=== PATIENT | male | born 1960 | race Caucasian/White ===

== ENCOUNTER 2016-08-14 21:38 | Emergency (ER) | payer OTHER ==
[2016-08-14] MEDS ORDERED: ASPIRIN TABLET 325 MG TAB PO ONE (21:40)
[2016-08-14] MEDS ORDERED: SODIUM CHLORIDE 0.9% (FLUSH) 10 ML SYG IV PRN (21:40)
--- NOTE | 2016-08-14 22:14 | ED.PDOC ---
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 Improving Factors: nothing Worsening Factors: nothing Nitro Today/Relief: provided by ED Aspirin Treatment Today: provided by ED Associated Symptoms: cough, shortness of breath, other - dizziness,pain on respiration Allergies/Adverse Reactions: Allergies Codeine Allergy (Verified 08/14/16 21:38) Meperidine [From Demerol HCl] Allergy (Verified 08/14/16 21:38) Home Medications: Ambulatory Orders Aripiprazole [Abilify] 30 mg PO BEDTIME 06/22/14 Trazodone HCl 100 mg PO BEDTIME 06/22/14 cloNAZepam [KlonoPIN] 0.5 mg PO BID 02/24/15 Lisinopril 10 mg PO DAILY 09/12/15 Ibuprofen 400 mg PO Q6H PRN #100 tab 02/16/16 Aspirin [Aspirin Adult Low Dose] 81 mg PO DAILY #120 tab 08/15/16 Nitroglycerin 0.4 mg (ER Disp) [Nitrostat] 0.4 mg SL Q5MIN PRN #30 tab 08/15/16 Review of Systems - Review of Systems Constitutional: States: no symptoms reported EENTM: States: no symptoms reported Respiratory: States: cough Cardiology: States: see HPI Gastrointestinal/Abdominal: States: no symptoms reported Genitourinary: States: no symptoms reported Musculoskeletal: States: no symptoms reported Skin: States: no symptoms reported Neurological: States: no symptoms reported Endocrine: States: no symptoms reported Hematologic/Lymphatic: States: no symptoms reported Past Medical History (General) - Patient Medical History Hx Seizures: No Hx Stroke: No Hx Dementia: No Hx Asthma: Yes Hx of COPD: No Hx Cardiac Disorders: Yes - Murmur Hx Congestive Heart Failure: No Hx Pacemaker: No Hx Hypertension: Yes Hx Thyroid Disease: No Hx Diabetes: No Hx Gastroesophageal Reflux: Yes Hx Renal Disease: No Hx Cancer: No Hx of HIV: No Hx Hepatitis C: No Hx MRSA: No Hx Other PMH: Yes - bipolar disorder Surgical History: appendectomy - Vaccination History Hx Tetanus, Diphtheria Vaccination: No Hx Influenza Vaccination: Yes Hx Pneumococcal Vaccination: No - Social History Hx Tobacco Use: No - quit 15 yr ago Hx Chewing Tobacco Use: No Hx Alcohol Use: No Hx Substance Use: No Hx Substance Use Treatment: No Hx Depression: No Hx Physical Abuse: No Hx Emotional Abuse: No Hx Suspected Abuse: No - Activities of Daily Living Patient Lives Alone: No - fiancee Family Medical History - Family History Mother Living Status: Still Living Hx Family Stroke: Yes Hx Cardiac Disease: Yes Hx Family Diabetes: Yes Hx Family Cancer: Yes - Lung CA Physical Exam - Physical Exam General Appearance: Alert, No apparent distress Eyes, Ears, Nose, Throat Exam: PERRL/EOMI, normal ENT inspection, pharynx normal Neck: non-tender, full range of motion, supple, normal inspection Respiratory: chest non-tender, lungs clear, normal breath sounds, no respiratory distress, no accessory muscle use Cardiovascular/Chest: normal peripheral pulses, regular rate, rhythm, no edema, no gallop, no JVD, no murmur Gastrointestinal/Abdominal: normal bowel sounds, non tender, soft, no organomegaly Extremity: normal range of motion, non-tender, normal inspection, no pedal edema Neurologic: no motor/sensory deficits, alert, normal mood/affect, oriented x 3 Skin Exam: normal color, warm/dry Lymphatic: no adenopathy Progress - Progress Progress: 08/15/16 00:54 Patient presently chest pain free;2nd set of troponin-normal;Discuss test results with patient no laboratory findings or ekg findings of myocardial injury and recommended admit for hospital observation to check for cardiac markers but declined to stay.He stated that he will follow up with his primary md. - Results/Orders Results/Orders: 08/14/16 21:40 IV Care:Saline Lock per Protoc QSHIFT Telemetry .ONCE Sodium Chloride 0.9% (Flush) [Saline Flush Syringe] 10 ml IV PRN PRN EKG Stat Pulse Ox Stat Chest,1 View [RAD] Stat 08/14/16 21:45 D-DIMER,QUANTITATIVE Stat Laboratory Results WBC 7.8 K/mm3 (4.8-10.8) 08/14/16 21:45 RBC 5.38 M/mm3 (4.70-6.10) 08/14/16 21:45 Hgb 16.2 gm/dL (14.0-18.0) 08/14/16 21:45 Hct 48.6 % (42.0-52.0) 08/14/16 21:45 MCV 90.3 fl (80.0-94.0) 08/14/16 21:45 MCH 30.1 pg (27.0-31.0) 08/14/16 21:45 MCHC 33.3 g/dL (33.0-37.0) 08/14/16 21:45 RDW 14.4 % (11.5-14.5) 08/14/16 21:45 Plt Count 163 K/mm3 (130-400) 08/14/16 21:45 MPV 7.1 fl (7.40-10.4) L 08/14/16 21:45 Absolute Neuts (auto) 4.90 K/uL (1.8-6.8) 08/14/16 21:45 Absolute Lymphs (auto) 2.00 K/uL (1.0-3.4) 08/14/16 21:45 Absolute Monos (auto) 0.60 K/uL (0.2-0.8) 08/14/16 21:45 Absolute Eos (auto) 0.20 K/uL (0.0-0.4) 08/14/16 21:45 Absolute Basos (auto) 0.00 K/uL (0.0-0.1) 08/14/16 21:45 Neutrophils % 62.6 % (42.0-78.0) 08/14/16 21:45 Lymphocytes % 26.2 % (20.0-50.0) 08/14/16 21:45 Monocytes % 8.2 % (2.0-9.0) 08/14/16 21:45 Eosinophils % 2.7 % (1.0-5.0) 08/14/16 21:45 Basophils % 0.3 % (0.0-2.0) 08/14/16 21:45 PT 11.6 SECONDS (9.4-12.5) 08/14/16 21:45 INR 1.030 08/14/16 21:45 PTT (SP) 35.3 SECONDS (25.1-36.5) 08/14/16 21:45 Sodium 138 mmol/L (135-145) 08/14/16 21:45 Potassium 3.4 mmol/L (3.6-5.0) L 08/14/16 21:45 Chloride 100 mmol/L (101-111) L 08/14/16 21:45 Carbon Dioxide 30 mmol/L (21-31) 08/14/16 21:45 Anion Gap 11.4 (12-18) L 08/14/16 21:45 BUN 20 mg/dL (7-18) H 08/14/16 21:45 Creatinine 1.06 mg/dL (0.6-1.3) 08/14/16 21:45 BUN/Creatinine Ratio 18.9 (10-20) 08/14/16 21:45 Random Glucose 125 mg/dL (70-105) H 08/14/16 21:45 Serum Osmolality 279.8 mOsm/L (275-295) 08/14/16 21:45 Calcium 9.0 mg/dL (8.4-10.2) 08/14/16 21:45 Magnesium 1.9 mg/dL (1.8-2.5) 08/14/16 21:45 Creatine Kinase 58 IU/L (38-174) 08/14/16 21:45 CK-MB (CK-2) 1.4 ng/mL (0.0-4.4) 08/14/16 21:45 CK-MB (CK-2) % Not Reportable 08/14/16 21:45 Troponin I < 0.02 ng/mL (0.01-0.05) 08/14/16 21:45 B-Natriuretic Peptide < 5.0 pg/ml (0-100) 08/14/16 21:45 08/14/16 21:40 IV Care:Saline Lock per Protoc QSHIFT Telemetry .ONCE Sodium Chloride 0.9% (Flush) [Saline Flush Syringe] 10 ml IV PRN PRN EKG Stat Pulse Ox Stat 08/15/16 00:05 EKG Assessment ONCE 08/15/16 00:15 EKG STAT Laboratory Results WBC 7.8 K/mm3 (4.8-10.8) 08/14/16 21:45 RBC 5.38 M/mm3 (4.70-6.10) 08/14/16 21:45 Hgb 16.2 gm/dL (14.0-18.0) 08/14/16 21:45 Hct 48.6 % (42.0-52.0) 08/14/16 21:45 MCV 90.3 fl (80.0-94.0) 08/14/16 21:45 MCH 30.1 pg (27.0-31.0) 08/14/16 21:45 MCHC 33.3 g/dL (33.0-37.0) 08/14/16 21:45 RDW 14.4 % (11.5-14.5) 08/14/16 21:45 Plt Count 163 K/mm3 (130-400) 08/14/16 21:45 MPV 7.1 fl (7.40-10.4) L 08/14/16 21:45 Absolute Neuts (auto) 4.90 K/uL (1.8-6.8) 08/14/16 21:45 Absolute Lymphs (auto) 2.00 K/uL (1.0-3.4) 08/14/16 21:45 Absolute Monos (auto) 0.60 K/uL (0.2-0.8) 08/14/16 21:45 Absolute Eos (auto) 0.20 K/uL (0.0-0.4) 08/14/16 21:45 Absolute Basos (auto) 0.00 K/uL (0.0-0.1) 08/14/16 21:45 Neutrophils % 62.6 % (42.0-78.0) 08/14/16 21:45 Lymphocytes % 26.2 % (20.0-50.0) 08/14/16 21:45 Monocytes % 8.2 % (2.0-9.0) 08/14/16 21:45 Eosinophils % 2.7 % (1.0-5.0) 08/14/16 21:45 Basophils % 0.3 % (0.0-2.0) 08/14/16 21:45 PT 11.6 SECONDS (9.4-12.5) 08/14/16 21:45 INR 1.030 08/14/16 21:45 PTT (SP) 35.3 SECONDS (25.1-36.5) 08/14/16 21:45 D-Dimer, Quantitative < 230 ng/mL (0-230) 08/14/16 21:45 Sodium 138 mmol/L (135-145) 08/14/16 21:45 Potassium 3.4 mmol/L (3.6-5.0) L 08/14/16 21:45 Chloride 100 mmol/L (101-111) L 08/14/16 21:45 Carbon Dioxide 30 mmol/L (21-31) 08/14/16 21:45 Anion Gap 11.4 (12-18) L 08/14/16 21:45 BUN 20 mg/dL (7-18) H 08/14/16 21:45 Creatinine 1.06 mg/dL (0.6-1.3) 08/14/16 21:45 BUN/Creatinine Ratio 18.9 (10-20) 08/14/16 21:45 Random Glucose 125 mg/dL (70-105) H 08/14/16 21:45 Serum Osmolality 279.8 mOsm/L (275-295) 08/14/16 21:45 Calcium 9.0 mg/dL (8.4-10.2) 08/14/16 21:45 Magnesium 1.9 mg/dL (1.8-2.5) 08/14/16 21:45 Creatine Kinase 58 IU/L (38-174) 08/14/16 21:45 CK-MB (CK-2) 1.4 ng/mL (0.0-4.4) 08/14/16 21:45 CK-MB (CK-2) % Not Reportable 08/14/16 21:45 Troponin I < 0.02 ng/mL (0.01-0.05) 08/15/16 00:10 B-Natriuretic Peptide < 5.0 pg/ml (0-100) 08/14/16 21:45 - EKG/XRAY/CT EKG: Sinus, no ST T wave changes Comments: no acute changes of myocardial ischemia or injury XRAY: chest - no acute abnormality Departure - Departure Clinical Impression: Chest pain, unspecified Qualifiers: Chest pain type: unspecified Qualifier Code: (R07.9) Chest pain, unspecified Time of Disposition: 01:01 Disposition: Discharge to Home or Self Care Condition: Good Departure Forms: ED Discharge - Pt. Copy, Patient Portal Self Enrollment Instructions: DI for Chest Pain Referrals: Faye Salvador NP [Primary Care Provider] - 1-2 Weeks Prescriptions: Nitroglycerin 0.4 mg (ER Disp) [Nitrostat] 0.4 mg SL Q5MIN PRN #30 tab PRN Reason: Chest Pain Aspirin [Aspirin Adult Low Dose] 81 mg PO DAILY #120 tab Home Medications: Ambulatory Orders Aripiprazole [Abilify] 30 mg PO BEDTIME 06/22/14 Trazodone HCl 100 mg PO BEDTIME 06/22/14 cloNAZepam [KlonoPIN] 0.5 mg PO BID 02/24/15 Lisinopril 10 mg PO DAILY 09/12/15 Ibuprofen 400 mg PO Q6H PRN #100 tab 02/16/16 Aspirin [Aspirin Adult Low Dose] 81 mg PO DAILY #120 tab 08/15/16 Nitroglycerin 0.4 mg (ER Disp) [Nitrostat] 0.4 mg SL Q5MIN PRN #30 tab 08/15/16 Additional Instructions: RETURN TO EMERGENCY ROOM NEEDED
[2016-08-14 22:18] VITALS: TEMP 97.4; O2SAT 95
[2016-08-14] MEDS ORDERED: NITROGLYCERIN 0.4 MG 25 EA TAB SL ONE (22:22)
[2016-08-15 01:25] VITALS: BP 108/70
[2016-08-15] MEDS ORDERED: PRAVASTATIN SODIUM 20 MG TAB PO SCH (21:00)
--- NOTE | 2016-08-18 13:46 | RAD ---
EXAM DESCRIPTION: Chest,1 View CLINICAL HISTORY: chest pain COMPARISON: October 09, 2015 FINDINGS: Cardiac silhouette is within normal limits. EKG leads project over the chest. Linear opacities at the left lower lung may represent scar versus subsegmental atelectasis. Similar findings were noted in the prior examination. There is no acute osseous process visualized. IMPRESSION: No evidence of acute cardiopulmonary disease. Electronically signed by: Refugio Lange MD 08/14/2016 10:11 PM SECTION PLOTTER OPERATOR
--- NOTE | 2016-08-23 00:22 | RAD ---
EXAM DESCRIPTION: Chest,1 View CLINICAL HISTORY: chest pain COMPARISON: October 09, 2015 FINDINGS: Cardiac silhouette is within normal limits. EKG leads project over the chest. Linear opacities at the left lower lung may represent scar versus subsegmental atelectasis. Similar findings were noted in the prior examination. There is no acute osseous process visualized. IMPRESSION: No evidence of acute cardiopulmonary disease. Electronically signed by: Refugio Lange MD 08/14/2016 10:[address]TER
--- NOTE | 2016-08-23 00:22 | RAD ---
EXAM DESCRIPTION: Chest,1 View CLINICAL HISTORY: chest pain COMPARISON: October 09, 2015 FINDINGS: Cardiac silhouette is within normal limits. EKG leads project over the chest. Linear opacities at the left lower lung may represent scar versus subsegmental atelectasis. Similar findings were noted in the prior examination. There is no acute osseous process visualized. IMPRESSION: No evidence of acute cardiopulmonary disease. Electronically signed by: Refugio Lange MD 08/14/2016 10:11 PM STEAM POWER PLANT OPERATOR
== END 2016-08-15 01:25 | disposition home or self-care (01) ==
LOC: ER 21:38
DX: R07.9 Chest pain, unspecified (principal); I25.2 Old myocardial infarction; I10 Essential (primary) hypertension; K21.9 Gastro-esophageal reflux disease without esophagitis; F31.9 Bipolar disorder, unspecified; Z88.6 Allergy status to analgesic agent; Z88.8 Allergy status to other drugs, medicaments and biological substances; Z79.899 Other long term (current) drug therapy; Z79.82 Long term (current) use of aspirin; J45.909 Unspecified asthma, uncomplicated; Z87.891 Personal history of nicotine dependence

== ENCOUNTER → 2016-11-01 | Outpatient (CLI) | payer OTHER | LOC: SL 20:30 | PROVIDERS: ATTEND Nurse Practitioner Family | DX: G47.30 Sleep apnea, unspecified (principal) ==

== ENCOUNTER → 2016-12-27 | Outpatient (CLI) | payer OTHER | END | disposition home or self-care (01) | LOC: LAB.O 09:33 | PROVIDERS: ATTEND Psychiatry & Neurology Psychiatry | DX: Z79.899 Other long term (current) drug therapy (principal) ==

== ENCOUNTER → 2017-01-11 | Outpatient (CLI) | payer OTHER ==
--- NOTE | 2017-01-12 09:32 | RAD ---
EXAM DESCRIPTION: Chest,2 Views CLINICAL HISTORY: COUGH COMPARISON: August 14, 2016 TECHNIQUE: PA/lateral FINDINGS: The lungs appear very little change from prior study with crowded markings at both lung bases, right greater than left with mild scarring or chronic atelectasis suspected. Slight increase in density in the medial right lung base may be present and minimal additional infiltrate or atelectasis suspected. The mid and upper lung spring are stable and unremarkable in heart size and vascularity is normal. IMPRESSION: Coarse basilar markings, little changed from prior study with a slight increase in density in the medial right lung base suggesting possibly minimal bronchopneumonia or additional atelectasis Electronically signed by: Owen Delarosa MD 01/12/2017 9:30 AM CDT
== END ==
LOC: RAD 13:15
PROVIDERS: ATTEND Nurse Practitioner Family
DX: R05 Cough (principal)

== ENCOUNTER → 2017-02-02 | Outpatient (CLI) | payer OTHER ==
--- NOTE | 2017-02-02 17:11 | RAD ---
EXAM DESCRIPTION: Cervical Spine,3 Views CLINICAL HISTORY: 56 years Male, COUGH COMPARISON: None. FINDINGS: Three views of the cervical spine demonstrate advanced degenerative disc narrowing and anterior spurring at C5-6 and C6-7 with milder facet arthropathy. Pulmonary apices are clear. No fracture or deformity is seen and no soft tissue masses noted. IMPRESSION: Degenerative disc changes and anterior spurring at C5-6 and C6-7. Electronically signed by: Owen Delarosa MD 02/02/2017 5:10 PM CDT
--- NOTE | 2017-02-02 17:13 | RAD ---
EXAM DESCRIPTION: Chest,2 Views CLINICAL HISTORY: RADICULOPATHY COMPARISON: January 11, 2017, August 14, 2016 TECHNIQUE: PA/lateral FINDINGS: Coarse markings in the lung bases, more prominently on the right are stable and little changed from recent study January 11, 2017. Pattern is slightly more prominent medially on the right in comparison to prior July study. An element of atelectasis or inflammation should be considered. Stranding at the lateral left lung base is actually less prominent than previously seen. The mid and upper lung spring are essentially clear except for slight thickening along the major fissure on the right which is little changed IMPRESSION: Very little change in the appearance of the chest with coarsened basilar markings particularly in the medial right lung base. Atelectasis or patchy infiltrate cannot be excluded. Electronically signed by: Owen Delarosa MD 02/02/2017 5:12 PM CDT
== END | disposition home or self-care (01) ==
LOC: YCFC.O 08:19
PROVIDERS: ATTEND Nurse Practitioner Family
DX: R05 Cough (principal); M54.2 Cervicalgia

== ENCOUNTER → 2017-02-04 | Outpatient (CLI) | payer OTHER ==
--- NOTE | 2017-02-07 08:46 | RAD ---
EXAM DESCRIPTION: None. There is no study which is sometimes this did not show Complete CLINICAL HISTORY: Left knee pain 56 years, Male, KNEE PN COMPARISON: None. FINDINGS: Three views do not demonstrate fracture or dislocation. Mild narrowing patellofemoral joint space and medially. IMPRESSION: Mild degenerative change without fracture or dislocation Electronically signed by: Stephane London MD 02/07/2017 8:45 AM CDT
--- NOTE | 2017-02-07 08:48 | RAD ---
EXAM DESCRIPTION: Knee,Right Complete CLINICAL HISTORY: 56 years, Male, KNEE PN COMPARISON: None. FINDINGS: No fracture or dislocation. Moderate narrowing patellofemoral joint space and medially with spurring. Degenerative changes slightly more advanced than left side. Possible small joint effusion. IMPRESSION: Moderate degenerative changes without fracture or dislocation. Possible small joint effusion Electronically signed by: Stephane London MD 02/07/2017 8:47 AM CDT
== END | disposition home or self-care (01) ==
LOC: RESP 13:38
PROVIDERS: ATTEND Nurse Practitioner Family
DX: R91.8 Other nonspecific abnormal finding of lung field (principal); M17.0 Bilateral primary osteoarthritis of knee

== ENCOUNTER 2017-02-07 16:48 | Emergency (ER) | payer OTHER ==
[2017-02-07] MEDS ORDERED: IPRATROPIUM/ALBUTEROL 3 ML VIAL NEB ONE ×2 (17:01→17:04)
[2017-02-07 17:02] VITALS: TEMP 97.4
[2017-02-07] MEDS ORDERED: methylPREDNISolone SODIUM SUC 125 MG/2 ML VIAL IV ONE (17:03)
[2017-02-07] MEDS ORDERED: diphenhydrAMINE HCL 50 MG/ML VIAL IV ONE (17:03)
[2017-02-07] MEDS ORDERED: MONTELUKAST 10 MG TAB PO ONE (17:03)
--- NOTE | 2017-02-07 17:26 | RAD ---
EXAM DESCRIPTION: Chest,2 Views CLINICAL HISTORY: Shortness of breath. COMPARISON: February 02, 2017 FINDINGS: Frontal and lateral views of the chest. Redemonstration of coarse markings in the lung bases, more prominent on the right, and are not significantly changed relative to February 02, 2017. An element of atelectasis, inflammation/infiltrate, and/or fibrotic scarring should be considered. Lung volumes are hyperinflated, compatible with changes of COPD. Cardiomediastinal silhouette and pulmonary vascularity are not significantly changed compared to previous. No significant pleural effusion. No pneumothorax. IMPRESSION: 1. Overall not significantly changed compared to previous. Redemonstration of coarse markings in the lung bases bilaterally, more prominent on the right. An element of atelectasis, inflammation/infiltrate, and/or fibrotic scarring should be considered. 2. COPD changes. Electronically signed by: Peter Ellington MD 02/07/2017 5:25 PM CDT
--- NOTE | 2017-02-07 17:32 | RAD ---
EXAM DESCRIPTION: Neck,Soft Tissue CLINICAL HISTORY: sob COMPARISON: None. TECHNIQUE: AP and lateral FINDINGS: Loss of joint space is observed at the C5-6 and C6-7 levels. No soft tissue swelling is observed. No radiopaque foreign bodies are detected. The epiglottis and aryepiglottic folds are intact. IMPRESSION: Degenerative changes are observed in the lower cervical spine. No airway compromise is detected. Electronically signed by: Peter Medley MD 02/07/2017 5:31 PM CDT
[2017-02-07 17:46] VITALS: O2SAT 95
--- NOTE | 2017-02-07 18:39 | CT ---
PROCEDURE: Chest w/Contrast HISTORY: abn cxr, upper chest tightness/sob Indication: Same as above Comparison: Chest x-ray done on the same day Technique: CT of the chest was done with intravenous contrast, followed by orthogonal reconstructions. The patient was injected with contrast intravenously, without any documented immediate adverse reactions. This exam was performed according to our departmental dose-optimization program, which includes automated exposure control, adjustment of the mA and/or KV according to the patient's size and/or use of iterative reconstruction technique. FINDINGS: There are no discrete airspace infiltrates, pneumothoraces or pleural effusions. Slightly increased subpleural fat on the right side gives right pleural prominence, a benign finding. Underlying changes of COPD are noted There is no gross evidence of pulmonary embolism. There is no clinically significant thoracic aortic aneurysm or dissection. There is no clinically significant pericardial effusion. There are no pathologically enlarged lymph nodes in the mediastinum, bilateral hilar region, bilateral axillary or supraclavicular region. The visualized thoracic bony rib cage appears unremarkable. There is a small hiatal hernia The visualized upper abdominal viscera appears unremarkable. Mild degenerative changes are seen in the thoracic spine. IMPRESSION: There are no acute findings on the current study. Underlying changes of COPD and a small hiatal hernia Electronically signed by: Kristian Vasquez MD 02/07/2017 6:38 PM CDT Workstation: [id number]
[2017-02-07] MEDS ORDERED: predniSONE 20 MG TAB PO ONE (18:52)
[2017-02-07] MEDS ORDERED: ALPRAZolam 0.25 MG TAB PO ONE (18:52)
--- NOTE | 2017-02-07 20:33 | ED.PDOC ---
History of Present Illness - General Chief Complaint: Respiratory Problem Stated Complaint: shortness of breath x 45 min Time Seen by Provider: 02/07/17 17:02 Source: patient, family Exam Limitations: no limitations - History of Present Illness Initial Comments: the patient is a 56-year-old male presenting to the emergency room secondary to a sensation of swelling in his throat and feeling like he is having difficulty controlling his secretions. This started approximately 1 hour prior to arrival. The patient is not tachypneic. He is oxygenating well. There are no rales or decreased breath sounds. no chest pain. No swelling of the tongue. No hives. No rash. No itching. He has not taken anything that he knows that he is allergic to. No swelling of the lips. No sore throat. No runny nose. He does have significant sleep apnea and has just started treatment for that.the patient also reports that he was diagnosed with pneumonia a month ago and has had a persistent cough since. Timing/Duration: 1 hour Severity: moderate Improving Factors: nothing Worsening Factors: nothing Associated Symptoms: denies symptoms Allergies/Adverse Reactions: Allergies Codeine Allergy (Verified 08/14/16 21:38) Meperidine [From Demerol HCl] Allergy (Verified 08/14/16 21:38) Home Medications: Ambulatory Orders Aripiprazole [Abilify] 30 mg PO BEDTIME 06/22/14 Trazodone HCl 100 mg PO BEDTIME 06/22/14 cloNAZepam [KlonoPIN] 0.5 mg PO BID 02/24/15 Lisinopril 10 mg PO DAILY 09/12/15 Ibuprofen [Goodsense Ibuprofen] 400 mg PO Q6H PRN #100 tab 02/16/16 Aspirin [Aspirin Adult Low Dose] 81 mg PO DAILY #120 tab 08/15/16 Nitroglycerin 0.4 mg (ER Disp) [Nitrostat] 0.4 mg SL Q5MIN PRN #30 tab 08/15/16 Review of Systems - Review of Systems Constitutional: States: no symptoms reported EENTM: States: no symptoms reported Respiratory: States: cough, short of breath Cardiology: States: no symptoms reported Gastrointestinal/Abdominal: States: no symptoms reported Genitourinary: States: no symptoms reported Musculoskeletal: States: no symptoms reported Skin: States: no symptoms reported Neurological: States: no symptoms reported Endocrine: States: no symptoms reported All other Systems: No Change from Baseline Past Medical History (General) - Patient Medical History Hx Seizures: No Hx Stroke: No Hx Dementia: No Hx Asthma: No Hx of COPD: No Hx Cardiac Disorders: Yes Hx Congestive Heart Failure: No Hx Pacemaker: No Hx Hypertension: Yes Hx Thyroid Disease: No Hx Diabetes: No Hx Gastroesophageal Reflux: No Hx Renal Disease: No Hx Cancer: No Hx of HIV: No Hx Hepatitis C: No Hx MRSA: No - Vaccination History Hx Tetanus, Diphtheria Vaccination: Yes Hx Influenza Vaccination: Yes Hx Pneumococcal Vaccination: Yes Immunizations Up to Date: Yes - Social History Hx Tobacco Use: No Hx Chewing Tobacco Use: No Hx Alcohol Use: No Hx Substance Use: No Hx Substance Use Treatment: No Hx Depression: No Feels Threatened In Home Enviroment: No Feels Threatened In a Relationship: No Hx Physical Abuse: No Hx Emotional Abuse: No Hx Suspected Abuse: No - Female History Patient is a Female of Child Bearing Age (10 -59 yrs old): No Patient : No Family Medical History - Family History Mother Family History: No Known Living Status: Still Living Hx Family Stroke: Yes Hx Cardiac Disease: Yes Hx Family Diabetes: Yes Hx Family Cancer: Yes - Lung CA Physical Exam - Physical Exam General Appearance: Alert, Anxious Eye Exam: bilateral normal Ears, Nose, Throat: hearing grossly normal, normal pharynx, other - the patient does look anxious. He is breathing a little bit harder than normal. I feel no swelling around the neck. I hear no stridor. His voice is a little bit hoarse but apparently that is not unusual. Neck: non-tender, full range of motion, supple Respiratory: chest non-tender, lungs clear, normal breath sounds, no respiratory distress, no accessory muscle use Cardiovascular/Chest: normal peripheral pulses, regular rate, rhythm, no edema Peripheral Pulses: radial,right: 2+, radial,left: 2+, dorsalis pedis,right: 2+, dorsalis pedis,left: 2+ Gastrointestinal/Abdominal: non tender, soft Rectal Exam: deferred Back Exam: normal inspection Extremity: normal range of motion, non-tender, normal inspection, no pedal edema , normal capillary refill Neurologic: board winder II-XII nml as tested, alert, normal mood/affect, oriented x 3 Skin Exam: normal color Comments: Vital Signs - 24 hr 02/07/17 02/07/17 02/07/17 16:56 17:03 17:05 Temperature 97.4 F L Pulse Rate 98 H Pulse Rate [ 93 H Left Radial] Respiratory 24 24 20 Rate Blood Pressure 149/89 [Left Arm] O2 Sat by Pulse 96 98 Oximetry 02/07/17 17:45 Temperature Pulse Rate Pulse Rate [ 87 Left Radial] Respiratory 22 Rate Blood Pressure 117/69 [Left Arm] O2 Sat by Pulse 95 Oximetry Progress - Progress Progress: 02/07/17 20:35 the patient is a 56-year-old male presenting with shortness of breath due to a sensation of fullness around the base of his neck. It is difficult to tell if this is an allergic reaction or possibly a mild chemical tracheitis from aspiration. The patient received a dose of steroids along with the dose of Singulair and Benadryl. The patient was monitored for approximately 5 hours. Symptoms have improved. Chest x-ray and lateral neck x-ray as well as CT scan of the chest did not show any definitive etiology. Nasolaryngoscopy by az shows mobile vocal cords. 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 He does need to continue his CPAP at night. ER warnings were given for any worsening. The patient is to follow up with his primary care doctor within the next 48 hours. The patient has symptomatically improved significantly since arrival. - Results/Orders Results/Orders: Laboratory Tests 02/07/17 02/07/17 02/07/17 17:04 17:04 17:04 WBC 6.9 RBC 4.95 Hgb 15.1 Hct 44.8 MCV 90.4 MCH 30.5 MCHC 33.7 RDW 14.1 Plt Count 184 MPV 6.9 L Absolute Neuts (auto) 4.20 Absolute Lymphs (auto) 1.60 Absolute Monos (auto) 0.80 Absolute Eos (auto) 0.30 Absolute Basos (auto) 0.00 Neutrophils % 61.5 Lymphocytes % 22.6 Monocytes % 11.4 H Eosinophils % 4.1 Basophils % 0.4 PT 12.1 INR 1.070 PTT (SP) 34.7 Sodium 140 Potassium 4.0 Chloride 104 Carbon Dioxide 28 Anion Gap 12.0 BUN 15 Creatinine 0.82 BUN/Creatinine Ratio 18.3 Random Glucose 86 Serum Osmolality 279.5 Calcium 8.6 Total Bilirubin 0.4 AST 15 ALT 13 Alkaline Phosphatase 91 Creatine Kinase 76 CK-MB (CK-2) 1.7 CK-MB (CK-2) % Not Reportable Troponin I < 0.02 B-Natriuretic Peptide < 5.0 Serum Total Protein 6.7 Albumin 3.9 Globulin 2.8 Albumin/Globulin Ratio 1.4 cT scan of the chest shows chronic pleural thickening. No definitive infiltrates. No definite masses. Chest x-ray shows chronic changes. EKG shows normal sinus rhythmwithout acute ST segment changes concerning for ischemia. Normal QT interval. Departure - Departure Clinical Impression: Dyspnea Qualifiers: Dyspnea type: shortness of breath Qualified Code(s): R06.02 - Shortness of breath; R06.00 - Dyspnea, unspecified; R06.01 - Orthopnea Disposition: Discharge to Home or Self Care Condition: Fair Departure Forms: ED Discharge - Pt. Copy, Patient Portal Self Enrollment Diet: regular diet Activity: increase activity as tolerated Referrals: Faye Salvador NP [Primary Care Provider] - 1-2 Days Home Medications: Ambulatory Orders Aripiprazole [Abilify] 30 mg PO BEDTIME 06/22/14 Trazodone HCl 100 mg PO BEDTIME 06/22/14 cloNAZepam [KlonoPIN] 0.5 mg PO BID 02/24/15 Lisinopril 10 mg PO DAILY 09/12/15 Ibuprofen [Goodsense Ibuprofen] 400 mg PO Q6H PRN #100 tab 02/16/16 Aspirin [Aspirin Adult Low Dose] 81 mg PO DAILY #120 tab 08/15/16 Nitroglycerin 0.4 mg (ER Disp) [Nitrostat] 0.4 mg SL Q5MIN PRN #30 tab 08/15/16 Additional Instructions: the patient is a 56-year-old male presenting with shortness of breath due to a sensation of fullness around the base of his neck. It is difficult to tell if this is an allergic reaction or possibly a mild chemical tracheitis from aspiration. The patient received a dose of steroids along with the dose of Singulair and Benadryl. The patient was monitored for approximately 5 hours. Symptoms have improved. Chest x-ray and lateral neck x-ray as well as CT scan of the chest did not show any definitive etiology. Nasolaryngoscopy by az shows mobile vocal cords. 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 He does need to continue his CPAP at night. ER warnings were given for any worsening. The patient is to follow up with his primary care doctor within the next 48 hours. The patient has symptomatically improved significantly since arrival.
[2017-02-07 20:52] VITALS: BP 127/75
== END 2017-02-07 20:52 | disposition home or self-care (01) ==
LOC: ER 16:48
DX: R06.02 Shortness of breath (principal); I10 Essential (primary) hypertension; G47.30 Sleep apnea, unspecified; Z80.1 Family history of malignant neoplasm of trachea, bronchus and lung; Z88.6 Allergy status to analgesic agent; Z88.8 Allergy status to other drugs, medicaments and biological substances; Z79.899 Other long term (current) drug therapy
CPT/HCPCS: 36415; 70360; 71020; 71260; 80053; 82550; 82553; 83880; 84484; 85025; 85610; 85730; 87502; 93005; 94640; J1200; J2930; J7512; J7620

== ENCOUNTER → 2017-02-09 | Outpatient (CLI) | payer OTHER ==
--- NOTE | 2017-02-09 13:21 | RAD ---
EXAM DESCRIPTION: Knee,Left Complete CLINICAL HISTORY: 56 years, Male, KNEE PN COMPARISON: February 04 FINDINGS: Four views obtained. No fracture or dislocation. Mild narrowing patellofemoral joint space. No clearly seen joint effusion. IMPRESSION: No fracture or dislocation. Moderate degenerative change. No significant difference compared to February 04 Electronically signed by: Stephane London MD 02/09/2017 1:20 PM CDT
--- NOTE | 2017-02-09 13:23 | RAD ---
EXAM DESCRIPTION: Pelvis CLINICAL HISTORY: 56 years, Male, HIP PN COMPARISON: May 31, 2016 FINDINGS: No fracture or dislocation. Mild degenerative narrowing of both hips more on the right. Mild sacroiliac degenerative change, more on the right IMPRESSION: No fracture or dislocation. Mild degenerative change. Electronically signed by: Stephane London MD 02/09/2017 1:22 PM CDT
== END ==
LOC: RAD 09:47
PROVIDERS: ATTEND Orthopaedic Surgery
DX: M25.562 Pain in left knee (principal); M25.552 Pain in left hip

== ENCOUNTER → 2017-02-14 | Outpatient (CLI) | payer OTHER ==
--- NOTE | 2017-02-14 11:53 | RAD ---
EXAM DESCRIPTION: Shoulder,Left 2 or More Views CLINICAL HISTORY: PAIN COMPARISON: None. IMPRESSION: 4 views of the left shoulder show no evidence of acute fracture, focal bone destruction, or joint dislocation. The left acromioclavicular joint is unremarkable. Mild left apical pleural thickening is seen without bone erosive changes. Visualized left ribs are unremarkable Electronically signed by: Jakob Hoffmann MD 02/14/2017 11:52 AM CDT
== END | disposition home or self-care (01) ==
LOC: RAD 07:48
PROVIDERS: ATTEND Nurse Practitioner Family
DX: M25.512 Pain in left shoulder (principal)

== ENCOUNTER → 2017-03-16 | Outpatient (CLI) | payer OTHER | END | disposition home or self-care (01) | LOC: YCFC.O 11:47 | PROVIDERS: ATTEND Nurse Practitioner Family | DX: R60.9 Edema, unspecified (principal) ==

== ENCOUNTER 2017-03-20 13:03 | Emergency (ER) | payer OTHER ==
[2017-03-20 13:52] VITALS: TEMP 98.8
[2017-03-20 15:12] VITALS: O2SAT 95
--- NOTE | 2017-03-20 15:45 | ED.PDOC ---
History of Present Illness - General Chief Complaint: Cardiovascular Problem Stated Complaint: swelling in legs and feet,shortness of breath Time Seen by Provider: 03/20/17 13:41 Source: patient Exam Limitations: no limitations - History of Present Illness Initial Comments: René Mark 56 y/o male stated that his legs had been swelled up the last one week with pain on weight bearing both legs.Also was SOB but no chest pains.No cough no fever.Has also hx of psoriasis no medication taken. Timing/Duration: other - one week Severity: moderate Worsening Factors: nothing Associated Symptoms: shortness of breath Allergies/Adverse Reactions: Allergies Codeine Allergy (Verified 08/14/16 21:38) Meperidine [From Demerol HCl] Allergy (Verified 08/14/16 21:38) Home Medications: Ambulatory Orders Aripiprazole [Abilify] 30 mg PO BEDTIME 06/22/14 Trazodone HCl 100 mg PO BEDTIME 06/22/14 cloNAZepam [KlonoPIN] 0.5 mg PO BID 02/24/15 Lisinopril 10 mg PO DAILY 09/12/15 Ibuprofen [Goodsense Ibuprofen] 400 mg PO Q6H PRN #100 tab 02/16/16 Aspirin [Aspirin Adult Low Dose] 81 mg PO DAILY #120 tab 08/15/16 Nitroglycerin 0.4 mg (ER Disp) [Nitrostat] 0.4 mg SL Q5MIN PRN #30 tab 08/15/16 Hydrochlorothiazide 25 mg PO DAILY 03/20/17 Primidone 03/20/17 Review of Systems - Review of Systems Constitutional: States: no symptoms reported EENTM: States: no symptoms reported Respiratory: States: see HPI Cardiology: States: no symptoms reported Gastrointestinal/Abdominal: States: no symptoms reported Genitourinary: States: no symptoms reported Musculoskeletal: States: see HPI Past Medical History (General) - Patient Medical History Hx Seizures: No Hx Stroke: No Hx Dementia: No Hx Asthma: No Hx of COPD: Yes Hx Cardiac Disorders: Yes Hx Congestive Heart Failure: No Hx Pacemaker: No Hx Hypertension: Yes Hx Thyroid Disease: No Hx Diabetes: No Hx Gastroesophageal Reflux: No Hx Renal Disease: No Hx Cancer: No Hx of HIV: No Hx Hepatitis C: No Hx MRSA: No Surgical History: appendectomy - Vaccination History Hx Tetanus, Diphtheria Vaccination: Yes Hx Influenza Vaccination: Yes Hx Pneumococcal Vaccination: Yes - Social History Hx Tobacco Use: Yes Hx Chewing Tobacco Use: No Hx Alcohol Use: No Hx Substance Use: No Hx Substance Use Treatment: No Hx Depression: No Hx Physical Abuse: No Hx Emotional Abuse: No Hx Suspected Abuse: No - Activities of Daily Living Patient Lives Alone: No - fiancee Grooming Ability: Independent Eating (Feeding) Ability: Independent Toileting Ability: Independent - Female History Patient : No Family Medical History - Family History Mother Family History: No Known Living Status: Still Living Hx Family Hypertension: Yes Hx Family Stroke: Yes - dad Hx Cardiac Disease: Yes Hx Family Diabetes: Yes - parents Hx Family Cancer: Yes - Lung CA Physical Exam - Physical Exam General Appearance: Alert, Comfortable, No apparent distress Eye Exam: bilateral normal Ears, Nose, Throat: hearing grossly normal, normal ENT inspection, normal pharynx Neck: non-tender, supple Respiratory: chest non-tender, lungs clear, normal breath sounds, no respiratory distress Cardiovascular/Chest: normal peripheral pulses, regular rate, rhythm, no gallop , no murmur Peripheral Pulses: radial,right: 1+, radial,left: 1+ Gastrointestinal/Abdominal: non tender, soft, no organomegaly Back Exam: no vertebral tenderness Extremity: no calf tenderness, pedal edema - +1 Neurologic: no motor/sensory deficits, alert, oriented x 3 Skin Exam: normal color, warm/dry, other - scaly lesion both feet Lymphatic: no adenopathy Progress - Progress Progress: 03/20/17 16:13 Vital Signs 03/20/17 03/20/17 13:47 15:11 Temperature 98.8 F Pulse Rate [ 91 H 62 Left Brachial] Respiratory 20 20 Rate Blood Pressure 123/72 116/77 [Left Arm] O2 Sat by Pulse 90 L 95 Oximetry - Results/Orders Results/Orders: Vital Signs - 8 hr 03/20/17 03/20/17 13:47 15:11 Temperature 98.8 F Pulse Rate [ 91 H 62 Left Brachial] Respiratory 20 20 Rate Blood Pressure 123/72 116/77 [Left Arm] O2 Sat by Pulse 90 L 95 Oximetry - EKG/XRAY/CT EKG: Sinus, no ST T wave changes Comments: heart rate-88 XRAY: chest - no acute abnormalities Departure - Departure Clinical Impression: Pain and swelling of lower leg Qualifiers: Laterality: unspecified laterality Qualified Code(s): M79.669 - Pain in unspecified lower leg; M79.89 - Other specified soft tissue disorders Time of Disposition: 17:29 Disposition: Discharge to Home or Self Care Condition: Fair Departure Forms: ED Discharge - Pt. Copy, Patient Portal Self Enrollment Referrals: Blanca Bains MD [Primary Care Provider] - 1-2 Weeks Home Medications: Ambulatory Orders Aripiprazole [Abilify] 30 mg PO BEDTIME 06/22/14 Trazodone HCl 100 mg PO BEDTIME 06/22/14 cloNAZepam [KlonoPIN] 0.5 mg PO BID 02/24/15 Lisinopril 10 mg PO DAILY 09/12/15 Ibuprofen [Goodsense Ibuprofen] 400 mg PO Q6H PRN #100 tab 02/16/16 Aspirin [Aspirin Adult Low Dose] 81 mg PO DAILY #120 tab 08/15/16 Nitroglycerin 0.4 mg (ER Disp) [Nitrostat] 0.4 mg SL Q5MIN PRN #30 tab 08/15/16 Hydrochlorothiazide 25 mg PO DAILY 03/20/17 Primidone 03/20/17 Additional Instructions: Follow up with primary md call for appointment
--- NOTE | 2017-03-20 16:39 | RAD ---
EXAM DESCRIPTION: Chest,2 Views CLINICAL HISTORY: 56 years Male sob COMPARISON: 02/07/2017 FINDINGS: Cardiac size and mediastinal contour appear unchanged. There is flattening of the hemidiaphragms bilaterally. There is some pleural thickening bilaterally as well as a triangular density overlying the right lateral chest which appears to correspond with prominent pleural fat as noted on the patient's prior examination. Sloping along the cardiac borders is also secondary to epicardial fat as noted on the previous study. There are areas of linear atelectasis in the lung bases. IMPRESSION: No acute abnormality is identified. Chronic changes as above Electronically signed by: Danica Omalley 03/20/2017 4:38 PM CDT
[2017-03-20 17:11] VITALS: BP 125/76
== END 2017-03-20 17:36 | disposition home or self-care (01) ==
LOC: ER 13:03
DX: M79.89 Other specified soft tissue disorders (principal); J44.9 Chronic obstructive pulmonary disease, unspecified; I10 Essential (primary) hypertension; M79.669 Pain in unspecified lower leg; Z87.891 Personal history of nicotine dependence; Z79.82 Long term (current) use of aspirin; Z79.899 Other long term (current) drug therapy; Z88.6 Allergy status to analgesic agent

== ENCOUNTER → 2017-04-11 | Outpatient (CLI) | payer OTHER ==
--- NOTE | 2017-04-11 09:43 | RAD ---
EXAM DESCRIPTION: XR CHEST 2 VIEWS CLINICAL HISTORY: DYSPNEA, UNSPECIFIED COMPARISON: 03/20/2017 TECHNIQUE: PA/lateral FINDINGS: Normal heart size. Prominent pulmonary arteries suggest pulmonary arterial hypertension. Similar appearance as on the prior study with mild volume loss in the lower lobes. There is no pulmonary edema, acute alveolar consolidation or large pleural effusion. Pleural thickening at the lung apices similar to previous study No acute bony abnormality IMPRESSION: Stable chest radiograph. See above Electronically signed by: Owen Antoine MD 04/11/2017 9:41 AM CDT
== END | disposition home or self-care (01) ==
LOC: LAB.O 09:00
PROVIDERS: ATTEND Nurse Practitioner Family
DX: R60.0 Localized edema (principal); R06.00 Dyspnea, unspecified

== ENCOUNTER 2017-05-19 19:55 | Emergency (ER) | payer OTHER ==
[2017-05-19] MEDS ORDERED: ASPIRIN TABLET 325 MG TAB PO ONE (20:05)
[2017-05-19] MEDS ORDERED: SODIUM CHLORIDE 0.9% (FLUSH) 10 ML SYG IV PRN (20:05)
[2017-05-19] MEDS ORDERED: KETOROLAC TROMETHAMINE INJ 30 MG/ML VIAL IV ONE (20:10)
[2017-05-19] MEDS ORDERED: predniSONE 20 MG TAB PO ONE (20:10)
[2017-05-19] MEDS ORDERED: diazePAM 2 MG TAB PO ONE (20:11)
[2017-05-19] MEDS ORDERED: POTASSIUM CHLORIDE ELIXIR 20 MEQ/15 ML UD PO ONE (20:32)
[2017-05-19 20:43] VITALS: O2SAT 94
--- NOTE | 2017-05-19 20:45 | RAD ---
EXAM DESCRIPTION: Chest,1 View CLINICAL HISTORY: chest pain COMPARISON: None FINDINGS: Cardiac silhouette is within normal limits. EKG leads project over the chest. There is no focal parenchymal or pleural disease. There is no acute osseous process visualized. IMPRESSION: No evidence of acute cardiopulmonary disease. Electronically signed by: Refugio Lange MD 05/19/2017 8:44 PM [employer]INE [employer]
[2017-05-19] MEDS ORDERED: ACETAMINOPHEN-CAFF-BUTALBITAL 1 EA TAB PO ONE (21:38)
[2017-05-19] MEDS ORDERED: ACETAMINOPHEN-CAFF-BUTALBITAL 1 EA TAB ONE (21:39)
--- NOTE | 2017-05-19 21:48 | ED.PDOC ---
History of Present Illness - General Chief Complaint: Chest Pain/[place] Stated Complaint: chest pain Time Seen by Provider: 05/19/17 20:04 Source: patient, family Exam Limitations: no limitations - History of Present Illness Initial Comments: The patient's a 57-year-old male presenting to the emergency room secondary to anterior precordial chest pain that woke him this morning at around 5 AM. The patient has recently had an increased dose of his Lasix secondary to some swelling. He is not having any shortness of breath. He is not having any particular COPD exacerbation. No fevers. He is having chest pain all day and it's been fairly consistent. He has taken a couple nitroglycerin which has not helped. The chest pain is worse with twisting and turning and and taking a deep breath or coughing or sneezing.no productive cough. No history of gout.e does have anterior chest wall tenderness to palpation. No visible changes. No bruising. No crepitus. Timing/Duration: unsure Severity: moderate Improving Factors: immobilization Worsening Factors: movement Associated Symptoms: chest pain Allergies/Adverse Reactions: Allergies Codeine Allergy (Verified 08/14/16 21:38) Meperidine [From Demerol HCl] Allergy (Verified 08/14/16 21:38) Home Medications: Ambulatory Orders Aripiprazole [Abilify] 30 mg PO BEDTIME 06/22/14 Trazodone HCl 100 mg PO BEDTIME 06/22/14 cloNAZepam [KlonoPIN] 0.5 mg PO BID 02/24/15 Lisinopril 10 mg PO DAILY 09/12/15 Ibuprofen [Goodsense Ibuprofen] 400 mg PO Q6H PRN #100 tab 02/16/16 Aspirin [Aspirin Adult Low Dose] 81 mg PO DAILY #120 tab 08/15/16 Nitroglycerin 0.4 mg (ER Disp) [Nitrostat] 0.4 mg SL Q5MIN PRN #30 tab 08/15/16 Hydrochlorothiazide 25 mg PO DAILY 03/20/17 Primidone 03/20/17 Dzigabdbpugyn-Lgqj-Ugnsxwgyqi [Fioricet] 1 ea PO Q8H PRN #21 tab 05/19/17 predniSONE [Prednisone] 20 mg PO DAILY #3 tab 05/19/17 Review of Systems - Review of Systems Constitutional: States: no symptoms reported EENTM: States: no symptoms reported Respiratory: States: no symptoms reported Cardiology: States: chest pain Gastrointestinal/Abdominal: States: no symptoms reported Genitourinary: States: no symptoms reported Musculoskeletal: States: see HPI Skin: States: no symptoms reported Neurological: States: no symptoms reported Endocrine: States: no symptoms reported All other Systems: No Change from Baseline Past Medical History (General) - Patient Medical History Hx Seizures: No Hx Stroke: No Hx Dementia: No Hx Asthma: No Hx of COPD: Yes Hx Cardiac Disorders: Yes - [place] 1988 Hx Congestive Heart Failure: No Hx Pacemaker: No Hx Hypertension: Yes Hx Thyroid Disease: No Hx Diabetes: No Hx Gastroesophageal Reflux: Yes Hx Renal Disease: No Hx Cancer: No Hx of HIV: No Hx Hepatitis C: No Hx MRSA: No - Vaccination History Hx Tetanus, Diphtheria Vaccination: Yes Hx Influenza Vaccination: No Hx Pneumococcal Vaccination: Yes - Social History Hx Tobacco Use: Yes Hx Chewing Tobacco Use: No Hx Alcohol Use: No Hx Substance Use: No Hx Substance Use Treatment: No Hx Depression: No Hx Physical Abuse: No Hx Emotional Abuse: No Hx Suspected Abuse: No - Female History Patient : No Family Medical History - Family History Mother Family History: No Known Living Status: Still Living Hx Family Hypertension: Yes Hx Family Stroke: Yes - dad Hx Cardiac Disease: Yes Hx Family Diabetes: Yes - parents Hx Family Cancer: Yes - Lung CA Physical Exam - Physical Exam General Appearance: Alert, Comfortable, No apparent distress Eye Exam: bilateral normal Ears, Nose, Throat: hearing grossly normal, normal ENT inspection, normal pharynx Neck: full range of motion, supple, normal inspection Respiratory: lungs clear, normal breath sounds, no respiratory distress, no accessory muscle use, other - anterior chest wall is uncomfortable to palpation. Cardiovascular/Chest: normal peripheral pulses, regular rate, rhythm, no edema, other - occasional PVCs on telemetry monitoring Peripheral Pulses: radial,right: 2+, radial,left: 2+, dorsalis pedis,right: 2+, dorsalis pedis,left: 2+ Gastrointestinal/Abdominal: non tender, soft Rectal Exam: deferred Back Exam: normal inspection, no CVA tenderness Extremity: normal range of motion, non-tender, normal inspection, no pedal edema , normal capillary refill Neurologic: reference test clerk II-XII nml as tested, alert, normal mood/affect, oriented x 3 Skin Exam: normal color Comments: Vital Signs - 24 hr 05/19/17 05/19/17 05/19/17 20:00 20:04 20:55 Temperature 99.2 F Pulse Rate [ 98 H 95 H 93 H left] Respiratory 18 18 18 Rate Blood Pressure 151/83 127/71 [left] O2 Sat by Pulse 94 L 94 L Oximetry 05/19/17 21:26 Temperature Pulse Rate [ 92 H left] Respiratory 16 Rate Blood Pressure 126/76 [left] O2 Sat by Pulse 94 L Oximetry Progress - Progress Progress: 05/19/17 21:49 the patient's a 57-year-old male presenting to the emergency room secondary to anterior chest pain with movement, coughing and taking a deep breath for the last 18 hours. This does appear to be much more of a costochondritis picture. Lab work, EKG and chest x-ray are reassuring. He does have some mild hypokalemia and was given a dose of potassium here. He needs to have this rechecked in a week or 2. The costochondritis may be currently being exacerbated by the increased diuretic dose. Uric acid level was normal however with dehydration gout is still a possibility. The patient did receive a dose of prednisone and will be placed on prednisone 20 mg daily for the next 3 days. Additionally he'll be written for Fioricet for as needed use for pain control. Ibuprofen 400 mg 3 times daily for the next 2 days can be taken with food as well for an anti-inflammatory effect. ER warnings were given for any significant worsening. He should follow up with his primary care doctor next week. - Results/Orders Results/Orders: 05/19/17 20:05 IV Care:Saline Lock per Protoc QSHIFT Telemetry .ONCE Sodium Chloride 0.9% (Flush) [Saline Flush Syringe] 10 ml IV PRN PRN EKG Stat Pulse Ox Stat Pulse Oximetry Assessment DAILY Laboratory Results - last 24 hr 05/19/17 05/19/17 05/19/17 20:05 20:09 20:10 WBC 10.4 RBC 4.94 Hgb 15.0 Hct 43.8 MCV 88.7 MCH 30.3 MCHC 34.2 RDW 13.6 Plt Count 214 MPV 7.4 Absolute Neuts (auto) 7.20 H Absolute Lymphs (auto) 1.80 Absolute Monos (auto) 1.00 H Absolute Eos (auto) 0.40 Absolute Basos (auto) 0.10 Neutrophils % 69.0 Lymphocytes % 17.3 L Monocytes % 9.7 H Eosinophils % 3.5 Basophils % 0.5 ESR 5 PT 11.8 INR 1.040 PTT (SP) 32.2 Sodium 134 L Potassium 3.3 L Chloride 95 L Carbon Dioxide 30 Anion Gap 12.3 BUN 17 Creatinine 1.18 BUN/Creatinine Ratio 14.4 Random Glucose 79 Serum Osmolality 268.7 L Uric Acid 6.7 Calcium 9.1 Magnesium 1.9 Total Bilirubin 0.3 Direct Bilirubin < 0.1 Indirect Bilirubin 0.2 AST 17 ALT 15 Alkaline Phosphatase 104 Creatine Kinase 136 CK-MB (CK-2) 2.6 CK-MB (CK-2) % Not Reportable Troponin I < 0.02 B-Natriuretic Peptide < 5.0 Serum Total Protein 7.2 Albumin 4.2 EKG shows mild sinus tachycardia at a rate of 105 bpm. Normal axis. No ST segment changes concerning for ischemia. Normal QT interval. Chest x-ray shows no acute pathology. This is compared with multiple previous. Departure - Departure Clinical Impression: Costochondritis, acute Disposition: Discharge to Home or Self Care Condition: Fair Departure Forms: ED Discharge - Pt. Copy, Patient Portal Self Enrollment Diet: regular diet Activity: increase activity as tolerated Referrals: Blanca Bains MD [Primary Care Provider] - 1-5 Days Prescriptions: Aafcnqmmtyjqc-Jgdc-Taacygdouj [Fioricet] 1 ea PO Q8H PRN #21 tab PRN Reason: Pain predniSONE [Prednisone] 20 mg PO DAILY #3 tab Home Medications: Ambulatory Orders Aripiprazole [Abilify] 30 mg PO BEDTIME 06/22/14 Trazodone HCl 100 mg PO BEDTIME 06/22/14 cloNAZepam [KlonoPIN] 0.5 mg PO BID 02/24/15 Lisinopril 10 mg PO DAILY 09/12/15 Ibuprofen [Goodsense Ibuprofen] 400 mg PO Q6H PRN #100 tab 02/16/16 Aspirin [Aspirin Adult Low Dose] 81 mg PO DAILY #120 tab 08/15/16 Nitroglycerin 0.4 mg (ER Disp) [Nitrostat] 0.4 mg SL Q5MIN PRN #30 tab 08/15/16 Hydrochlorothiazide 25 mg PO DAILY 03/20/17 Primidone 03/20/17 Eserbphzkevtw-Qtsm-Lzjrixxmxr [Fioricet] 1 ea PO Q8H PRN #21 tab 05/19/17 predniSONE [Prednisone] 20 mg PO DAILY #3 tab 05/19/17 Additional Instructions: the patient's a 57-year-old male presenting to the emergency room secondary to anterior chest pain with movement, coughing and taking a deep breath for the last 18 hours. This does appear to be much more of a costochondritis picture. Lab work, EKG and chest x-ray are reassuring. He does have some mild hypokalemia and was given a dose of potassium here. He needs to have this rechecked in a week or 2. The costochondritis may be currently being exacerbated by the increased diuretic dose. Uric acid level was normal however with dehydration gout is still a possibility. The patient did receive a dose of prednisone and will be placed on prednisone 20 mg daily for the next 3 days. Additionally he'll be written for Fioricet for as needed use for pain control. Ibuprofen 400 mg 3 times daily for the next 2 days can be taken with food as well for an anti-inflammatory effect. ER warnings were given for any significant worsening. He should follow up with his primary care doctor next week.
[2017-05-19 22:08] VITALS: BP 115/72; TEMP 97.2
== END 2017-05-19 22:08 | disposition home or self-care (01) ==
LOC: ER 19:55
DX: M94.0 Chondrocostal junction syndrome [Tietze] (principal); Z87.891 Personal history of nicotine dependence; I25.2 Old myocardial infarction; J44.9 Chronic obstructive pulmonary disease, unspecified; I10 Essential (primary) hypertension; Z79.82 Long term (current) use of aspirin; Z79.899 Other long term (current) drug therapy; Z88.6 Allergy status to analgesic agent
CPT/HCPCS: 36415; 71010; 80048; 80076; 82550; 82553; 83880; 84484; 84550; 85025; 85610; 85651; 85730; 93005; 94760; J1885; J7512

== ENCOUNTER → 2017-05-26 | Outpatient (CLI) | payer OTHER | END | disposition home or self-care (01) | LOC: LAB.O 12:27 | PROVIDERS: ATTEND Nurse Practitioner Family | DX: E87.6 Hypokalemia (principal) ==

== ENCOUNTER → 2017-07-11 | Outpatient (CLI) | payer OTHER ==
--- NOTE | 2017-07-11 16:24 | RAD ---
EXAM DESCRIPTION: Barium Swallow CLINICAL HISTORY: ESOPHAGEAL DYSPLASIA COMPARISON: None TECHNIQUE: Preliminary AP date night sitter radiograph. The patient swallowed barium pill with water. The patient then swallowed gas-producing granules, water, and heavy density barium under fluoroscopic visualization. The images were obtained with the patient upright and horizontal. 10 fluoroscopic cine loop images. 7 static fluoroscopic images. Total fluoroscopy time was 2.8 minutes. Dose: 144.4 mGy. FINDINGS: Patient swallowed the barium pill with water under fluoroscopic visualization. The pill could not pass into the stomach until barium was swallowed. Questionable diverticulum posterior hypopharynx. No definite penetration or aspiration. Question of ulcers at the base of the tongue to the right of midline. Primary peristaltic wave is incomplete secondary and tertiary contractions seen distally. No gastroesophageal obstruction or mass effect, but there is slightly delayed passage through the gastroesophageal sphincter. The patient rolling from prone to supine to prone, there is reflux almost to the proximal esophagus. No hiatal hernia. IMPRESSION: 1. Question of ulcers in the hypopharynx and the right tongue base. No laryngeal penetration or aspiration. If these findings are discordant with clinical findings, consider modified barium swallow examination under speech language pathologist supervision. 2. Decreased primary peristaltic wave distally with secondary and tertiary. Delayed passage through the gastroesophageal sphincter but no obstruction. 3. Marked gastroesophageal reflux to the level of the proximal esophagus. Electronically signed by: Alli Ferreira MD 07/11/2017 4:23 PM [facility]
== END | disposition home or self-care (01) ==
LOC: RAD 08:20
PROVIDERS: ATTEND Nurse Practitioner Family
DX: K22.8 Other specified diseases of esophagus (principal)

== ENCOUNTER 2017-07-27 13:03 | Emergency (ER) | payer OTHER ==
[2017-07-27 13:49] VITALS: BP 120/83; TEMP 99.7; O2SAT 92
--- NOTE | 2017-07-27 14:30 | ED.PDOC ---
History of Present Illness - General Chief Complaint: Respiratory Problem Stated Complaint: cough Time Seen by Provider: 07/27/17 13:46 Source: patient Exam Limitations: no limitations - History of Present Illness Initial Comments: the patient is a 57-year-old male presenting to the emergency room secondary to cough congestion and runny nose for approximately 18 hours. He does have a low-grade fever here today. He does have some mild body aches. He and his started having symptoms within a day of each other. He is not having any shortness of breath. His lungs are actually clear here. He does however have a history of COPD. He is oxygenating well and in no distress. Timing/Duration: 24 hours Severity: mild Improving Factors: nothing Worsening Factors: nothing Associated Symptoms: cough, fever/chills, loss of appetite, malaise Allergies/Adverse Reactions: Allergies Codeine Allergy (Verified 08/14/16 21:38) Meperidine [From Demerol HCl] Allergy (Verified 08/14/16 21:38) Home Medications: Ambulatory Orders Aripiprazole [Abilify] 30 mg PO BEDTIME 06/22/14 Trazodone HCl 100 mg PO BEDTIME 06/22/14 cloNAZepam [KlonoPIN] 0.5 mg PO BID 02/24/15 Lisinopril 10 mg PO DAILY 09/12/15 Ibuprofen [Goodsense Ibuprofen] 400 mg PO Q6H PRN #100 tab 02/16/16 Aspirin [Aspirin Adult Low Dose] 81 mg PO DAILY #120 tab 08/15/16 Nitroglycerin 0.4 mg (ER Disp) [Nitrostat] 0.4 mg SL Q5MIN PRN #30 tab 08/15/16 Hydrochlorothiazide 25 mg PO DAILY 03/20/17 Primidone 03/20/17 Zpggnkzhnauyi-Nptx-Uywtbrwurf [Fioricet] 1 ea PO Q8H PRN #21 tab 05/19/17 predniSONE [Prednisone] 20 mg PO DAILY #3 tab 05/19/17 Azithromycin 250 mg PO DAILY #5 tab 07/27/17 Review of Systems - Review of Systems Constitutional: States: chills, fever, malaise EENTM: States: nose congestion Respiratory: States: cough Cardiology: States: no symptoms reported Gastrointestinal/Abdominal: States: no symptoms reported Genitourinary: States: no symptoms reported Musculoskeletal: States: no symptoms reported Skin: States: no symptoms reported Neurological: States: headache - mild All other Systems: No Change from Baseline Past Medical History (General) - Patient Medical History Hx Seizures: No Hx Stroke: No Hx Dementia: No Hx Asthma: No Hx of COPD: Yes Hx Cardiac Disorders: Yes - [place] 1988 Hx Congestive Heart Failure: No Hx Pacemaker: No Hx Hypertension: Yes Hx Thyroid Disease: No Hx Diabetes: No Hx Gastroesophageal Reflux: Yes Hx Renal Disease: No Hx Cancer: No Hx of HIV: No Hx Hepatitis C: No Hx MRSA: No Surgical History: appendectomy - Vaccination History Hx Tetanus, Diphtheria Vaccination: Yes Hx Influenza Vaccination: No Hx Pneumococcal Vaccination: Yes - Social History Hx Tobacco Use: Yes Hx Chewing Tobacco Use: No Hx Alcohol Use: No Hx Substance Use: No Hx Substance Use Treatment: No Hx Depression: No Hx Physical Abuse: No Hx Emotional Abuse: No Hx Suspected Abuse: No - Female History Patient : No Family Medical History - Family History Mother Family History: No Known Living Status: Still Living Hx Family Hypertension: Yes Hx Family Stroke: Yes - dad Hx Cardiac Disease: Yes Hx Family Diabetes: Yes - parents Hx Family Cancer: Yes - Lung CA Physical Exam - Physical Exam General Appearance: Alert, Comfortable, No apparent distress Eye Exam: bilateral normal Ears, Nose, Throat: hearing grossly normal, normal pharynx, nasal congestion Neck: full range of motion, supple, normal inspection Respiratory: chest non-tender, lungs clear, normal breath sounds, no respiratory distress, no accessory muscle use Cardiovascular/Chest: normal peripheral pulses, regular rate, rhythm, no edema Peripheral Pulses: radial,right: 2+, radial,left: 2+, dorsalis pedis,right: 2+, dorsalis pedis,left: 2+ Gastrointestinal/Abdominal: non tender, soft, no organomegaly Rectal Exam: deferred Back Exam: normal inspection, no CVA tenderness, no vertebral tenderness Extremity: non-tender, normal inspection, no pedal edema, normal capillary refill Neurologic: registered nurse cardiac II-XII nml as tested, alert, normal mood/affect, oriented x 3 Skin Exam: normal color Comments: Vital Signs - 24 hr 07/27/17 13:30 Temperature 99.7 F H Pulse Rate [ 101 H left brachial] Respiratory 20 Rate Blood Pressure 120/83 [right brachial ] O2 Sat by Pulse 92 L Oximetry Progress - Progress Progress: 07/27/17 14:32 the patient is a 57-year-old male presenting to the emergency room with what appears to be an upper respiratory tract infection. While this is most likely a viral infection the patient is going to be placed on bacterial prophylaxis with azithromycin given his COPD history. ER warnings were given for any significant worsening. He should expect symptoms to last another 5-7 days. Motrin can be used with food to help control any fever or body aches. He needs to keep himself well hydrated. He needs to follow-up with his primary care doctor towards the end of this week or early next week. He has tested negative for flu here today. Departure - Departure Clinical Impression: Upper respiratory infection Qualifiers: URI type: unspecified viral URI Qualified Code(s): J06.9 - Acute upper respiratory infection, unspecified; B97.89 - Other viral agents as the cause of diseases classified elsewhere Disposition: Discharge to Home or Self Care Condition: Fair Departure Forms: ED Discharge - Pt. Copy, Patient Portal Self Enrollment Instructions: DI for Viral Upper Respiratory Infection -- Adult Diet: regular diet Activity: increase activity as tolerated Referrals: Blanca Bains MD [Primary Care Provider] - 1-2 Weeks Prescriptions: Azithromycin 250 mg PO DAILY #5 tab Home Medications: Ambulatory Orders Aripiprazole [Abilify] 30 mg PO BEDTIME 06/22/14 Trazodone HCl 100 mg PO BEDTIME 06/22/14 cloNAZepam [KlonoPIN] 0.5 mg PO BID 02/24/15 Lisinopril 10 mg PO DAILY 09/12/15 Ibuprofen [Goodsense Ibuprofen] 400 mg PO Q6H PRN #100 tab 02/16/16 Aspirin [Aspirin Adult Low Dose] 81 mg PO DAILY #120 tab 08/15/16 Nitroglycerin 0.4 mg (ER Disp) [Nitrostat] 0.4 mg SL Q5MIN PRN #30 tab 08/15/16 Hydrochlorothiazide 25 mg PO DAILY 03/20/17 Primidone 03/20/17 Qkzvjnookjpye-Amhg-Lmtfnxeloq [Fioricet] 1 ea PO Q8H PRN #21 tab 05/19/17 predniSONE [Prednisone] 20 mg PO DAILY #3 tab 05/19/17 Azithromycin 250 mg PO DAILY #5 tab 07/27/17 Additional Instructions: the patient is a 57-year-old male presenting to the emergency room with what appears to be an upper respiratory tract infection. While this is most likely a viral infection the patient is going to be placed on bacterial prophylaxis with azithromycin given his COPD history. ER warnings were given for any significant worsening. He should expect symptoms to last another 5-7 days. Motrin can be used with food to help control any fever or body aches. He needs to keep himself well hydrated. He needs to follow-up with his primary care doctor towards the end of this week or early next week. He has tested negative for flu here today.
== END 2017-07-27 14:48 | disposition home or self-care (01) ==
LOC: ER 13:03
DX: J06.9 Acute upper respiratory infection, unspecified (principal); B97.89 Other viral agents as the cause of diseases classified elsewhere; J44.9 Chronic obstructive pulmonary disease, unspecified; I25.2 Old myocardial infarction; I10 Essential (primary) hypertension; Z87.891 Personal history of nicotine dependence

== ENCOUNTER → 2017-08-03 | Outpatient (CLI) | payer OTHER | LOC: LAB.O 08:14 | PROVIDERS: ATTEND Psychiatry & Neurology Psychiatry | DX: Z79.899 Other long term (current) drug therapy (principal) ==

== ENCOUNTER 2017-08-16 05:47 | Emergency (ER) | payer OTHER ==
[2017-08-16 06:03] VITALS: BP 137/83; TEMP 98.9; O2SAT 96
--- NOTE | 2017-08-16 06:39 | ED.PDOC ---
History of Present Illness - General Chief Complaint: General Stated Complaint: right side rib pain Time Seen by Provider: 08/16/17 06:37 Source: patient - History of Present Illness Timing/Duration: other - yesterday was lifting furniture when R ribs began hurting Improving Factors: rest Worsening Factors: movement Associated Symptoms: chest pain Allergies/Adverse Reactions: Allergies Codeine Allergy (Verified 08/16/17 06:03) Meperidine [From Demerol HCl] Allergy (Verified 08/16/17 06:03) Home Medications: Ambulatory Orders Aripiprazole [Abilify] 30 mg PO BEDTIME 06/22/14 Trazodone HCl 100 mg PO BEDTIME 06/22/14 cloNAZepam [KlonoPIN] 0.5 mg PO BID 02/24/15 Lisinopril 10 mg PO DAILY 09/12/15 Ibuprofen [Goodsense Ibuprofen] 400 mg PO Q6H PRN #100 tab 02/16/16 Aspirin [Aspirin Adult Low Dose] 81 mg PO DAILY #120 tab 08/15/16 Nitroglycerin 0.4 mg (ER Disp) [Nitrostat] 0.4 mg SL Q5MIN PRN #30 tab 08/15/16 Hydrochlorothiazide 25 mg PO DAILY 03/20/17 Primidone 03/20/17 Trjkrjwtdkkjz-Iewd-Hgndkrlcqb [Fioricet] 1 ea PO Q8H PRN #21 tab 05/19/17 predniSONE [Prednisone] 20 mg PO DAILY #3 tab 05/19/17 Azithromycin 250 mg PO DAILY #5 tab 07/27/17 Cyclobenzaprine Tab (ER Disp) [Flexeril Tab (ER Dispense)] 10 mg PO TID PRN #15 tab 08/16/17 Tramadol HCl 50 mg PO Q4HR PRN #20 tab 08/16/17 Review of Systems - Review of Systems Constitutional: Denies: chills, fever EENTM: Denies: no symptoms reported Respiratory: Denies: cough, short of breath Cardiology: States: chest pain. Denies: palpitations, syncope Gastrointestinal/Abdominal: Denies: abdominal pain, nausea Genitourinary: Denies: no symptoms reported Musculoskeletal: Denies: joint pain, muscle pain Skin: Denies: no symptoms reported Neurological: Denies: no symptoms reported Endocrine: Denies: no symptoms reported Hematologic/Lymphatic: Denies: no symptoms reported Past Medical History (General) - Patient Medical History Hx Seizures: No Hx Stroke: No Hx Dementia: No Hx Asthma: No Hx of COPD: Yes Hx Cardiac Disorders: Yes - [place] 1988 Hx Congestive Heart Failure: No Hx Pacemaker: No Hx Hypertension: Yes Hx Thyroid Disease: No Hx Diabetes: No Hx Gastroesophageal Reflux: Yes Hx Renal Disease: No Hx Cancer: No Hx of HIV: No Hx Hepatitis C: No Hx MRSA: No Surgical History: appendectomy - Vaccination History Hx Tetanus, Diphtheria Vaccination: - unknown Hx Influenza Vaccination: Yes Hx Pneumococcal Vaccination: Yes - Social History Hx Tobacco Use: Yes Hx Chewing Tobacco Use: No Hx Alcohol Use: No Hx Substance Use: No Hx Substance Use Treatment: No Hx Depression: No Hx Physical Abuse: No Hx Emotional Abuse: No Hx Suspected Abuse: No - Female History Patient : No Family Medical History - Family History Mother Family History: No Known Living Status: Still Living Hx Family Hypertension: Yes Hx Family Stroke: Yes - dad Hx Cardiac Disease: Yes Hx Family Diabetes: Yes - parents Hx Family Cancer: Yes - Lung CA Physical Exam - Physical Exam General Appearance: Alert, Anxious, No apparent distress Eye Exam: bilateral normal Ears, Nose, Throat: hearing grossly normal Neck: non-tender, normal inspection Respiratory: lungs clear, normal breath sounds, no respiratory distress, other - diffuse tenderness over lateral ribs distally, no discoloration or crepitus Cardiovascular/Chest: normal peripheral pulses, regular rate, rhythm, no edema Gastrointestinal/Abdominal: normal bowel sounds, soft Neurologic: alert, normal mood/affect, oriented x 3 Skin Exam: normal color, warm/dry Progress - EKG/XRAY/CT XRAY: R ribs Xray Comments: no fx's Departure - Departure Clinical Impression: Chest wall injury Qualifiers: Encounter type: initial encounter Qualified Code(s): S29.9XXA - Unspecified injury of thorax, initial encounter Disposition: Discharge to Home or Self Care Departure Forms: ED Discharge - Pt. Copy, Patient Portal Self Enrollment Referrals: Blanca Bains MD [Primary Care Provider] - 1-2 Weeks Prescriptions: Tramadol HCl 50 mg PO Q4HR PRN #20 tab PRN Reason: Pain Cyclobenzaprine Tab (ER Disp) [Flexeril Tab (ER Dispense)] 10 mg PO TID PRN #15 tab PRN Reason: Muscle Spasms Home Medications: Ambulatory Orders Aripiprazole [Abilify] 30 mg PO BEDTIME 06/22/14 Trazodone HCl 100 mg PO BEDTIME 06/22/14 cloNAZepam [KlonoPIN] 0.5 mg PO BID 02/24/15 Lisinopril 10 mg PO DAILY 09/12/15 Ibuprofen [Goodsense Ibuprofen] 400 mg PO Q6H PRN #100 tab 02/16/16 Aspirin [Aspirin Adult Low Dose] 81 mg PO DAILY #120 tab 08/15/16 Nitroglycerin 0.4 mg (ER Disp) [Nitrostat] 0.4 mg SL Q5MIN PRN #30 tab 08/15/16 Hydrochlorothiazide 25 mg PO DAILY 03/20/17 Primidone 03/20/17 Mncqcqwqyaook-Yxrf-Zwtkpspslf [Fioricet] 1 ea PO Q8H PRN #21 tab 05/19/17 predniSONE [Prednisone] 20 mg PO DAILY #3 tab 05/19/17 Azithromycin 250 mg PO DAILY #5 tab 07/27/17 Cyclobenzaprine Tab (ER Disp) [Flexeril Tab (ER Dispense)] 10 mg PO TID PRN #15 tab 08/16/17 Tramadol HCl 50 mg PO Q4HR PRN #20 tab 08/16/17
--- NOTE | 2017-08-16 06:55 | RAD ---
EXAM DESCRIPTION: Ribs,Right 3 Views CLINICAL HISTORY: rib pain after lifting furniture COMPARISON: None. FINDINGS: 3 views of the right ribs. No rib fractures identified. No pneumothorax identified the visualized lungs. Possible right pleural effusion. IMPRESSION: No right rib fracture identified. Electronically signed by: Keo Chilel 08/16/2017 6:54 AM FITNESS SERVICES MANAGER
== END 2017-08-16 07:02 | disposition home or self-care (01) ==
LOC: ER 05:47
DX: S29.9XXA Unspecified injury of thorax, initial encounter (principal); I25.2 Old myocardial infarction; J44.9 Chronic obstructive pulmonary disease, unspecified; I10 Essential (primary) hypertension; X50.0XXA Overexertion from strenuous movement or load, initial encounter; Y92.9 Unspecified place or not applicable

== ENCOUNTER 2017-09-10 18:51 | Emergency (ER) | payer OTHER ==
[2017-09-10 19:12] VITALS: TEMP 98; O2SAT 95
--- NOTE | 2017-09-10 20:05 | RAD ---
Examination: XR KNEE 1-2 VIEWS dated 09/10/2017 7:12 PM CDT History: rle pain Comparison: None Technique: Three views of the right knee FINDINGS: Mild degenerative changes of the right knee without acute fracture or dislocation. No significant joint effusion. IMPRESSION: Mild degenerative changes of the right knee. Electronically signed by: Jorge Archuleta MD 09/10/2017 8:04 PM CDT
[2017-09-10] MEDS ORDERED: predniSONE 20 MG TAB PO ONE (20:12)
--- NOTE | 2017-09-10 20:19 | ED.PDOC ---
History of Present Illness - General Chief Complaint: General Stated Complaint: RLE swelling and pain Time Seen by Provider: 09/10/17 19:11 Source: patient Exam Limitations: no limitations - History of Present Illness Initial Comments: the patient is a 57-year-old male presenting to the emergency room secondary to some bilateral lower extremity discomfort with the right being worse than the left for the last 3 months. He reports a little bit of swelling. The patient notably does have psoriasis and has no known history of psoriasis. He has multiple lesions on the dorsum of his feet as well as on the inner aspect of his right calf. He does have some diffuse discomfort palpation over bilateral lower extremities. No obvious deformity otherwise. Sensation appears to be at his baseline. No lacerations. No evidence of sepsis. No history of any DVT and no palpable cords. Pain is somewhat in the right placed posteriorly for that to be on thedifferential. Timing/Duration: unsure Severity: mild Improving Factors: nothing Worsening Factors: movement Associated Symptoms: denies symptoms Allergies/Adverse Reactions: Allergies Codeine Allergy (Verified 09/10/17 19:12) Meperidine [From Demerol HCl] Allergy (Verified 09/10/17 19:12) Home Medications: Ambulatory Orders Aripiprazole [Abilify] 30 mg PO BEDTIME 06/22/14 Trazodone HCl 100 mg PO BEDTIME 06/22/14 cloNAZepam [KlonoPIN] 0.5 mg PO BID 02/24/15 Lisinopril 10 mg PO DAILY 09/12/15 Ibuprofen [Goodsense Ibuprofen] 400 mg PO Q6H PRN #100 tab 02/16/16 Aspirin [Aspirin Adult Low Dose] 81 mg PO DAILY #120 tab 08/15/16 Nitroglycerin 0.4 mg (ER Disp) [Nitrostat] 0.4 mg SL Q5MIN PRN #30 tab 08/15/16 Hydrochlorothiazide 25 mg PO DAILY 03/20/17 Primidone 03/20/17 Egudhsoygoyll-Tcna-Virvrqnjwc [Fioricet] 1 ea PO Q8H PRN #21 tab 05/19/17 predniSONE [Prednisone] 20 mg PO DAILY #3 tab 05/19/17 Azithromycin 250 mg PO DAILY #5 tab 07/27/17 Cyclobenzaprine Tab (ER Disp) [Flexeril Tab (ER Dispense)] 10 mg PO TID PRN #15 tab 08/16/17 Tramadol HCl 50 mg PO Q4HR PRN #20 tab 08/16/17 predniSONE [Prednisone] 20 mg PO DAILY #7 tab 09/10/17 Review of Systems - Review of Systems Constitutional: States: no symptoms reported EENTM: States: no symptoms reported Respiratory: States: no symptoms reported Cardiology: States: no symptoms reported Gastrointestinal/Abdominal: States: no symptoms reported Genitourinary: States: no symptoms reported Musculoskeletal: States: see HPI Skin: States: no symptoms reported Neurological: States: no symptoms reported Endocrine: States: no symptoms reported All other Systems: No Change from Baseline Past Medical History (General) - Patient Medical History Hx Seizures: No Hx Stroke: No Hx Dementia: No Hx Asthma: No Hx of COPD: Yes Hx Cardiac Disorders: Yes - [place] 1988 Hx Congestive Heart Failure: No Hx Pacemaker: No Hx Hypertension: Yes Hx Thyroid Disease: No Hx Diabetes: No Hx Gastroesophageal Reflux: Yes Hx Renal Disease: No Hx Cancer: No Hx of HIV: No Hx Hepatitis C: No Hx MRSA: No Surgical History: appendectomy, other - Vaccination History Hx Tetanus, Diphtheria Vaccination: - unknown Hx Influenza Vaccination: Yes Hx Pneumococcal Vaccination: Yes - Social History Hx Tobacco Use: Yes Hx Chewing Tobacco Use: No Hx Alcohol Use: No Hx Substance Use: No Hx Substance Use Treatment: No Hx Depression: No Hx Physical Abuse: No Hx Emotional Abuse: No Hx Suspected Abuse: No - Female History Patient is a Female of Child Bearing Age (10 -59 yrs old): No Patient : No Family Medical History - Family History Mother Family History: No Known Living Status: Still Living Hx Family Hypertension: Yes Hx Family Stroke: Yes - dad Hx Cardiac Disease: Yes Hx Family Diabetes: Yes - parents Hx Family Cancer: Yes - Lung CA Physical Exam - Physical Exam General Appearance: Alert, Comfortable, No apparent distress Eye Exam: bilateral normal Ears, Nose, Throat: normal ENT inspection, normal pharynx Neck: full range of motion, supple Respiratory: lungs clear, normal breath sounds, no respiratory distress, no accessory muscle use Cardiovascular/Chest: normal peripheral pulses, no edema, other - regular rate Peripheral Pulses: radial,right: 2+, radial,left: 2+, dorsalis pedis,right: 2+, dorsalis pedis,left: 2+ Gastrointestinal/Abdominal: non tender, soft Rectal Exam: deferred Back Exam: no CVA tenderness, no vertebral tenderness Extremity: normal range of motion, no pedal edema, normal capillary refill Neurologic: research study assistant II-XII nml as tested, alert, normal mood/affect, oriented x 3 Skin Exam: rash - he does have areas that appear to be consistent with psoriasis on the dorsum of his feet as well as a couple of areas on hisdistal legs bilaterally. Comments: Vital Signs - 24 hr 09/10/17 19:00 Temperature 98.0 F Pulse Rate [ 92 H pulse ox] Respiratory 18 Rate Blood Pressure 130/77 [Right Arm] O2 Sat by Pulse 95 Oximetry Progress - Progress Progress: 09/10/17 20:21 The patient's 57-year-old male presenting with right greater than left lower extremity pain for the last several months. He does appear to have some psoriatic lesions on his bilateral lower extremities and may be having some associated arthritic type changes. The patient is going to be placed on prednisone 20 mg daily for the next 7 days. He does need follow-up with his primary care doctor to make sure that the pain is improving and that his psoriatic lesions are improving. Additionally topical hydrocortisone can be applied 2-3 times daily to these lesions. If they are worsening instead of improving over the next 4-5 days then this treatment needs to be discontinued. Ringworms can present similarly however I do believe these are psoriatic lesions rather than ringworms. If the above treatment fails to improve the pain then additional workup along the line of neurogenic versus vascular claudication may be appropriate. lab work and x-ray are reassuring today here including a d-dimer. He does appear to be perfusing well. ER warnings are given for any significant worsening. He needs to follow-up with his primary care doctor later this coming week. - Results/Orders Results/Orders: x-ray of the right knee shows mild DJD. No fracture or dislocation. 09/10/17 19:35 CARDIAC ENZYME GROUP Stat COMPLETE METABOLIC PROFILE Stat MAGNESIUM Stat 09/10/17 20:21 Fluconazole [Diflucan Tab] 150 mg PO ONCE ONE Laboratory Results - last 24 hr 09/10/17 09/10/17 09/10/17 19:35 19:35 19:35 WBC 8.2 RBC 4.53 L Hgb 13.9 L Hct 40.6 L MCV 89.5 MCH 30.6 MCHC 34.3 RDW 14.6 H Plt Count 194 MPV 7.0 L Absolute Neuts (auto) 5.20 Absolute Lymphs (auto) 1.90 Absolute Monos (auto) 0.70 Absolute Eos (auto) 0.30 Absolute Basos (auto) 0.00 Neutrophils % 63.8 Lymphocytes % 23.3 Monocytes % 8.1 Eosinophils % 4.3 Basophils % 0.5 D-Dimer, Quantitative < 230 Sodium 143 Potassium 3.6 Chloride 107 Carbon Dioxide 28 Anion Gap 11.6 L BUN 11 Creatinine 0.80 BUN/Creatinine Ratio 13.8 Random Glucose 97 Serum Osmolality 284.3 Calcium 8.8 Magnesium 1.9 Total Bilirubin 0.7 AST 16 ALT 15 Alkaline Phosphatase 90 Creatine Kinase 95 CK-MB (CK-2) 2.6 Troponin I < 0.02 Serum Total Protein 6.9 Albumin 3.7 Globulin 3.2 Albumin/Globulin Ratio 1.2 Departure - Departure Clinical Impression: Psoriasis Disposition: Discharge to Home or Self Care Condition: Fair Departure Forms: ED Discharge - Pt. Copy, Patient Portal Self Enrollment Instructions: Psoriasis, DI for Psoriasis Diet: regular diet Activity: increase activity as tolerated Referrals: Blanca Bains MD [Primary Care Provider] - 1-2 Weeks Prescriptions: predniSONE [Prednisone] 20 mg PO DAILY #7 tab Home Medications: Ambulatory Orders Aripiprazole [Abilify] 30 mg PO BEDTIME 06/22/14 Trazodone HCl 100 mg PO BEDTIME 06/22/14 cloNAZepam [KlonoPIN] 0.5 mg PO BID 02/24/15 Lisinopril 10 mg PO DAILY 09/12/15 Ibuprofen [Goodsense Ibuprofen] 400 mg PO Q6H PRN #100 tab 02/16/16 Aspirin [Aspirin Adult Low Dose] 81 mg PO DAILY #120 tab 08/15/16 Nitroglycerin 0.4 mg (ER Disp) [Nitrostat] 0.4 mg SL Q5MIN PRN #30 tab 08/15/16 Hydrochlorothiazide 25 mg PO DAILY 03/20/17 Primidone 03/20/17 Esrhiflzdvbsf-Kcnu-Pvwnfjqwjr [Fioricet] 1 ea PO Q8H PRN #21 tab 05/19/17 predniSONE [Prednisone] 20 mg PO DAILY #3 tab 05/19/17 Azithromycin 250 mg PO DAILY #5 tab 07/27/17 Cyclobenzaprine Tab (ER Disp) [Flexeril Tab (ER Dispense)] 10 mg PO TID PRN #15 tab 08/16/17 Tramadol HCl 50 mg PO Q4HR PRN #20 tab 08/16/17 predniSONE [Prednisone] 20 mg PO DAILY #7 tab 09/10/17 Additional Instructions: The patient's 57-year-old male presenting with right greater than left lower extremity pain for the last several months. He does appear to have some psoriatic lesions on his bilateral lower extremities and may be having some associated arthritic type changes. The patient is going to be placed on prednisone 20 mg daily for the next 7 days. He does need follow-up with his primary care doctor to make sure that the pain is improving and that his psoriatic lesions are improving. Additionally topical hydrocortisone can be applied 2-3 times daily to these lesions. If they are worsening instead of improving over the next 4-5 days then this treatment needs to be discontinued. Ringworms can present similarly however I do believe these are psoriatic lesions rather than ringworms. If the above treatment fails to improve the pain then additional workup along the line of neurogenic versus vascular claudication may be appropriate. lab work and x-ray are reassuring today here including a d-dimer. He does appear to be perfusing well. ER warnings are given for any significant worsening. He needs to follow-up with his primary care doctor later this coming week. if the patient does improve with this treatment then follow up with his primary care doctor may warrant an evaluation for autoimmune diseases.
[2017-09-10] MEDS ORDERED: FLUCONAZOLE 100 MG TAB PO ONE (20:21)
[2017-09-10 21:07] VITALS: BP 127/57
== END 2017-09-10 20:35 | disposition home or self-care (01) ==
LOC: ER 18:51
DX: L40.9 Psoriasis, unspecified (principal); M79.662 Pain in left lower leg; M79.661 Pain in right lower leg; I25.2 Old myocardial infarction; J44.9 Chronic obstructive pulmonary disease, unspecified; I10 Essential (primary) hypertension; Z79.82 Long term (current) use of aspirin; Z87.891 Personal history of nicotine dependence
CPT/HCPCS: 36415; 73560; 80053; 82550; 82553; 83735; 84484; 85025; 85379; J7512

== ENCOUNTER 2017-10-15 16:50 | Emergency (ER) | payer OTHER ==
--- NOTE | 2017-10-15 19:06 | ED.PDOC ---
History of Present Illness - General Chief Complaint: Cardiovascular Problem Stated Complaint: bilateral leg pain Time Seen by Provider: 10/15/17 19:06 Source: patient Exam Limitations: no limitations - History of Present Illness Initial Comments: René Mark 57 y/o male stated that he had SOB and leg swelling on and off for several years and for the last 3 days had some exacerbation of his leg pain both.Had cardiac cath last year done by product ambassador Dr. Bravo and was told no coronary lesions.Stated had [place] 1988 while he was in service in 1988.Denies exertional chest pains ,dyspnea,or orthopnea.Also stated has copd Timing/Duration: other - see hpi Severity: moderate Improving Factors: nothing Worsening Factors: nothing Associated Symptoms: other - see hpi Allergies/Adverse Reactions: Allergies Codeine Allergy (Verified 09/10/17 19:12) Meperidine [From Demerol HCl] Allergy (Verified 09/10/17 19:12) Home Medications: Ambulatory Orders Aripiprazole [Abilify] 30 mg PO BEDTIME 06/22/14 Trazodone HCl 100 mg PO BEDTIME 06/22/14 cloNAZepam [KlonoPIN] 0.5 mg PO BID 02/24/15 Lisinopril 10 mg PO DAILY 09/12/15 Ibuprofen [Goodsense Ibuprofen] 400 mg PO Q6H PRN #100 tab 02/16/16 Aspirin [Aspirin Adult Low Dose] 81 mg PO DAILY #120 tab 08/15/16 Nitroglycerin 0.4 mg (ER Disp) [Nitrostat] 0.4 mg SL Q5MIN PRN #30 tab 08/15/16 Hydrochlorothiazide 25 mg PO DAILY 03/20/17 Primidone 03/20/17 Hdfbdsifvkhjk-Qmsa-Zsiwhrxvof [Fioricet] 1 ea PO Q8H PRN #21 tab 05/19/17 predniSONE [Prednisone] 20 mg PO DAILY #3 tab 05/19/17 Azithromycin 250 mg PO DAILY #5 tab 07/27/17 Cyclobenzaprine Tab (ER Disp) [Flexeril Tab (ER Dispense)] 10 mg PO TID PRN #15 tab 08/16/17 Tramadol HCl 50 mg PO Q4HR PRN #20 tab 08/16/17 predniSONE [Prednisone] 20 mg PO DAILY #7 tab 09/10/17 Doxycycline Hyclate 100 mg PO BID 10 Days #20 tab 04/21/18 Tramadol HCl 50 mg PO TID PRN #20 tab 10/15/17 Review of Systems - Review of Systems Constitutional: States: no symptoms reported EENTM: States: no symptoms reported Respiratory: States: see HPI Cardiology: States: see HPI Gastrointestinal/Abdominal: States: no symptoms reported Genitourinary: States: no symptoms reported Musculoskeletal: States: no symptoms reported Skin: States: no symptoms reported Neurological: States: no symptoms reported All other Systems: Reviewed and Negative, No Change from Baseline Past Medical History (General) - Patient Medical History Hx Seizures: No Hx Stroke: No Hx Dementia: No Hx Asthma: No Hx of COPD: Yes Hx Cardiac Disorders: Yes - [place] 1988 Hx Congestive Heart Failure: No Hx Pacemaker: No Hx Hypertension: Yes Hx Thyroid Disease: No Hx Diabetes: No Hx Gastroesophageal Reflux: Yes Hx Renal Disease: No Hx Cancer: No Hx of HIV: No Hx Hepatitis C: No Hx MRSA: No Surgical History: appendectomy - Vaccination History Hx Tetanus, Diphtheria Vaccination: - unknown Hx Influenza Vaccination: Yes Hx Pneumococcal Vaccination: Yes - Social History Hx Tobacco Use: Yes Hx Chewing Tobacco Use: No Hx Alcohol Use: No Hx Substance Use: No Hx Substance Use Treatment: No Hx Depression: No Hx Physical Abuse: No Hx Emotional Abuse: No Hx Suspected Abuse: No - Female History Patient : No Family Medical History - Family History Mother Family History: No Known Living Status: Still Living Hx Family Hypertension: Yes Hx Family Stroke: Yes - dad Hx Cardiac Disease: Yes Hx Family Diabetes: Yes - parents Hx Family Cancer: Yes - Lung CA Physical Exam - Physical Exam General Appearance: Alert, Comfortable, No apparent distress Eye Exam: bilateral normal Ears, Nose, Throat: hearing grossly normal, normal ENT inspection Neck: non-tender, full range of motion, supple Respiratory: chest non-tender, no respiratory distress, no accessory muscle use , wheezing - mild Cardiovascular/Chest: normal peripheral pulses, regular rate, rhythm, no murmur Peripheral Pulses: radial,right: 2+, radial,left: 2+, dorsalis pedis,right: 2+, dorsalis pedis,left: 2+ Gastrointestinal/Abdominal: non tender, soft, no organomegaly Back Exam: no CVA tenderness, no vertebral tenderness Extremity: no pedal edema, no calf tenderness Neurologic: alert, oriented x 3 Skin Exam: normal color, warm/dry Progress - Progress Progress: 10/15/17 19:22 Vital Signs - 24 hr 10/15/17 10/15/17 17:20 18:20 Temperature 98.4 F Pulse Rate [ 90 84 right brachial] Respiratory 16 18 Rate Blood Pressure 112/67 105/80 [right brachial ] O2 Sat by Pulse 92 L 96 Oximetry - Results/Orders Results/Orders: 10/15/17 19:23 IV Care:Saline Lock per Protoc QSHIFT 10/15/17 19:30 EKG STAT 10/16/17 09:00 [facility] Daily Laboratory Results - last 24 hr 10/15/17 19:35 WBC 8.5 RBC 4.68 L Hgb 14.3 Hct 41.7 L MCV 89.1 MCH 30.5 MCHC 34.2 RDW 14.5 Plt Count 197 MPV 6.8 L Absolute Neuts (auto) 5.60 Absolute Lymphs (auto) 1.90 Absolute Monos (auto) 0.60 Absolute Eos (auto) 0.30 Absolute Basos (auto) 0.00 Neutrophils % 66.2 Lymphocytes % 22.7 Monocytes % 7.6 Eosinophils % 3.3 Basophils % 0.2 PT 11.9 INR 1.030 PTT (SP) 33.7 Sodium 140 Potassium 3.8 Chloride 104 Carbon Dioxide 30 Anion Gap 9.8 L BUN 17 Creatinine 1.10 BUN/Creatinine Ratio 15.5 Random Glucose 93 Serum Osmolality 280.6 Uric Acid 5.9 Calcium 8.7 Magnesium 1.9 Total Bilirubin 0.4 Direct Bilirubin < 0.1 Indirect Bilirubin 0.3 AST 14 ALT 16 Alkaline Phosphatase 99 Creatine Kinase 112 CK-MB (CK-2) 3.0 CK-MB (CK-2) % Not Reportable Troponin I < 0.02 B-Natriuretic Peptide 11.6 Serum Total Protein 6.9 Albumin 3.9 - EKG/XRAY/CT EKG: Sinus, nonspecific ST T wave Chg Comments: HR-83 XRAY: chest - patchy infiltrates Departure - Departure Clinical Impression: Pain in both lower extremities Pneumonia Qualifiers: Pneumonia type: due to unspecified organism Laterality: right Lung location: lower lobe of lung Qualified Code(s): J18.1 - Lobar pneumonia, unspecified organism Time of Disposition: 20:52 Disposition: Discharge to Home or Self Care Condition: Fair Departure Forms: ED Discharge - Pt. Copy, Patient Portal Self Enrollment Referrals: Blanca Bains MD [Primary Care Provider] - 1-2 Weeks Prescriptions: Doxycycline Hyclate 100 mg PO BID 10 Days #20 tab Tramadol HCl 50 mg PO TID PRN #20 tab PRN Reason: Pain Home Medications: Ambulatory Orders Aripiprazole [Abilify] 30 mg PO BEDTIME 06/22/14 Trazodone HCl 100 mg PO BEDTIME 06/22/14 cloNAZepam [KlonoPIN] 0.5 mg PO BID 02/24/15 Lisinopril 10 mg PO DAILY 09/12/15 Ibuprofen [Goodsense Ibuprofen] 400 mg PO Q6H PRN #100 tab 02/16/16 Aspirin [Aspirin Adult Low Dose] 81 mg PO DAILY #120 tab 08/15/16 Nitroglycerin 0.4 mg (ER Disp) [Nitrostat] 0.4 mg SL Q5MIN PRN #30 tab 08/15/16 Hydrochlorothiazide 25 mg PO DAILY 03/20/17 Primidone 03/20/17 Cgbisglgenthg-Kixx-Ewkpoalgds [Fioricet] 1 ea PO Q8H PRN #21 tab 05/19/17 predniSONE [Prednisone] 20 mg PO DAILY #3 tab 05/19/17 Azithromycin 250 mg PO DAILY #5 tab 07/27/17 Cyclobenzaprine Tab (ER Disp) [Flexeril Tab (ER Dispense)] 10 mg PO TID PRN #15 tab 08/16/17 Tramadol HCl 50 mg PO Q4HR PRN #20 tab 08/16/17 predniSONE [Prednisone] 20 mg PO DAILY #7 tab 09/10/17 Doxycycline Hyclate 100 mg PO BID 10 Days #20 tab 10/15/17 Tramadol HCl 50 mg PO TID PRN #20 tab 10/15/17 Additional Instructions: Follow up with primary Md 17 October 2017;Return to ER as needed
[2017-10-15] MEDS ORDERED: BUMETANIDE 0.25 MG/ML VIAL IV ONE (19:23)
[2017-10-15] MEDS ORDERED: IPRATROPIUM/ALBUTEROL 3 ML VIAL NEB ONE (19:24)
--- NOTE | 2017-10-15 19:58 | RAD ---
EXAM DESCRIPTION: Chest,1 View CLINICAL HISTORY:57 years Male, sob Comparison: August 16, 2017 FINDINGS: Right basilar patchy opacities may represent atelectasis or pneumonia. Possible small right pleural effusion. Cardiac and mediastinal silhouette is unremarkable. No acute osseous abnormality. Soft tissues are unremarkable. IMPRESSION: Right basilar patchy opacities may represent atelectasis or pneumonia. Possible small right pleural effusion Electronically signed by: Per Santamaria MD 10/15/2017 7:57 PM CDT
[2017-10-15] MEDS ORDERED: KETOROLAC TROMETHAMINE INJ 30 MG/ML VIAL IV ONE (20:49)
[2017-10-15] MEDS ORDERED: traMADol HCL 50 MG TAB PO ONE (20:49)
[2017-10-15] MEDS ORDERED: cefTRIAXone SODIUM 1 GM VIAL IM ONE (20:49)
[2017-10-15] MEDS ORDERED: DOXYCYCLINE HYCLATE CAP 100 MG CAP PO ONE (20:49)
[2017-10-15] MEDS ORDERED: KETOROLAC TROMETHAMINE INJ 30 MG/ML VIAL IM ONE (21:10)
[2017-10-15] MEDS ORDERED: LIDOCAINE 1% 10 ML VIAL INJ ONE (21:23)
[2017-10-15 22:02] VITALS: BP 129/89
[2017-10-15 22:03] VITALS: TEMP 97.2; O2SAT 93
== END 2017-10-15 22:14 | disposition home or self-care (01) ==
LOC: ER 16:50
DX: M79.662 Pain in left lower leg (principal); M79.661 Pain in right lower leg; J18.1 Lobar pneumonia, unspecified organism; J44.9 Chronic obstructive pulmonary disease, unspecified; I25.2 Old myocardial infarction; I10 Essential (primary) hypertension; K21.9 Gastro-esophageal reflux disease without esophagitis; Z79.899 Other long term (current) drug therapy; Z79.82 Long term (current) use of aspirin
CPT/HCPCS: 36415; 71045; 80048; 80076; 82550; 82553; 83880; 84484; 84550; 85025; 85610; 85730; 93005; 94640; J0696; J1885; J7620

== ENCOUNTER 2017-11-27 04:36 | Emergency (ER) | payer OTHER ==
[2017-11-27] MEDS ORDERED: NITROGLYCERIN 0.4 MG 25 EA TAB SL ONE ×2 (04:43→04:48)
[2017-11-27] MEDS ORDERED: ASPIRIN TABLET 325 MG TAB ONE (04:43)
[2017-11-27] MEDS ORDERED: SODIUM CHLORIDE 0.9% (FLUSH) 10 ML SYG IV PRN (04:48)
[2017-11-27] MEDS ORDERED: ASPIRIN TABLET 325 MG TAB PO ONE (04:48)
--- NOTE | 2017-11-27 05:07 | RAD ---
EXAM: AP CHEST RADIOGRAPH CLINICAL INDICATION: Acute chest pain. Shortness of breath. COMPARISON: Compared to the chest radiograph October 15, 2017. FINDINGS: Cardiac size and pulmonary vasculature are normal. Lungs are clear. No pleural effusions or pneumothorax. IMPRESSION: Normal chest radiograph. Electronically signed by: Luis A Chin MD 11/27/2017 5:05 AM CDT
[2017-11-27] MEDS ORDERED: HYDROcodone 5MG/APAP 325MG 1 EA TAB PO ONE (05:09)
[2017-11-27] MEDS ORDERED: IPRATROPIUM/ALBUTEROL 3 ML VIAL NEB ONE (05:10)
[2017-11-27] MEDS ORDERED: predniSONE 20 MG TAB PO ONE (05:12)
--- NOTE | 2017-11-27 05:15 | ED.PDOC ---
History of Present Illness - General Chief Complaint: Chest Pain/CA Stated Complaint: Chest pain, dyspnea Time Seen by Provider: 11/27/17 05:04 Source: patient Exam Limitations: no limitations - History of Present Illness Initial Comments: The patient is a 57-year-old male presenting to the emergency room secondary to chest pain starting around 11:00 last night. The chest pain started fairly suddenly. He is attempted several medications at home. He received a dose of nitroglycerin here. None of which have helped. The pain is around the sternum and on palpation is reproducible just to the right side of his sternum. He has had costochondral pain in the past. He does get anxious with this pain. He has apparently previously had a heart attack back in 1988 but no significant cardiac issues since that time. He does have known COPD. He does have occasional PVCs on telemetry. No syncope or near syncope. The pain is made worse with taking a deep breath and coughing. No dizziness. No edema. Timing/Duration: unsure Severity: moderate Improving Factors: nothing Worsening Factors: movement Associated Symptoms: chest pain, cough, shortness of breath Allergies/Adverse Reactions: Allergies Codeine Allergy (Verified 09/10/17 19:12) Meperidine [From Demerol HCl] Allergy (Verified 09/10/17 19:12) Home Medications: Ambulatory Orders Aripiprazole [Abilify] 30 mg PO BEDTIME 06/22/14 Trazodone HCl 100 mg PO BEDTIME 06/22/14 cloNAZepam [KlonoPIN] 0.5 mg PO BID 02/24/15 Lisinopril 10 mg PO DAILY 09/12/15 Ibuprofen [Goodsense Ibuprofen] 400 mg PO Q6H PRN #100 tab 02/16/16 Aspirin [Aspirin Adult Low Dose] 81 mg PO DAILY #120 tab 08/15/16 Nitroglycerin 0.4 mg (ER Disp) [Nitrostat] 0.4 mg SL Q5MIN PRN #30 tab 08/15/16 Hydrochlorothiazide 25 mg PO DAILY 03/20/17 Primidone 03/20/17 Zbnamhulicjmg-Tycg-Hhkhjpqakb [Fioricet] 1 ea PO Q8H PRN #21 tab 05/19/17 predniSONE [Prednisone] 20 mg PO DAILY #3 tab 05/19/17 Azithromycin 250 mg PO DAILY #5 tab 07/27/17 Cyclobenzaprine Tab (ER Disp) [Flexeril Tab (ER Dispense)] 10 mg PO TID PRN #15 tab 08/16/17 Tramadol HCl 50 mg PO Q4HR PRN #20 tab 08/16/17 predniSONE [Prednisone] 20 mg PO DAILY #7 tab 09/10/17 Doxycycline Hyclate 100 mg PO BID 10 Days #20 tab 10/15/17 Tramadol HCl 50 mg PO TID PRN #20 tab 10/15/17 Azithromycin 500 mg PO DAILY #5 tab 11/27/17 Tramadol HCl 50 mg PO Q6HR PRN #30 tab 11/27/17 predniSONE [Prednisone] 20 mg PO DAILY #5 tab 11/27/17 Review of Systems - Review of Systems Constitutional: States: no symptoms reported EENTM: States: no symptoms reported Respiratory: States: cough - ild, short of breath Cardiology: States: chest pain Gastrointestinal/Abdominal: States: no symptoms reported Genitourinary: States: no symptoms reported Musculoskeletal: States: no symptoms reported Skin: States: no symptoms reported Neurological: States: anxiety Endocrine: States: no symptoms reported All other Systems: No Change from Baseline Past Medical History (General) - Patient Medical History Hx Seizures: No Hx Stroke: No Hx Dementia: No Hx Asthma: No Hx of COPD: Yes Hx Cardiac Disorders: Yes - [place] 1988 Hx Congestive Heart Failure: No Hx Pacemaker: No Hx Hypertension: Yes Hx Thyroid Disease: No Hx Diabetes: No Hx Gastroesophageal Reflux: Yes Hx Renal Disease: No Hx Cancer: No Hx of HIV: No Hx Hepatitis C: No Hx MRSA: No Surgical History: angioplasty, appendectomy - Vaccination History Hx Tetanus, Diphtheria Vaccination: No Hx Influenza Vaccination: Yes Hx Pneumococcal Vaccination: Yes Immunizations Up to Date: Yes - Social History Hx Tobacco Use: No Hx Chewing Tobacco Use: No Hx Alcohol Use: No Hx Substance Use: No Hx Substance Use Treatment: No Hx Depression: No Hx Physical Abuse: No Hx Emotional Abuse: No Hx Suspected Abuse: No - Female History Patient : No Family Medical History - Family History Mother Family History: No Known Living Status: Still Living Hx Family Hypertension: Yes Hx Family Stroke: Yes - dad Hx Cardiac Disease: Yes Hx Family Diabetes: Yes - parents Hx Family Cancer: Yes - Lung CA Physical Exam - Physical Exam General Appearance: Alert, Comfortable, No apparent distress Eye Exam: bilateral normal Ears, Nose, Throat: hearing grossly normal - voice is chronically hoarse, normal ENT inspection, normal pharynx Neck: full range of motion, supple Respiratory: lungs clear, normal breath sounds, no respiratory distress, no accessory muscle use Cardiovascular/Chest: normal peripheral pulses, regular rate, rhythm - occasional PVCs on telemetry, no edema Peripheral Pulses: radial,right: 2+, radial,left: 2+, dorsalis pedis,right: 2+, dorsalis pedis,left: 2+ Gastrointestinal/Abdominal: non tender, soft Rectal Exam: deferred Back Exam: normal inspection, no CVA tenderness, no vertebral tenderness Extremity: normal range of motion, non-tender, no pedal edema, no calf tenderness, normal capillary refill Neurologic: nursing specialist II-XII nml as tested, alert, normal mood/affect - he is anxious , oriented x 3 Skin Exam: normal color Comments: Vital Signs - 24 hr 11/27/17 11/27/17 04:47 04:57 Pulse Rate [ 93 H 93 H left radial] Respiratory 24 24 Rate Blood Pressure 135/73 [Left Arm] O2 Sat by Pulse 96 Oximetry Progress - Progress Progress: 11/27/17 05:40 the patient is a 57-year-old male presenting to the emergency room secondary to chest pain that is localizing just to the right of the sternum. He has had recurrent episodes costochondritis at that site. His pain has been present and fairly steady for the last 6 hours. Cardiac enzymes are completely negative. D-dimer is negative. EKG shows no acute changes. Pain is reproducible with palpation. nitroglycerin failed to help. He does have mild Rales and wheezes in the right midlung field underlying the area. Chest x-ray is negative. The diagnosis for this patient is going to be costochondritis and COPD exacerbation. The patient is going to be placed on prednisone 20 mg daily for the next 5 days. He is also going to be placed on azithromycin for the next 5 days. He needs to increase his DuoNeb treatments to 4 times a day rather than 2 times daily. He will also be written for some tramadol for pain control for his rib pain. ER warnings were given. He should follow back up with his primary care doctor later this week. Given the clinical presentation, lab findings, EKG findings, chest x-ray findings and the fact that he had a negative cath with Dr. Bravo less than 2 years ago makes this a low probability of this chest pain being from a cardiac source. vital signs are stable and the patient's questions have been answered. - Results/Orders Results/Orders: chest x-ray shows no significant infiltrate. There is no cardiomegaly or effusion. No evidence of fluid overload. EKG Stat normal sinus rhythm at 94 bpm.very mild right axis deviation. No acute ST segment changes concerning for ischemia. EKG is consistent with the EKG from September 2017. Laboratory Results - last 24 hr 11/27/17 11/27/17 04:48 04:48 WBC 6.9 RBC 4.43 L Hgb 13.4 L Hct 39.3 L MCV 88.6 MCH 30.2 MCHC 34.1 RDW 14.4 Plt Count 183 MPV 6.6 L Absolute Neuts (auto) 4.30 Absolute Lymphs (auto) 1.70 Absolute Monos (auto) 0.60 Absolute Eos (auto) 0.30 Absolute Basos (auto) 0.00 Neutrophils % 62.2 Lymphocytes % 24.2 Monocytes % 8.6 Eosinophils % 4.7 Basophils % 0.3 PT 12.0 INR 1.030 PTT (SP) 32.8 D-Dimer, Quantitative < 200 Sodium 136 Potassium 3.7 Chloride 103 Carbon Dioxide 28 Anion Gap 8.7 L BUN 16 Creatinine 0.99 BUN/Creatinine Ratio 16.2 Random Glucose 110 H Serum Osmolality 273.8 L Calcium 8.6 Magnesium 1.8 Creatine Kinase 72 CK-MB (CK-2) 1.9 CK-MB (CK-2) % Not Reportable Troponin I < 0.02 B-Natriuretic Peptide < 5.0 Departure - Departure Clinical Impression: Costochondritis, acute, COPD with acute exacerbation Disposition: Discharge to Home or Self Care Condition: Fair Departure Forms: ED Discharge - Pt. Copy, Patient Portal Self Enrollment Instructions: DI for Costochondritis, DI for Chronic Obstructive Pulmonary Disease Diet: regular diet Activity: increase activity as tolerated Referrals: Blanca Bains MD [Primary Care Provider] - 1-5 Days Prescriptions: Tramadol HCl 50 mg PO Q6HR PRN #30 tab PRN Reason: Moderate Pain Azithromycin 500 mg PO DAILY #5 tab predniSONE [Prednisone] 20 mg PO DAILY #5 tab Home Medications: Ambulatory Orders Aripiprazole [Abilify] 30 mg PO BEDTIME 06/22/14 Trazodone HCl 100 mg PO BEDTIME 06/22/14 cloNAZepam [KlonoPIN] 0.5 mg PO BID 02/24/15 Lisinopril 10 mg PO DAILY 09/12/15 Ibuprofen [Goodsense Ibuprofen] 400 mg PO Q6H PRN #100 tab 02/16/16 Aspirin [Aspirin Adult Low Dose] 81 mg PO DAILY #120 tab 08/15/16 Nitroglycerin 0.4 mg (ER Disp) [Nitrostat] 0.4 mg SL Q5MIN PRN #30 tab 08/15/16 Hydrochlorothiazide 25 mg PO DAILY 03/20/17 Primidone 03/20/17 Enoqdicbffmnj-Sjhy-Wpkycstuuu [Fioricet] 1 ea PO Q8H PRN #21 tab 05/19/17 predniSONE [Prednisone] 20 mg PO DAILY #3 tab 05/19/17 Azithromycin 250 mg PO DAILY #5 tab 07/27/17 Cyclobenzaprine Tab (ER Disp) [Flexeril Tab (ER Dispense)] 10 mg PO TID PRN #15 tab 08/16/17 Tramadol HCl 50 mg PO Q4HR PRN #20 tab 08/16/17 predniSONE [Prednisone] 20 mg PO DAILY #7 tab 09/10/17 Doxycycline Hyclate 100 mg PO BID 10 Days #20 tab 10/15/17 Tramadol HCl 50 mg PO TID PRN #20 tab 10/15/17 Azithromycin 500 mg PO DAILY #5 tab 11/27/17 Tramadol HCl 50 mg PO Q6HR PRN #30 tab 11/27/17 predniSONE [Prednisone] 20 mg PO DAILY #5 tab 11/27/17 Additional Instructions: the patient is a 57-year-old male presenting to the emergency room secondary to chest pain that is localizing just to the right of the sternum. He has had recurrent episodes costochondritis at that site. His pain has been present and fairly steady for the last 6 hours. Cardiac enzymes are completely negative. D-dimer is negative. EKG shows no acute changes. Pain is reproducible with palpation. nitroglycerin failed to help. He does have mild Rales and wheezes in the right midlung field underlying the area. Chest x-ray is negative. The diagnosis for this patient is going to be costochondritis and COPD exacerbation. The patient is going to be placed on prednisone 20 mg daily for the next 5 days. He is also going to be placed on azithromycin for the next 5 days. He needs to increase his DuoNeb treatments to 4 times a day rather than 2 times daily. He will also be written for some tramadol for pain control for his rib pain. ER warnings were given. He should follow back up with his primary care doctor later this week. Given the clinical presentation, lab findings, EKG findings, chest x-ray findings and the fact that he had a negative cath with Dr. Bravo less than 2 years ago makes this a low probability of this chest pain being from a cardiac source. vital signs are stable and the patient's questions have been answered.
[2017-11-27] MEDS ORDERED: AZITHROMYCIN 250 MG TAB PO ONE (05:49)
[2017-11-27 06:11] VITALS: BP 123/70; TEMP 97.5; O2SAT 92
== END 2017-11-27 06:10 | disposition home or self-care (01) ==
LOC: ER 04:36
DX: M94.0 Chondrocostal junction syndrome [Tietze] (principal); J44.1 Chronic obstructive pulmonary disease with (acute) exacerbation; I25.2 Old myocardial infarction; I10 Essential (primary) hypertension; K21.9 Gastro-esophageal reflux disease without esophagitis; Z79.82 Long term (current) use of aspirin; Z79.899 Other long term (current) drug therapy
CPT/HCPCS: 36415; 71045; 80048; 82550; 82553; 83880; 84484; 85025; 85379; 85610; 85730; 93005; 94640; J7512; J7620; Q0144

== ENCOUNTER 2017-12-12 12:48 | Emergency (ER) | payer OTHER ==
[2017-12-12 13:19] VITALS: TEMP 98.2
[2017-12-12] MEDS ORDERED: KETOROLAC TROMETHAMINE INJ 30 MG/ML VIAL IV ONE (13:29)
--- NOTE | 2017-12-12 13:45 | RAD ---
EXAM DESCRIPTION: XR CHEST 2 VIEWS CLINICAL HISTORY: chest pain COMPARISON: 11/27/2018 and 10/15/2017 TECHNIQUE: PA/lateral FINDINGS: Heart size normal. Normal mediastinal contour. No pulmonary edema, or alveolar consolidation. Mild volume loss in the lung bases, compatible with atelectasis/scar. No pleural effusion. No pneumothorax. Pleural thickening bilaterally IMPRESSION: Basilar opacity consistent with mild atelectasis no significant interval change compared to previous study Electronically signed by: Owen Antoine MD 12/12/2017 1:43 PM CDT
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
[2017-12-12] MEDS ORDERED: fentaNYL CITRATE INJ 50 MCG/ML AMP IV ONE ×2 (15:32→18:21)
--- NOTE | 2017-12-12 17:33 | CT ---
EXAM DESCRIPTION: CTA Chest CLINICAL HISTORY: 57 years Male, CP, SOB, ELEVATED D DIMER, R/O PE COMPARISON: Chest x-ray dated November, CT of the chest at 07 February 2017 TECHNIQUE: Transaxial images were obtained during injector administrated intravenous contrast media. Multiplanar reconstruction was performed. No 3-D reconstruction was performed.This exam was performed according to our departmental dose-optimization program, which includes automated exposure control, adjustment of the mA and/or kV according to patient size and/or use of iterative reconstruction technique. FINDINGS: The thyroid is normal in appearance. No pleural fluid is identified. No adrenal masses are detected. No aortic abnormality is seen. No evidence of pulmonary embolus is detected. Parenchymal scarring is observed in both lung bases. There is some pleural thickening along the right posterior chest wall. Degenerative changes are seen in the thoracic spine. IMPRESSION: 1. No evidence of a pulmonary embolus is seen. 2. Chronic parenchymal changes are observed. No significant interval changes observed from the remote CT. Electronically signed by: Peter Medley MD 12/12/2017 5:32 PM CDT
[2017-12-12] MEDS ORDERED: PANTOPRAZOLE SODIUM TAB 40 MG PO ONE (18:21)
[2017-12-12 19:00] VITALS: BP 138/78; O2SAT 97
== END 2017-12-12 18:57 | disposition home or self-care (01) ==
LOC: ER 12:48
DX: R07.1 Chest pain on breathing (principal); I10 Essential (primary) hypertension; R06.02 Shortness of breath; J44.9 Chronic obstructive pulmonary disease, unspecified; K21.9 Gastro-esophageal reflux disease without esophagitis; I25.2 Old myocardial infarction; Z79.899 Other long term (current) drug therapy; Z79.82 Long term (current) use of aspirin; Z88.5 Allergy status to narcotic agent; Z88.8 Allergy status to other drugs, medicaments and biological substances
CPT/HCPCS: 36415; 71046; 71275; 80053; 83880; 84484; 85025; 85379; 93005; J1885; J3010

== ENCOUNTER → 2018-02-24 | Outpatient (CLI) | payer MEDICARE ==
--- NOTE | 2018-02-24 12:01 | RAD ---
EXAM DESCRIPTION: Chest,2 Views CLINICAL HISTORY: PRODUCTIVE COUGH COMPARISON: Previous study February 05, 2018 TECHNIQUE: PA/lateral FINDINGS: Heart is prominent. Prominent epicardial fat pads. Obscuration of the right hemidiaphragm is seen with findings suggesting chronic volume loss or infiltrate in the right infrahilar and right lower lobe regions. There is thickening of the pleura or extrapleural soft tissues bilaterally. Lesser partial volume loss or infiltrate in the left lung base. Findings are similar to previous study although obscuration of the right hemidiaphragm appears somewhat worsened. Lateral view shows infiltrate in the lower lobes overlying the thoracic spine. This appearance was present on the previous study. IMPRESSION: Bilateral lower lobe infiltrates or volume loss, slightly worse in the right lower lobe since previous study. Electronically signed by: Jorge Vogt MD 02/24/2018 12:00 PM CDT
== END ==
LOC: YCFC.O 09:40
PROVIDERS: ATTEND Nurse Practitioner Family
DX: R05 Cough (principal); R50.9 Fever, unspecified

== ENCOUNTER → 2018-04-03 | Outpatient (CLI) | payer MEDICARE ==
--- NOTE | 2018-04-03 15:09 | MRI ---
EXAM DESCRIPTION: Brain w/o Contrast: MRI. CLINICAL HISTORY: MIGRAINE COMPARISON: None. TECHNIQUE: Multiplanar, high-field MRI unit, multiple diffusion sequences, multiple conventional sequences without contrast. FINDINGS: Normal FLAIR and T2-weighted signal in the periventricular white matter and kessler-white matter junctions of the cerebral hemispheres. . No hemorrhage, no cerebral edema, no mass-effect. Normal signal in the bilateral basal ganglia. Normal signal in the brainstem and cerebellar hemispheres. No hemorrhage, no cerebral edema, no mass-effect. Concordance of the diffusion and non-diffusion sequences with no diffusion restriction. Cortical sulci, ventricles, and other CSF spaces, and the subdural spaces are normally configured. No effacement or displacement. No midline shift. No extra-axial hemorrhage. Normal flow signal void in the major vessels of the [place], and the venous sinuses. IACs are symmetric bilaterally. Minimal fluid signal in the inferior left mastoid air cells. No mass effect in the bilateral cerebellopontine angles. Pituitary gland occupies the entire sella. Base of the cerebellar tonsils is at the level of the foramen magnum. Minimal mucoperiosteal thickening in the paranasal sinuses. Sharon bullosa in the right middle turbinate. The bony calvarium is intact. IMPRESSION: 1. MRI of the brain showing no significant white matter abnormalities. No hemorrhage, no cerebral edema, no diffusion restriction. 2. No extra-axial hemorrhage. Normal noncontrast diffusion study with no evidence of acute or subacute infarction. 3. Minimal inflammatory changes in the inferior left mastoid air cells also paranasal sinuses. Electronically signed by: Alli Ferreira MD 04/03/2018 3:08 PM CDT
== END ==
LOC: MRI 14:09
PROVIDERS: ATTEND Family Medicine
DX: G43.909 Migraine, unspecified, not intractable, without status migrainosus (principal)

== ENCOUNTER → 2018-04-21 | Outpatient (CLI) | payer MEDICARE | LOC: YCFC.O 14:56 | PROVIDERS: ATTEND Nurse Practitioner Family | DX: N64.4 Mastodynia (principal) ==

== ENCOUNTER → 2018-04-24 | Outpatient (CLI) | payer MEDICARE ==
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
== END ==
LOC: US 10:49
PROVIDERS: ATTEND Nurse Practitioner Family
DX: N64.4 Mastodynia (principal)

== ENCOUNTER → 2018-05-02 | Outpatient (CLI) | payer MEDICARE ==
--- NOTE | 2018-05-02 21:26 | US ---
EXAM DESCRIPTION: Extremity,Lower RT Arteries: Ultrasound. CLINICAL HISTORY: PVD COMPARISON: None. TECHNIQUE: Doppler evaluation of the right lower extremity arterial flow waveforms and velocities. FINDINGS: Arterial waveforms in the right lower extremity are triphasic from the right common femoral artery to the right dorsalis pedis artery. The right posterior tibial artery is monophasic. Comments: Velocities in the right posterior tibial artery is less than that of the right dorsalis pedis artery. IMPRESSION: Study indicates a possible occlusion or stenosis in the proximal right posterior tibial artery. The right peroneal artery in the right dorsalis pedis artery demonstrate normal velocities and normal waveforms. Consider further evaluation by CT arteriography of the lower extremities. Electronically signed by: Alli Ferreira MD 05/02/2018 9:25 PM TRANSPORTATION ATTENDANT
== END ==
LOC: US 13:57
PROVIDERS: ATTEND Family Medicine
DX: I73.9 Peripheral vascular disease, unspecified (principal); R60.0 Localized edema

== ENCOUNTER → 2018-05-12 | Outpatient (CLI) | payer MEDICARE ==
--- NOTE | 2018-05-12 12:30 | CT ---
EXAM DESCRIPTION: CTA Runoff: Computed Tomography. CLINICAL HISTORY: Peripheral vascular disease unspecified. COMPARISON: CTA chest 12/12/2017. TECHNIQUE: CT angiography of the abdominal aorta and both lower extremities is performed during rapid bolus administration of IV contrast media. Three-dimensional volume-rendering imaging is reviewed along with 2.5 x 2.5 mm helical source images, and 2.0 mm coronal and sagittal reformats. Total Exam DLP: 1961.94 mGy-cm. This exam was performed according to our departmental CT dose-optimization program which includes automated exposure control, adjustment of the mA and/or kV according to patient size and/or use of iterative reconstruction technique; to reduce radiation dose to as low as reasonably achievable (ALARA). FINDINGS: Upper abdominal aorta: Normal caliber with no significant amount of atherosclerotic calcification. Calcification in the origins of the SMA and celiac trunk. Mid-abdominal aorta: Caliber is unremarkable. No significant narrowing or aneurysm formation at the origins of the single renal arteries bilaterally or the lumbar arteries. Distal abdominal aorta: Minimal calcification anteriorly just above the SMA origin which is unremarkable. Caliber of the aorta is within the normal range. Common iliacs: Negative. Internal iliacs: Unremarkable. Bilateral external iliac arteries: Bilaterally negative. Bilateral HOME SERVICE DIRECTOR's: Unremarkable. Bilateral SFAs: Negative. Bilateral popliteal arteries: Unremarkable. Right trifurcation vessels: Normal origins of the anterior tibial artery with fair runoff bilaterally into the dorsalis pedis artery which is visualized. Failure contrast visualization right proximal SECURITY CONTROL CENTER OPERATOR but tapers and is occluded at the mid and lower leg. Right peroneal artery persists distally with good runoff into the posterior right foot. No atherosclerotic calcifications are seen in the trifurcation vessels.. Left trifurcation vessels: Origin of the left COREY is well visualized with good contrast flow, more distally fair runoff into the ankle and left dorsalis pedis artery. Good contrast visualization of the posterior tibial artery throughout its entire length with flow into the posterior left foot. No definitive visualization of the proximal left peroneal artery with decreasing visualization and terminates above the distal tibiofibular joint and the ankle mortise. No atherosclerotic calcifications are seen in the trifurcation vessels. Other: Minimal scarring in the right lung base. No other significant nonvascular findings. IMPRESSION: 1. No significant findings in the abdominal aorta or major branch vessels originating from the aorta. No significant findings in the bilateral iliac systems, bilateral common femoral arteries, or bilateral superficial femoral or popliteal arteries. 2. Right posterior tibial artery tapers and is occluded at the level of the mid lower leg. Right peroneal artery persists into the ankle and foot, supplying the posterior foot. Right anterior tibial artery with good efferent visualization and runoff into the right dorsalis pedis artery. 3. Left posterior tibial artery demonstrates good flow and visualization from its origin into the left posterior foot. Normal tapering of the distal left peroneal artery and nonvisualization distally. Left anterior tibial artery with good efferent visualization and runoff into the left dorsalis pedis artery Electronically signed by: Alli Ferreira MD 05/12/2018 12:28 PM METAL SMELTER
== END ==
LOC: CT 08:40
PROVIDERS: ATTEND Family Medicine
DX: I73.9 Peripheral vascular disease, unspecified (principal)

== ENCOUNTER 2018-07-11 08:04 | Emergency (ER) | payer MEDICARE ==
--- NOTE | 2018-07-11 08:18 | ED.PDOC ---
History of Present Illness - General Chief Complaint: Respiratory Problem Stated Complaint: shortness of breath Time Seen by Provider: 07/11/18 08:07 Source: patient Exam Limitations: no limitations - History of Present Illness Initial Comments: Patient presents with dyspnea since last night. He has COPD and hx of AMI s/p PTCA. He says that he just got over a URI and last night his chronic cough increased. It is non-productive. He does not use oxygen at home. He took several nebulizer treatments but says that they did not help. He normally uses Advair but ran out of that one month ago. Denies chest pain or fever. No other complaints. Timing/Duration: other - 12 hours Severity: mild Improving Factors: nothing Worsening Factors: nothing Associated Symptoms: other - as in HPI Allergies/Adverse Reactions: Allergies Codeine Allergy (Intermediate, Verified 02/04/18 22:13) vomiting, itch dizzy Meperidine [From Demerol HCl] Allergy (Intermediate, Verified 02/04/18 22:13) vomiting, dizzy itch Home Medications: Ambulatory Orders Aripiprazole [Abilify] 30 mg PO BEDTIME 06/22/14 Trazodone HCl 100 mg PO BEDTIME 06/22/14 cloNAZepam [Klonopin] 0.5 mg PO BID 02/24/15 Lisinopril 10 mg PO DAILY 09/12/15 Aspirin [Aspirin Adult Low Dose] 81 mg PO DAILY #120 tab 08/15/16 Hlsofqwuxts-Qglhyqbjluyr-Cnkma [Trelegy Ellipta 100-62.5-25 Mcg/INH] 1 aer IN DAILY 02/04/18 OXcarbazepine [Trileptal] 300 mg PO BID 02/04/18 Omeprazole 40 mg PO DAILY 02/04/18 Spironolactone 25 mg PO BID 02/04/18 Nitroglycerin 0.4 mg Tab [Nitrostat] 1 tablet SL Q5MIN PRN #1 bottle 02/05/18 Omeprazole [Prilosec Cap] 20 mg PO ACBK #30 cap 02/05/18 Sucralfate Tab [Carafate Tab] 1 gm PO ACHS #40 tablet 02/05/18 Amoxicillin & Pot Clavulanate [Augmentin Tab] 875 mg PO BID #13 tab 07/11/18 Qcujqusfifh-Xohewadfeuvv-Orima [Trelegy Ellipta 100-62.5-25 Mcg/INH] 1 aer IN DAILY #1 aer 07/11/18 Prednisone [Deltasone] 20 mg PO DAILY #5 tab 07/11/18 Review of Systems - Review of Systems Constitutional: States: no symptoms reported EENTM: States: no symptoms reported Respiratory: States: see HPI Cardiology: States: no symptoms reported Gastrointestinal/Abdominal: States: no symptoms reported Genitourinary: States: no symptoms reported Musculoskeletal: States: no symptoms reported Skin: States: no symptoms reported Neurological: States: no symptoms reported Endocrine: States: no symptoms reported Hematologic/Lymphatic: States: no symptoms reported Past Medical History (General) - Patient Medical History Hx Seizures: No Hx Stroke: No Hx Dementia: No Hx Asthma: Yes Hx of COPD: Yes Hx Cardiac Disorders: Yes - [place] Hx Congestive Heart Failure: No Hx Pacemaker: No Hx Hypertension: Yes Hx Thyroid Disease: No Hx Diabetes: No Hx Gastroesophageal Reflux: Yes Hx Renal Disease: No Hx Cancer: No Hx of HIV: No Hx Hepatitis C: No Hx MRSA: No Surgical History: appendectomy - Vaccination History Hx Tetanus, Diphtheria Vaccination: No Hx Influenza Vaccination: Yes Hx Pneumococcal Vaccination: Yes - Social History Hx Tobacco Use: Yes - quit in 2008 Hx Chewing Tobacco Use: No Hx Alcohol Use: No Hx Substance Use: No Hx Substance Use Treatment: No Hx Depression: No Hx Physical Abuse: No Hx Emotional Abuse: No Hx Suspected Abuse: No - Female History Patient : No Family Medical History - Family History Mother Family History: No Known Living Status: Still Living Hx Family Hypertension: Yes Hx Family Stroke: Yes - dad Hx Cardiac Disease: Yes Hx Family Diabetes: Yes - parents Hx Family Cancer: Yes - Lung CA Physical Exam - Physical Exam General Appearance: Alert Ears, Nose, Throat: hearing grossly normal, normal ENT inspection Neck: non-tender, full range of motion, supple Respiratory: wheezing - scant expiratory wheezing in all lung spring Cardiovascular/Chest: normal peripheral pulses, regular rate, rhythm, no edema Gastrointestinal/Abdominal: normal bowel sounds, non tender, soft Back Exam: normal inspection, no CVA tenderness Extremity: normal range of motion, no pedal edema Neurologic: no motor/sensory deficits, alert, normal mood/affect, oriented x 3 Skin Exam: normal color Lymphatic: no adenopathy Progress - Progress Progress: 07/11/18 09:14 CXR showed mild bibasilar atelectasis vs. infiltrate. Normal wbc. Patient felt back to his baseline after one duoneb and solumedrol 60 mg IV x one. He was also given Augmentin 875 mg po x one in the E.D. He was sent home with an RX for Augmentin x 7 days and prednisone x 7 days. E.R. warnings given. Care instructions given. Questions were elicited and answered. The patient voiced understanding and agreement with the plan. Laboratory Tests 07/11/18 07/11/18 07/11/18 08:00 08:00 08:00 WBC 6.5 RBC 4.92 Hgb 14.5 Hct 44.2 MCV 89.9 MCH 29.4 MCHC 32.7 L RDW 16.1 H Plt Count 225 MPV 7.7 Absolute Neuts (auto) 4.60 Absolute Lymphs (auto) 1.20 Absolute Monos (auto) 0.50 Absolute Eos (auto) 0.30 Absolute Basos (auto) 0.00 Neutrophils % 69.6 Lymphocytes % 17.8 L Monocytes % 8.0 Eosinophils % 4.3 Basophils % 0.3 Sodium 138 Potassium 3.6 Chloride 103 Carbon Dioxide 27 Anion Gap 11.6 L BUN 10 Creatinine 0.99 BUN/Creatinine Ratio 10.1 Random Glucose 103 Serum Osmolality 275.0 Calcium 8.5 Total Bilirubin 0.4 AST 14 ALT 15 Alkaline Phosphatase 111 Creatine Kinase 73 CK-MB (CK-2) 3.1 CK-MB (CK-2) % Not Reportable Troponin I < 0.02 B-Natriuretic Peptide 20.6 Serum Total Protein 7.3 Albumin 3.7 Globulin 3.6 H Albumin/Globulin Ratio 1.0 L Departure - Departure Clinical Impression: COPD (chronic obstructive pulmonary disease) Disposition: Discharge to Home or Self Care Condition: Good Departure Forms: ED Discharge - Pt. Copy, Patient Portal Self Enrollment Instructions: Exacerbation of COPD Diet: resume usual diet Activity: increase activity as tolerated Referrals: Artis Huerta MD [Primary Care Provider] - 1-2 Weeks Prescriptions: Amoxicillin & Pot Clavulanate [Augmentin Tab] 875 mg PO BID #13 tab Qcpthatllsk-Xieoqltaozls-Fhiim [Trelegy Ellipta 100-62.5-25 Mcg/INH] 1 aer IN DAILY #1 aer Prednisone [Deltasone] 20 mg PO DAILY #5 tab Home Medications: Ambulatory Orders Aripiprazole [Abilify] 30 mg PO BEDTIME 06/22/14 Trazodone HCl 100 mg PO BEDTIME 06/22/14 cloNAZepam [Klonopin] 0.5 mg PO BID 02/24/15 Lisinopril 10 mg PO DAILY 09/12/15 Aspirin [Aspirin Adult Low Dose] 81 mg PO DAILY #120 tab 08/15/16 Qjmhejrybkn-Sxcdggneuzjm-Ypcez [Trelegy Ellipta 100-62.5-25 Mcg/INH] 1 aer IN DAILY 02/04/18 OXcarbazepine [Trileptal] 300 mg PO BID 02/04/18 Omeprazole 40 mg PO DAILY 02/04/18 Spironolactone 25 mg PO BID 02/04/18 Nitroglycerin 0.4 mg Tab [Nitrostat] 1 tablet SL Q5MIN PRN #1 bottle 02/05/18 Omeprazole [Prilosec Cap] 20 mg PO ACBK #30 cap 02/05/18 Sucralfate Tab [Carafate Tab] 1 gm PO ACHS #40 tablet 02/05/18 Amoxicillin & Pot Clavulanate [Augmentin Tab] 875 mg PO BID #13 tab 07/11/18 Pmibsexypnd-Vuhmfkxyzmzo-Qnifh [Trelegy Ellipta 100-62.5-25 Mcg/INH] 1 aer IN DAILY #1 aer 07/11/18 Prednisone [Deltasone] 20 mg PO DAILY #5 tab 07/11/18 Additional Instructions: Take medications as prescribed. Return to the E.R. for worsenign symptoms.
[2018-07-11] MEDS: methylPREDNISolone SODIUM SUC 125 MG/2 ML VIAL IV ONE (08:23)
--- NOTE | 2018-07-11 08:26 | RAD ---
Study: Single Frontal View of the Chest. Indication:dyspnea, COPD Comparison: February 24, 2018 Impression: Cardiomegaly. Patchy atelectasis versus consolidation at the bilateral lung bases noted and does appear slightly improved compared to prior. A small to moderate right pleural effusion suspected. Left pleural thickening in the mid to upper lung redemonstrated. No pneumothorax. No acute osseous abnormality. Electronically signed by: Michael Pearce MD 07/11/2018 8:25 AM SAFETY AND SECURITY OFFICER
[2018-07-11] MEDS: IPRATROPIUM/ALBUTEROL 3 ML VIAL NEB ONE (08:27)
[2018-07-11] MEDS: AMOXICILLIN & POT CLAVULANATE 875 MG TAB PO ONE (09:09)
[2018-07-11 09:11] VITALS: BP 143/84
[2018-07-11 09:36] VITALS: TEMP 97.8; O2SAT 95
== END 2018-07-11 09:34 | disposition home or self-care (01) ==
LOC: ER 08:04
DX: J44.9 Chronic obstructive pulmonary disease, unspecified (principal); I10 Essential (primary) hypertension; K21.9 Gastro-esophageal reflux disease without esophagitis; I25.2 Old myocardial infarction; Z87.891 Personal history of nicotine dependence; Z79.82 Long term (current) use of aspirin; Z79.899 Other long term (current) drug therapy; Z88.5 Allergy status to narcotic agent; Z88.8 Allergy status to other drugs, medicaments and biological substances
CPT/HCPCS: 36415; 71045; 80053; 82550; 82553; 83880; 84484; 85025; 85610; 85730; 93005; 94640; J2930; J7620

== ENCOUNTER 2018-08-08 11:27 | Emergency (ER) | payer MEDICARE ==
[2018-08-08 11:43] VITALS: TEMP 99.5
--- NOTE | 2018-08-08 12:19 | ED.PDOC ---
History of Present Illness - General Chief Complaint: General Stated Complaint: flu-like symptoms Time Seen by Provider: 08/08/18 12:16 Exam Limitations: no limitations - History of Present Illness Initial Comments: René Mark 58 y/o male stated that he had non productive cough the last 4 days ,nasal congestion and yesterday with flu like symptoms.Has flu immunization last year in .Stated exposed to friends with URI illness.has history of copd.Denies sob,N/V,fever chills but with body aches. Timing/Duration: constant Severity: moderate Improving Factors: nothing Worsening Factors: nothing Associated Symptoms: other - see hpi Allergies/Adverse Reactions: Allergies Codeine Allergy (Intermediate, Verified 02/04/18 22:13) vomiting, itch dizzy Meperidine [From Demerol HCl] Allergy (Intermediate, Verified 02/04/18 22:13) vomiting, dizzy itch Home Medications: Ambulatory Orders Aripiprazole [Abilify] 30 mg PO BEDTIME 06/22/14 Trazodone HCl 100 mg PO BEDTIME 06/22/14 cloNAZepam [Klonopin] 0.5 mg PO BID 02/24/15 Lisinopril 10 mg PO DAILY 09/12/15 Aspirin [Aspirin Adult Low Dose] 81 mg PO DAILY #120 tab 08/15/16 OXcarbazepine [Trileptal] 300 mg PO BID 02/04/18 Spironolactone 25 mg PO BID 02/04/18 Nitroglycerin 0.4 mg Tab [Nitrostat] 1 tablet SL Q5MIN PRN #1 bottle 02/05/18 Omeprazole [Prilosec Cap] 20 mg PO ACBK #30 cap 02/05/18 Sucralfate Tab [Carafate Tab] 1 gm PO ACHS #40 tablet 02/05/18 Bzdywfwskrt-Bkfqfcpzrdfd-Zibox [Trelegy Ellipta 100-62.5-25 Mcg/INH] 1 aer IN DAILY #1 aer 07/11/18 Prednisone [Deltasone] 20 mg PO DAILY #5 tab 07/11/18 Cefuroxime Axetil [Ceftin] 500 mg PO Q12H 10 Days #20 tablet 08/08/18 Doxycycline Hyclate 100 mg PO BID 10 Days #20 tab 08/08/18 Review of Systems - Review of Systems Constitutional: States: no symptoms reported EENTM: States: see HPI, nose congestion Respiratory: States: see HPI, cough Cardiology: States: no symptoms reported Gastrointestinal/Abdominal: States: no symptoms reported Genitourinary: States: no symptoms reported Musculoskeletal: States: no symptoms reported Skin: States: no symptoms reported Neurological: States: no symptoms reported Past Medical History (General) - Patient Medical History Hx Seizures: No Hx Stroke: No Hx Dementia: No Hx Asthma: Yes Hx of COPD: Yes Hx Cardiac Disorders: Yes - [place] Hx Congestive Heart Failure: No Hx Pacemaker: No Hx Hypertension: Yes Hx Thyroid Disease: No Hx Diabetes: No Hx Gastroesophageal Reflux: Yes Hx Renal Disease: No Hx Cancer: No Hx of HIV: No Hx Hepatitis C: No Hx MRSA: No Surgical History: appendectomy - Vaccination History Hx Tetanus, Diphtheria Vaccination: No Hx Influenza Vaccination: Yes Hx Pneumococcal Vaccination: Yes - Social History Hx Tobacco Use: Yes Hx Chewing Tobacco Use: No Hx Alcohol Use: No Hx Substance Use: No Hx Substance Use Treatment: No Hx Depression: No Hx Physical Abuse: No Hx Emotional Abuse: No Hx Suspected Abuse: No - Female History Patient : No Family Medical History - Family History Mother Family History: No Known Living Status: Still Living Hx Family Hypertension: Yes Hx Family Stroke: Yes - dad Hx Cardiac Disease: Yes Hx Family Diabetes: Yes - parents Hx Family Cancer: Yes - Lung CA Physical Exam - Physical Exam General Appearance: Alert, Comfortable, No apparent distress Eye Exam: bilateral normal Ears, Nose, Throat: hearing grossly normal, normal ENT inspection, normal pharynx Neck: non-tender, full range of motion, supple Respiratory: chest non-tender, no respiratory distress, no accessory muscle use, other - coarse bs Cardiovascular/Chest: normal peripheral pulses, regular rate, rhythm, no murmur Peripheral Pulses: radial,right: 2+, radial,left: 2+ Gastrointestinal/Abdominal: normal bowel sounds, non tender, soft Back Exam: no CVA tenderness, no vertebral tenderness Extremity: no pedal edema, no calf tenderness Neurologic: alert, oriented x 3 Skin Exam: normal color, warm/dry Lymphatic: no adenopathy Progress - Progress Progress: 08/08/18 12:26 Vital Signs - 8 hr 08/08/18 11:40 Temperature 99.5 F Pulse Rate [ 84 Right Brachial] Respiratory 20 Rate Blood Pressure 135/67 [Right Arm] O2 Sat by Pulse 95 Oximetry - Results/Orders Results/Orders: FLU SWAB NEGATIVE - EKG/XRAY/CT XRAY: chest - righ pleural effusion/atelectasis Departure - Departure Clinical Impression: Acute exacerbation of chronic bronchitis, Flu-like symptoms Time of Disposition: 13:18 Disposition: Discharge to Home or Self Care Condition: Fair Departure Forms: ED Discharge - Pt. Copy, Patient Portal Self Enrollment Instructions: Chronic Bronchitis, Chronic Bronchitis (DC) Referrals: Artis Huerta MD [Primary Care Provider] - 1-2 Weeks Prescriptions: Cefuroxime Axetil [Ceftin] 500 mg PO Q12H 10 Days #20 tablet Doxycycline Hyclate 100 mg PO BID 10 Days #20 tab Home Medications: Ambulatory Orders Aripiprazole [Abilify] 30 mg PO BEDTIME 06/22/14 Trazodone HCl 100 mg PO BEDTIME 06/22/14 cloNAZepam [Klonopin] 0.5 mg PO BID 02/24/15 Lisinopril 10 mg PO DAILY 09/12/15 Aspirin [Aspirin Adult Low Dose] 81 mg PO DAILY #120 tab 08/15/16 OXcarbazepine [Trileptal] 300 mg PO BID 02/04/18 Spironolactone 25 mg PO BID 02/04/18 Nitroglycerin 0.4 mg Tab [Nitrostat] 1 tablet SL Q5MIN PRN #1 bottle 02/05/18 Omeprazole [Prilosec Cap] 20 mg PO ACBK #30 cap 02/05/18 Sucralfate Tab [Carafate Tab] 1 gm PO ACHS #40 tablet 02/05/18 Encjimohasy-Pvqatonogugy-Gzwng [Trelegy Ellipta 100-62.5-25 Mcg/INH] 1 aer IN DAILY #1 aer 07/11/18 Prednisone [Deltasone] 20 mg PO DAILY #5 tab 07/11/18 Cefuroxime Axetil [Ceftin] 500 mg PO Q12H 10 Days #20 tablet 08/08/18 Doxycycline Hyclate 100 mg PO BID 10 Days #20 tab 08/08/18 Additional Instructions: Continue with all home medications and Albuterol MDI;return to ER if symptoms worsens
[2018-08-08] MEDS ORDERED: IPRATROPIUM/ALBUTEROL 3 ML VIAL NEB ONE (12:21)
--- NOTE | 2018-08-08 12:36 | RAD ---
EXAM DESCRIPTION: Chest,1 View CLINICAL HISTORY: 58 years Male, cough COMPARISON: Chest radiograph 07/11/2018 TECHNIQUE: Single frontal view of the chest. IMPRESSION: Cardiac silhouette is stably enlarged. Probable moderate right pleural effusion with adjacent atelectasis consolidation such as pneumonia versus aspiration. Left costophrenic angle is sharp. No pneumothorax. Thoracic spondylosis. Electronically signed by: Jesse Swartz MD 08/08/2018 12:33 PM TIMBER ESTIMATOR
[2018-08-08] MEDS ORDERED: cefTRIAXone SODIUM 1 GM VIAL IM ONE (12:58)
[2018-08-08] MEDS ORDERED: AZITHROMYCIN 250 MG TAB PO ONE (12:58)
[2018-08-08] MEDS ORDERED: DOXYCYCLINE HYCLATE CAP 100 MG CAP PO ONE (12:59)
[2018-08-08] MEDS ORDERED: LIDOCAINE 1% 10 ML VIAL INJ ONE (13:00)
[2018-08-08 13:30] VITALS: BP 149/74; O2SAT 93
== END 2018-08-08 13:30 | disposition home or self-care (01) ==
LOC: ER 11:27
DX: J44.9 Chronic obstructive pulmonary disease, unspecified (principal); J20.9 Acute bronchitis, unspecified; J44.0 Chronic obstructive pulmonary disease with (acute) lower respiratory infection; J11.1 Influenza due to unidentified influenza virus with other respiratory manifestations; I25.2 Old myocardial infarction; I10 Essential (primary) hypertension; K21.9 Gastro-esophageal reflux disease without esophagitis; Z79.899 Other long term (current) drug therapy; Z87.891 Personal history of nicotine dependence; Z88.8 Allergy status to other drugs, medicaments and biological substances; Z88.5 Allergy status to narcotic agent
CPT/HCPCS: 71045; 87502; 94640; J0696; J7620

== ENCOUNTER 2018-09-16 20:34 | Emergency (ER) | payer MEDICARE, OTHER ==
[2018-09-16] MEDS ORDERED: AZITHROMYCIN 250 MG TAB PO ONE (20:49)
[2018-09-16] MEDS ORDERED: predniSONE 20 MG TAB PO ONE (20:49)
--- NOTE | 2018-09-16 20:52 | ED.PDOC ---
History of Present Illness - General Chief Complaint: Respiratory Problem Stated Complaint: "throat closing", cough, dyspnea Time Seen by Provider: 09/16/18 20:36 Source: patient Exam Limitations: no limitations - History of Present Illness Initial Comments: the patient is a 58-year-old male presenting to emergency room secondary to a feeling of mild shortness of breath and mild pain when he swallowing in his throat just behind his [place]. He has been going on for 3 days. Mildly productive sputum. The patient has a very hoarse voice but he is always had a very hoarse voice since I have seen him. I feel no mass. I see no skin changes. He has not any respiratory distress. He is oxygenating well. Lung sounds are clear otherwise. He does have a history of significant reflux issues and only takes Zantac. Timing/Duration: other - 3 days Severity: moderate Improving Factors: nothing Worsening Factors: nothing Associated Symptoms: cough Allergies/Adverse Reactions: Allergies Codeine Allergy (Intermediate, Verified 02/04/18 22:13) vomiting, itch dizzy Meperidine [From Demerol HCl] Allergy (Intermediate, Verified 02/04/18 22:13) vomiting, dizzy itch Home Medications: Ambulatory Orders Aripiprazole [Abilify] 30 mg PO BEDTIME 06/22/14 Trazodone HCl 100 mg PO BEDTIME 06/22/14 cloNAZepam [Klonopin] 0.5 mg PO BID 02/24/15 Lisinopril 10 mg PO DAILY 09/12/15 Aspirin [Aspirin Adult Low Dose] 81 mg PO DAILY #120 tab 08/15/16 OXcarbazepine [Trileptal] 300 mg PO BID 02/04/18 Spironolactone 25 mg PO BID 02/04/18 Nitroglycerin 0.4 mg Tab [Nitrostat] 1 tablet SL Q5MIN PRN #1 bottle 02/05/18 Omeprazole [Prilosec Cap] 20 mg PO ACBK #30 cap 02/05/18 Sucralfate Tab [Carafate Tab] 1 gm PO ACHS #40 tablet 02/05/18 Tqbyiojzcmk-Lpillmbwtacd-Komop [Trelegy Ellipta 100-62.5-25 Mcg/INH] 1 aer IN DAILY #1 aer 07/11/18 Prednisone [Deltasone] 20 mg PO DAILY #5 tab 07/11/18 Cefuroxime Axetil [Ceftin] 500 mg PO Q12H 10 Days #20 tablet 08/08/18 Doxycycline Hyclate 100 mg PO BID 10 Days #20 tab 08/08/18 Azithromycin 500 mg PO DAILY #5 tab 09/16/18 Dexlansoprazole [Dexilant] 30 mg PO DAILY #30 cap 09/16/18 predniSONE [Prednisone] 20 mg PO DAILY #3 tab 09/16/18 Review of Systems - Review of Systems Constitutional: States: no symptoms reported EENTM: States: throat pain Respiratory: States: cough Cardiology: States: no symptoms reported Gastrointestinal/Abdominal: States: no symptoms reported Genitourinary: States: no symptoms reported Musculoskeletal: States: no symptoms reported Skin: States: no symptoms reported Neurological: States: no symptoms reported Endocrine: States: no symptoms reported All other Systems: No Change from Baseline Past Medical History (General) - Patient Medical History Hx Seizures: No Hx Stroke: No Hx Dementia: No Hx Asthma: Yes Hx of COPD: Yes Hx Cardiac Disorders: Yes - [place] Hx Congestive Heart Failure: No Hx Pacemaker: No Hx Hypertension: Yes Hx Thyroid Disease: No Hx Diabetes: No Hx Gastroesophageal Reflux: Yes Hx Renal Disease: No Hx Cancer: No Hx of HIV: No Hx Hepatitis C: No Hx MRSA: No - Vaccination History Hx Tetanus, Diphtheria Vaccination: No Hx Influenza Vaccination: Yes Hx Pneumococcal Vaccination: Yes - Social History Hx Tobacco Use: Yes Hx Chewing Tobacco Use: No Hx Alcohol Use: No Hx Substance Use: No Hx Substance Use Treatment: No Hx Depression: No Hx Physical Abuse: No Hx Emotional Abuse: No Hx Suspected Abuse: No - Female History Patient : No Family Medical History - Family History Mother Family History: No Known Living Status: Still Living Hx Family Hypertension: Yes Hx Family Stroke: Yes - dad Hx Cardiac Disease: Yes Hx Family Diabetes: Yes - parents Hx Family Cancer: Yes - Lung CA Physical Exam - Physical Exam General Appearance: Alert, Comfortable, No apparent distress Eye Exam: bilateral normal Ears, Nose, Throat: hearing grossly normal, normal pharynx, other - hoarse voice Neck: full range of motion, supple Respiratory: lungs clear, normal breath sounds, no respiratory distress, no accessory muscle use Cardiovascular/Chest: normal peripheral pulses, regular rate, rhythm, no edema Peripheral Pulses: radial,right: 2+, radial,left: 2+ Gastrointestinal/Abdominal: non tender, soft Rectal Exam: deferred Extremity: no pedal edema, no calf tenderness, normal capillary refill Neurologic: professor of voice II-XII nml as tested, alert, normal mood/affect, oriented x 3 Skin Exam: normal color Progress - Progress Progress: 09/16/18 20:52 the patient's a 58-year-old male presenting with what appears to be some laryngitis. The patient is going to be placed on azithromycin and prednisone with the first dose given here. Additionally I am going to add on Nexium for one month for the patient as he does have a history of some reflux issues and this may be contributing in a chronic form. I would like for him to get set up with a ear nose and throat doctor to let them have a look at his vocal cords. He is to see his primary care doctor to get this arranged. ER warnings were given for increasing worsening. Departure - Departure Clinical Impression: Laryngitis Disposition: Discharge to Home or Self Care Condition: Fair Departure Forms: ED Discharge - Pt. Copy, Patient Portal Self Enrollment Instructions: Laryngitis (DC) Diet: regular diet Activity: increase activity as tolerated Referrals: Artis Huerta MD [Primary Care Provider] - 1-5 Days Prescriptions: Azithromycin 500 mg PO DAILY #5 tab Dexlansoprazole [Dexilant] 30 mg PO DAILY #30 cap predniSONE [Prednisone] 20 mg PO DAILY #3 tab Home Medications: Ambulatory Orders Aripiprazole [Abilify] 30 mg PO BEDTIME 06/22/14 Trazodone HCl 100 mg PO BEDTIME 06/22/14 cloNAZepam [Klonopin] 0.5 mg PO BID 02/24/15 Lisinopril 10 mg PO DAILY 09/12/15 Aspirin [Aspirin Adult Low Dose] 81 mg PO DAILY #120 tab 08/15/16 OXcarbazepine [Trileptal] 300 mg PO BID 02/04/18 Spironolactone 25 mg PO BID 02/04/18 Nitroglycerin 0.4 mg Tab [Nitrostat] 1 tablet SL Q5MIN PRN #1 bottle 02/05/18 Omeprazole [Prilosec Cap] 20 mg PO ACBK #30 cap 02/05/18 Sucralfate Tab [Carafate Tab] 1 gm PO ACHS #40 tablet 02/05/18 Bvttfhaatty-Miodrrvivior-Uxjmv [Trelegy Ellipta 100-62.5-25 Mcg/INH] 1 aer IN DAILY #1 aer 07/11/18 Prednisone [Deltasone] 20 mg PO DAILY #5 tab 07/11/18 Cefuroxime Axetil [Ceftin] 500 mg PO Q12H 10 Days #20 tablet 08/08/18 Doxycycline Hyclate 100 mg PO BID 10 Days #20 tab 08/08/18 Azithromycin 500 mg PO DAILY #5 tab 09/16/18 Dexlansoprazole [Dexilant] 30 mg PO DAILY #30 cap 09/16/18 predniSONE [Prednisone] 20 mg PO DAILY #3 tab 09/16/18 Additional Instructions: the patient's a 58-year-old male presenting with what appears to be some laryngitis. The patient is going to be placed on azithromycin and prednisone with the first dose given here. Additionally I am going to add on Nexium for one month for the patient as he does have a history of some reflux issues and this may be contributing in a chronic form. I would like for him to get set up with a ear nose and throat doctor to let them have a look at his vocal cords. He is to see his primary care doctor to get this arranged. He should also hold the Zyrtec for at least 1 week as it is likely giving him some dry mouth. Additionally sleeping with a humidifier at night may help.. ER warnings were given for increasing worsening.
[2018-09-16 21:33] VITALS: BP 109/67; TEMP 98.2
[2018-09-16 22:49] VITALS: O2SAT 93
== END 2018-09-16 21:30 | disposition home or self-care (01) ==
LOC: ER 20:34
DX: J04.0 Acute laryngitis (principal); K21.9 Gastro-esophageal reflux disease without esophagitis; J44.9 Chronic obstructive pulmonary disease, unspecified; I25.2 Old myocardial infarction; I10 Essential (primary) hypertension; Z87.891 Personal history of nicotine dependence; Z79.899 Other long term (current) drug therapy; Z79.82 Long term (current) use of aspirin; Z88.5 Allergy status to narcotic agent; Z88.8 Allergy status to other drugs, medicaments and biological substances
CPT/HCPCS: J7512; Q0144

== ENCOUNTER 2018-09-21 16:21 | Observation (INO) | payer OTHER ==
[2018-09-21] MEDS ORDERED: ALBUTEROL SULFATE 2.5 MG/3 ML VIAL NEB ONE ×3 (16:34→17:45)
[2018-09-21] MEDS ORDERED: methylPREDNISolone SODIUM SUC 125 MG/2 ML VIAL IV ONE (16:34)
--- NOTE | 2018-09-21 16:55 | RAD ---
EXAM DESCRIPTION: Chest,1 View CLINICAL HISTORY: 58 years Male, sob COMPARISON: None. TECHNIQUE: AP portable chest. FINDINGS: Heart size is normal with normal pulmonary vascularity. Patchy partial volume loss or infiltrates of the lung bases with small right pleural effusion. Compared to previous study, aeration of the right lung base has improved. Some residual infiltrate in the peripheral right lower lobe and the costophrenic angle region remains. Follow-up is recommended to ensure complete clearance. No pulmonary mass or worrisome nodule. No pneumothorax. Abnormal posterior right ribs may be postoperative changes. There is pleural or extrapleural thickening bilaterally. IMPRESSION: Improving chest. See above. Electronically signed by: Jorge Vogt MD 09/21/2018 4:52 PM CDT
--- NOTE | 2018-09-21 17:05 | ED.PDOC ---
History of Present Illness - General Chief Complaint: Respiratory Problem Stated Complaint: shortness of breath Time Seen by Provider: 09/21/18 16:34 Source: patient Exam Limitations: no limitations - History of Present Illness Initial Comments: patient comes in today with onset of shortness of breath last night. Patient states his COPD has been bad for the last 24 hours. He always has a chronic cough productive of some yellow sputum. Patient denies any fever, chills, nasal congestion or sore throat. He tried 2 breathing treatments with his nebulizer with Duoneb and 2 episodes of use of his inhaler without improvement of his shortness of breath. Patient has some wheezing but no chest pain. Patient has not recently felt felt ill. Patient does not normally require oxygen. Patient has had a past acute MA but this does not feel like his heart. Patient has a past medical history significant for hypertension, COPD, coronary artery disease, and hypoglycemia. Patient quit smoking in 2008 Timing/Duration: 24 hours Severity: severe Activities at Onset: rest Possible Cause: frequent episodes Improving Factors: nothing Worsening Factors: movement Associated Symptoms: cough Allergies/Adverse Reactions: Allergies Codeine Allergy (Intermediate, Verified 02/04/18 22:13) vomiting, itch dizzy Meperidine [From Demerol HCl] Allergy (Intermediate, Verified 02/04/18 22:13) vomiting, dizzy itch Home Medications: Ambulatory Orders Aripiprazole [Abilify] 30 mg PO BEDTIME 06/22/14 Trazodone HCl 100 mg PO BEDTIME 06/22/14 cloNAZepam [Klonopin] 0.5 mg PO BID 02/24/15 Lisinopril 10 mg PO DAILY 09/12/15 Aspirin [Aspirin Adult Low Dose] 81 mg PO DAILY #120 tab 08/15/16 OXcarbazepine [Trileptal] 300 mg PO BID 02/04/18 Spironolactone 25 mg PO BID 02/04/18 Nitroglycerin 0.4 mg Tab [Nitrostat] 1 tablet SL Q5MIN PRN #1 bottle 02/05/18 Omeprazole [Prilosec Cap] 20 mg PO ACBK #30 cap 02/05/18 Sucralfate Tab [Carafate Tab] 1 gm PO ACHS #40 tablet 02/05/18 Egvbnmtoytf-Zkcghagvpjye-Inluz [Trelegy Ellipta 100-62.5-25 Mcg/INH] 1 aer IN DAILY #1 aer 07/11/18 Prednisone [Deltasone] 20 mg PO DAILY #5 tab 07/11/18 Cefuroxime Axetil [Ceftin] 500 mg PO Q12H 10 Days #20 tablet 08/08/18 Doxycycline Hyclate 100 mg PO BID 10 Days #20 tab 08/08/18 Azithromycin 500 mg PO DAILY #5 tab 09/16/18 Dexlansoprazole [Dexilant] 30 mg PO DAILY #30 cap 09/16/18 predniSONE [Prednisone] 20 mg PO DAILY #3 tab 09/16/18 Review of Systems - Review of Systems Constitutional: States: no symptoms reported. Denies: chills, fever, malaise EENTM: States: no symptoms reported. Denies: blurred vision, double vision, ear discharge, nose congestion Respiratory: States: see HPI, cough, short of breath, wheezing Cardiology: States: no symptoms reported. Denies: chest pain, edema, palpitations, syncope Gastrointestinal/Abdominal: States: no symptoms reported. Denies: abdominal pain, diarrhea, nausea Genitourinary: States: no symptoms reported Musculoskeletal: States: no symptoms reported Skin: States: no symptoms reported Past Medical History (General) - Patient Medical History Hx Seizures: No Hx Stroke: No Hx Dementia: No Hx Asthma: Yes Hx of COPD: Yes Hx Cardiac Disorders: Yes - [place] Hx Congestive Heart Failure: No Hx Pacemaker: No Hx Hypertension: Yes Hx Thyroid Disease: No Hx Diabetes: No Hx Gastroesophageal Reflux: Yes Hx Renal Disease: No Hx Cancer: No Hx of HIV: No Hx Hepatitis C: No Hx MRSA: No Surgical History: appendectomy - Vaccination History Hx Tetanus, Diphtheria Vaccination: No Hx Influenza Vaccination: Yes Hx Pneumococcal Vaccination: Yes - Social History Hx Tobacco Use: Yes Hx Chewing Tobacco Use: No Hx Alcohol Use: No Hx Substance Use: No Hx Substance Use Treatment: No Hx Depression: No Hx Physical Abuse: No Hx Emotional Abuse: No Hx Suspected Abuse: No - Female History Patient : No Family Medical History - Family History Mother Family History: No Known Living Status: Still Living Hx Family Hypertension: Yes Hx Family Stroke: Yes - dad Hx Cardiac Disease: Yes Hx Family Diabetes: Yes - parents Hx Family Cancer: Yes - Lung CA Physical Exam - Physical Exam General Appearance: Anxious, Obvious distress Eyes, Ears, Nose, Throat Exam: PERRL/EOMI, normal ENT inspection, TMs normal, pharynx normal Neck: non-tender, full range of motion, supple, normal inspection Respiratory: no accessory muscle use, decreased breath sounds, wheezing Cardiovascular/Chest: normal peripheral pulses, regular rate, rhythm, no edema, no murmur Peripheral Pulses: radial,right: 2+, radial,left: 2+ Gastrointestinal/Abdominal: normal bowel sounds, non tender, soft Neurologic: alert, oriented x 3 Progress - Progress Progress: 09/21/18 18:20 recheck on lungs has occasional scattered wheezing after treatment with increased air flow. O2 sats are still good at 98% on RA but still complaining of some SOB despite now 3 treatments here and 4 at home. Patient has also some chest pain from the tightness. He is adamant it does not feel like his angina only like his COPD. Toradol trial ordered. 09/21/18 19:11 called on warren Espinoza [employer] and will admit for observation secondary to failure to clear despite 3 treatments here and 4 at home with continued SOB - Results/Orders Results/Orders: 09/21/18 16:45 EKG STAT Laboratory Results WBC 9.0 K/mm3 (4.8-10.8) 09/21/18 16:47 RBC 4.96 M/mm3 (4.70-6.10) 09/21/18 16:47 Hgb 14.6 gm/dL (14.0-18.0) 09/21/18 16:47 Hct 43.8 % (42.0-52.0) 09/21/18 16:47 MCV 88.4 fl (80.0-94.0) 09/21/18 16:47 MCH 29.5 pg (27.0-31.0) 09/21/18 16:47 MCHC 33.4 g/dL (33.0-37.0) 09/21/18 16:47 RDW 16.2 % (11.5-14.5) H 09/21/18 16:47 Plt Count 223 K/mm3 (130-400) 09/21/18 16:47 MPV 7.1 fl (7.40-10.4) L 09/21/18 16:47 Absolute Neuts (auto) 6.50 K/uL (1.8-6.8) 09/21/18 16:47 Absolute Lymphs (auto) 1.60 K/uL (1.0-3.4) 09/21/18 16:47 Absolute Monos (auto) 0.60 K/uL (0.2-0.8) 09/21/18 16:47 Absolute Eos (auto) 0.20 K/uL (0.0-0.4) 09/21/18 16:47 Absolute Basos (auto) 0.00 K/uL (0.0-0.1) 09/21/18 16:47 Neutrophils % 72.4 % (42.0-78.0) 09/21/18 16:47 Lymphocytes % 17.5 % (20.0-50.0) L 09/21/18 16:47 Monocytes % 7.2 % (2.0-9.0) 09/21/18 16:47 Eosinophils % 2.7 % (1.0-5.0) 09/21/18 16:47 Basophils % 0.2 % (0.0-2.0) 09/21/18 16:47 Sodium 139 mmol/L (135-145) 09/21/18 16:47 Potassium 3.4 mmol/L (3.6-5.0) L 09/21/18 16:47 Chloride 103 mmol/L (101-111) 09/21/18 16:47 Carbon Dioxide 25 mmol/L (21-31) 09/21/18 16:47 Anion Gap 14.4 (12-18) 09/21/18 16:47 BUN 11 mg/dL (7-18) 09/21/18 16:47 Creatinine 1.02 mg/dL (0.6-1.3) 09/21/18 16:47 BUN/Creatinine Ratio 10.8 (10-20) 09/21/18 16:47 Random Glucose 99 mg/dL (70-105) 09/21/18 16:47 Serum Osmolality 277.0 mOsm/L (275-295) 09/21/18 16:47 Calcium 8.8 mg/dL (8.4-10.2) 09/21/18 16:47 Total Bilirubin 0.5 mg/dL (0.2-1.0) 09/21/18 16:47 AST 19 IU/L (10-42) 09/21/18 16:47 ALT 19 IU/L (10-60) 09/21/18 16:47 Alkaline Phosphatase 101 IU/L (42-121) 09/21/18 16:47 Creatine Kinase 103 IU/L (38-174) 09/21/18 16:47 CK-MB (CK-2) 3.9 ng/mL (0.0-4.4) 09/21/18 16:47 CK-MB (CK-2) % Not Reportable 09/21/18 16:47 Troponin I < 0.02 ng/mL (0.01-0.05) 09/21/18 16:47 Serum Total Protein 7.4 gm/dL (6.4-8.2) 09/21/18 16:47 Albumin 4.0 g/dl (3.2-5.5) 09/21/18 16:47 Globulin 3.4 gm/dL (2.3-3.5) 09/21/18 16:47 Albumin/Globulin Ratio 1.2 (1.1-1.9) 09/21/18 16:47 Patient Name: CHARLENE SCHWARTZ Gender: Male Date of : 1960 Referring Physician: BELEN REYES Organization: [facility] Accession Number: [id number] Requested Date: September 21, 2018 16:34 Report Status: Final Requested Procedure: 1 Procedure Description: Chest,1 View Modality: CR Findings Reporting MD: Jorge Vogt Fellow MD: Not available Dictation Time: Customer Sales Advisor: Not available Proposition Player Date: EXAM DESCRIPTION: Chest,1 View CLINICAL HISTORY: 58 years Male, sob COMPARISON: None. TECHNIQUE: AP portable chest. FINDINGS: Heart size is normal with normal pulmonary vascularity. Patchy partial volume loss or infiltrates of the lung bases with small right pleural effusion. Compared to previous study, aeration of the right lung base has improved. Some residual infiltrate in the peripheral right lower lobe and the costophrenic angle region remains. Follow-up is recommended to ensure complete clearance. No pulmonary mass or worrisome nodule. No pneumothorax. Abnormal posterior right ribs may be postoperative changes. There is pleural or extrapleural thickening bilaterally. IMPRESSION: Improving chest. See above. - EKG/XRAY/CT EKG: Sinus, no ST T wave changes, Unchanged from - 06/2018 Comments: frequent PVC Hr of 95 old anterior infarct Departure - Departure Clinical Impression: COPD exacerbation Disposition: Admit Patient Condition: Fair Departure Forms: ED Discharge - Pt. Copy, Patient Portal Self Enrollment Referrals: Artis Huerta MD [Primary Care Provider] - 1-2 Weeks Home Medications: Ambulatory Orders Aripiprazole [Abilify] 30 mg PO BEDTIME 06/22/14 Trazodone HCl 100 mg PO BEDTIME 06/22/14 cloNAZepam [Klonopin] 0.5 mg PO BID 02/24/15 Lisinopril 10 mg PO DAILY 09/12/15 Aspirin [Aspirin Adult Low Dose] 81 mg PO DAILY #120 tab 08/15/16 OXcarbazepine [Trileptal] 300 mg PO BID 02/04/18 Spironolactone 25 mg PO BID 02/04/18 Nitroglycerin 0.4 mg Tab [Nitrostat] 1 tablet SL Q5MIN PRN #1 bottle 02/05/18 Omeprazole [Prilosec Cap] 20 mg PO ACBK #30 cap 02/05/18 Sucralfate Tab [Carafate Tab] 1 gm PO ACHS #40 tablet 02/05/18 Vxrshbxqvxg-Buvlregvpoqz-Vqhjm [Trelegy Ellipta 100-62.5-25 Mcg/INH] 1 aer IN DAILY #1 aer 07/11/18 Prednisone [Deltasone] 20 mg PO DAILY #5 tab 07/11/18 Cefuroxime Axetil [Ceftin] 500 mg PO Q12H 10 Days #20 tablet 08/08/18 Doxycycline Hyclate 100 mg PO BID 10 Days #20 tab 08/08/18 Azithromycin 500 mg PO DAILY #5 tab 09/16/18 Dexlansoprazole [Dexilant] 30 mg PO DAILY #30 cap 09/16/18 predniSONE [Prednisone] 20 mg PO DAILY #3 tab 09/16/18 Decision To Admit - Decistion To Admit Decision to Admit Reason: Admit from ER Decision to Admit Date: 09/21/18 Decision to Admit Time: 19:12
[2018-09-21] MEDS ORDERED: KETOROLAC TROMETHAMINE INJ 30 MG/ML VIAL IV ONE (18:17)
[2018-09-21] MEDS ORDERED: traMADol HCL 50 MG TAB PO ONE (19:13)
[2018-09-21] MEDS ORDERED: NYSTATIN SUSPENSION 5 ML UD MT ONE (19:13)
--- NOTE | 2018-09-21 21:46 | HP ---
SUPERVISING PHYSICIAN: Sabrina Macdonald MD CHIEF COMPLAINT: Shortness of breath. HISTORY OF PRESENT ILLNESS: This is a 58-year-old male patient who has a significant history of chronic obstructive pulmonary disease. He has had some shortness of breath over the last few days, but it worsened last night to the point that he had to come into the Emergency Room today. He said his lungs hurt and was extremely short of breath. He had no appetite. He did several treatments at home and they did not help. He also used his inhaler and, again, that did not help. He denied any chills or fever, but he did complain of some wheezing. She also denied any chest pain although he does have a history of an acute myocardial infarction in 1988. In the Emergency Room, his vital signs showed a temperature of 98.1, heart rate that went as high as 103 and is now 91, blood pressure 140/81, respiratory rate 22, O2 saturation 92%. His lab showed CBC basically within normal limits. Chemistry was unremarkable except for his potassium was slightly low at 3.4. Chest x-ray showed patchy partial volume loss or infiltrates at the lung base, a small right pleural effusion. Compared to a previous study, his aeration has improved and the right lung base has improved. Followup is recommended. No pulmonary mass or worrisome nodules, nor pneumothorax. I was called for hospital admission. PAST MEDICAL HISTORY: 1. Hypertension. 2. Chronic obstructive pulmonary disease. 3. Hyperlipidemia. 4. Peripheral vascular disease. 5. Gastroesophageal reflux disease. 6. Myocardial infarction in 1988. PAST SURGICAL HISTORY: 1. Appendectomy. 2. Cardiac cath. OUTPATIENT MEDICATIONS: Per the EMR and awaiting verification. FAMILY HISTORY: Positive for hypertension and lung cancer. SOCIAL HISTORY: He lives in [place]. He is disabled. He sees Dr. Huerta at [facility]. He quit smoking in 2008, but prior to that, he was smoking 4 packs of cigarettes daily for many years. He previously used alcohol quite extensively, but has not drank since 2000 and he denies any illicit drug use. REVIEW OF SYSTEMS: GENERAL: Negative for fever, chills or weight changes. HEENT: Negative for sinus symptoms, ear pain, vision changes or sore throat. RESPIRATORY: As per history of present illness. CARDIAC: Negative for chest pain, palpitations or tachycardia. GASTROINTESTINAL: Negative for nausea, vomiting, diarrhea, constipation. GENITOURINARY: Negative for hematuria, dysuria or polyuria. MUSCULOSKELETAL: Positive for some chronic back pain, but negative for arthralgias, myalgias. NEUROLOGIC: Negative for headache, dizziness or seizures. PHYSICAL EXAMINATION: VITAL SIGNS: Temperature 97.5. Heart rate 104. Blood pressure 131/76. Respiratory rate 22. O2 saturation 92% on 2 liters nasal cannula. GENERAL: This is a 58-year-old obese male patient who is lying in his hospital bed. He is in mild respiratory distress. HEENT: Normocephalic, atraumatic. Pupils are equal and reactive. Oropharynx is clear. NECK: Supple without mass. RESPIRATORY: Diminished breath sounds throughout with scattered expiratory wheezing and a few scattered rhonchi. He is tachypneic and has to speak in short phrases. CHEST: There is equal rise and fall of the chest with inspiration and expiration. CARDIOVASCULAR: Regular rate and rhythm. At times, he is slightly tachycardic. GASTROINTESTINAL: Abdomen is soft, nondistended, nontender. Bowel sounds are positive. EXTREMITIES: No cyanosis, clubbing or edema. NEUROLOGIC: Awake, alert and oriented times three. Cranial nerves II-XII are grossly intact. LABORATORY: Labs and films are as per history of present illness. IMPRESSION: 1. Acute exacerbation of chronic obstructive pulmonary disease with tachypnea and wheezing that was not improved after multiple nebulizer treatments in the Emergency Room. 2. Mild hypokalemia. 3. Hypertension. 4. Gastroesophageal reflux disease. 5. Peripheral vascular disease. 6. History of myocardial infarction in 1988. PLAN: We will place the patient in Observation. I have started him on aggressive pulmonary hygiene as well as put him on azithromycin and Rocephin. I will repeat his lab in the morning. He will get scheduled and p.r.n. breathing treatments. I have also given him a taper of IV steroids. We will continue his home medications once they are verified. We will follow the patient closely and treat as needed. #[id number] [facility]
[2018-09-21] MEDS ORDERED: SODIUM CHLORIDE 0.9% (FLUSH) 10 ML SYG IV PRN (21:55)
[2018-09-21] MEDS ORDERED: ALBUTEROL SULFATE 2.5 MG/3 ML VIAL NEB PRN (21:55)
[2018-09-21] MEDS ORDERED: IV SET AND CAP CHANGE INJ INJ SCH (22:00)
[2018-09-21] MEDS ORDERED: ENOXAPARIN SODIUM 40 MG/0.4 ML SYG SUBCU SCH (22:30)
[2018-09-21] MEDS ORDERED: SODIUM CHL 0.9% 50ML MIN-BAG+ 50 ML IVPB ONE (23:16)
[2018-09-21] MEDS ORDERED: cefTRIAXone SODIUM 1 GM VIAL ONE (23:17)
[2018-09-21] MEDS: cefTRIAXone SODIUM 1 GM in SODIUM CHL 0.9% 50ML MIN-BAG+ 50 ML IVPB SCH (23:20)
[2018-09-22] MEDS ORDERED: AZITHROMYCIN IV 500 MG VIAL IVPB ONE ×2 (00:11→20:10)
[2018-09-22] MEDS ORDERED: SODIUM CHLORIDE 0.9% 250ML 250 ML ONE ×2 (00:11→20:07)
[2018-09-22] MEDS: methylPREDNISolone SODIUM SUC 125 MG/2 ML VIAL IV SCH ×2 (00:24→05:34)
[2018-09-22] MEDS: AZITHROMYCIN IV 500 MG in SODIUM CHLORIDE 0.9% 250ML 250 ML IVPB SCH (00:25)
[2018-09-22] MEDS ORDERED: PANTOPRAZOLE SODIUM IV 40 MG VIAL IV SCH (06:30)
[2018-09-22] MEDS: IPRATROPIUM/ALBUTEROL 3 ML VIAL INH SCH ×4 (07:15→20:12)
[2018-09-22] MEDS ORDERED: KETOROLAC TROMETHAMINE INJ 30 MG/ML VIAL IV ONE (07:19)
--- NOTE | 2018-09-22 07:35 | RAD ---
EXAM DESCRIPTION: Chest,2 Views: CR/DR CLINICAL HISTORY: 58 years Male Pneumonia COMPARISON: Single view chest x-ray 09/21/2018. Single view chest x-ray 07/11/2018. TECHNIQUE: Two views. PA and Lateral. FINDINGS: Lungs: Hyperinflation bilaterally. Chronic bibasilar densities more on the right with minimal volume loss unchanged. No acute infiltrate. Pleural spaces: No effusion or pneumothorax bilaterally. Chronic pleural thickening in the right base. Monitoring leads on the chest. Heart: Upper normal size and stable. Pulmonary Vascularity: Not increased. Mediastinum: Not widened. Aorta: Unremarkable. Bony Thorax/Spine: No acute bony thoracic abnormalities. Unchanged. IMPRESSION: Air trapping bilaterally with mild volume loss in the right lower lobe stable. No acute infiltrate or new infiltrate. Heart size upper normal range is unchanged. Pulmonary vascularity unremarkable. Electronically signed by: Alli Ferreira MD 09/22/2018 7:32 AM CDT
[2018-09-22] MEDS: SODIUM CHLORIDE 0.9% (FLUSH) 10 ML SYG IV SCH ×2 (09:18→20:55)
[2018-09-22] MEDS: methylPREDNISolone SODIUM SUC 40 MG/ML VIAL IV SCH ×2 (12:16→17:49)
[2018-09-22] MEDS: BUDESONIDE NEBS 0.5 MG/2 ML VIAL NEB SCH ×2 (13:28→20:12)
[2018-09-22] MEDS: LOSARTAN POTASSIUM 100 MG TAB PO SCH (14:06)
[2018-09-22] MEDS: FUROSEMIDE 40 MG TAB PO SCH (14:08)
[2018-09-22] MEDS: OXcarbazepine 300 MG TAB PO SCH ×2 (14:08→20:55)
[2018-09-22] MEDS: CETIRIZINE HCL 10 MG TAB PO SCH (14:08)
[2018-09-22] MEDS ORDERED: KETOROLAC TROMETHAMINE INJ 30 MG/ML VIAL IV PRN (16:19)
[2018-09-22] MEDS ORDERED: SODIUM CHL 0.9% 50ML MIN-BAG+ 50 ML IVPB ONE (20:07)
[2018-09-22] MEDS ORDERED: PANTOPRAZOLE SODIUM TAB 40 MG PO ONE (20:08)
[2018-09-22] MEDS ORDERED: cefTRIAXone SODIUM 1 GM VIAL ONE (20:09)
--- NOTE | 2018-09-22 20:49 | PN ---
DATE: 09/22/18 SUPERVISING PHYSICIAN: wOen Childers M.D. SUBJECTIVE: The patient notes that he is feeling tired. He has a significant cough and is short of breath. He is denying any fevers or chills. OBJECTIVE: VITAL SIGNS: Temperature 98.6, pulse 74, blood pressure 129/76, respirations 20, satting 95% on room air. CHEST: Lung sounds are diminished throughout with just a slight inspiratory and expiratory wheezing. HEART: Regular rate and rhythm. ABDOMEN: Soft, non-tender. Positive bowel sounds. EXTREMITIES: Without any clubbing, cyanosis or edema. NEUROLOGIC: He is alert and oriented times three. LABORATORY: White count shows to be at 8,700. Differential does show a left shift. Chemistries show normal electrolytes with BUN 14, creatinine 0.83, glucose 165. Liver functions are all within normal limits. RADIOLOGY: Chest x-ray per radiology interpretation shows air trapping bilaterally with mild volume loss in the right lower lobe, stable. No acute infiltrate or new infiltrate. Heart size is in the upper range of normal with some pulmonary vasculature unremarkable. ASSESSMENT: 1. Acute exacerbation of chronic obstructive pulmonary disease requiring ongoing aggressive pulmonary hygiene and IV corticosteroids for continued exacerbation. 2. Hypokalemia, resolved. 3. Hypertension, stable. 4. Gastroesophageal reflux disease. 5. Peripheral vascular disease. 6. History of myocardial infarction in 1988. PLAN: Will continue with aggressive pulmonary hygiene and antibiotic coverage with azithromycin and Rocephin. I went ahead and started him on some Pulmicort. Will resume his home medications. He continues on Solu-Medrol 40 mg IV every 6 hours for an additional 3 doses. Anticipation of probably going to p.o. prednisone on Tuesday. Both x-rays and labs are showing to be fairly stable. Will hold off on any repeat studies. Will anticipate hopefully being able to discharge tomorrow. Until then will continue to monitor and treat as needed. #[id number] [facility]
[2018-09-22] MEDS: ARIPiprazole 5 MG TAB PO SCH (20:53)
[2018-09-22] MEDS: traZODone HCL 50 MG TAB PO SCH (20:53)
[2018-09-22] MEDS: ENOXAPARIN SODIUM 40 MG/0.4 ML SYG SUBCU SCH (20:54)
[2018-09-22] MEDS: POTASSIUM CHLORIDE 10 MEQ TAB PO SCH (20:55)
[2018-09-22] MEDS: PRIMIDONE 50 MG TAB PO SCH (21:00)
[2018-09-22] MEDS: cefTRIAXone SODIUM 1 GM in SODIUM CHL 0.9% 50ML MIN-BAG+ 50 ML IVPB SCH (22:08)
[2018-09-23] MEDS: methylPREDNISolone SODIUM SUC 40 MG/ML VIAL IV SCH ×4 (00:05→23:49)
[2018-09-23] MEDS: AZITHROMYCIN IV 500 MG in SODIUM CHLORIDE 0.9% 250ML 250 ML IVPB SCH ×2 (00:05→23:51)
[2018-09-23] MEDS: PANTOPRAZOLE SODIUM TAB 40 MG PO SCH (06:39)
[2018-09-23] MEDS: IPRATROPIUM/ALBUTEROL 3 ML VIAL INH SCH ×4 (08:14→19:36)
[2018-09-23] MEDS: BUDESONIDE NEBS 0.5 MG/2 ML VIAL NEB SCH ×2 (08:14→19:36)
[2018-09-23] MEDS: CETIRIZINE HCL 10 MG TAB PO SCH (10:20)
[2018-09-23] MEDS: POTASSIUM CHLORIDE 10 MEQ TAB PO SCH ×2 (10:20→20:52)
[2018-09-23] MEDS: LOSARTAN POTASSIUM 100 MG TAB PO SCH (10:20)
[2018-09-23] MEDS: FUROSEMIDE 40 MG TAB PO SCH (10:20)
[2018-09-23] MEDS: OXcarbazepine 300 MG TAB PO SCH ×2 (10:20→20:53)
[2018-09-23] MEDS: ASPIRIN (ENTERIC COATED) 81 MG TAB PO SCH (10:20)
[2018-09-23] MEDS: SODIUM CHLORIDE 0.9% (FLUSH) 10 ML SYG IV SCH ×2 (10:22→20:53)
[2018-09-23] MEDS: PRIMIDONE 50 MG TAB PO SCH ×2 (10:30→20:53)
--- NOTE | 2018-09-23 18:52 | PN ---
DATE: 09/23/18 SUPERVISING PHYSICIAN: Owen Childers M.D. SUBJECTIVE: The patient still feels exhausted and still having some shortness of breath with exertional effort. He has not had any fevers or chills. No nausea or vomiting or other complaints. He does have some pain in his chest with coughing, but it is reproducible. OBJECTIVE: VITAL SIGNS: Temperature 97.5, pulse 84, blood pressure 114/67, respirations 18, satting 93% on nasal cannula at 2 liters. CHEST: Lung sounds continue to be diminished with some continued inspiratory and expiratory wheezing. No rales or rhonchi. HEART: Regular rate and rhythm. ABDOMEN: Soft, non-tender. Positive bowel sounds. EXTREMITIES: Without any clubbing, cyanosis or edema. NEUROLOGIC: He is alert and oriented times three. LABORATORY: No additional laboratory today. No additional radiographic studies. ASSESSMENT: 1. Acute exacerbation of chronic obstructive pulmonary disease requiring ongoing aggressive pulmonary hygiene and IV corticosteroids for continued exacerbation. 2. Hypokalemia, resolved. 3. Hypertension, stable. 4. Gastroesophageal reflux disease. 5. Peripheral vascular disease. 6. History of myocardial infarction in 1988. PLAN: Will continue an additional 24 hours of ongoing aggressive pulmonary hygiene and antibiotic coverage with azithromycin and Rocephin. He will continue on Solu-Medrol as he continues to have some wheezing as well as he is on Pulmicort. Anticipate hopefully being able to discharge later tomorrow. Until he can transition back to outpatient management will continue to monitor and treat as needed. #[id number] [facility]
[2018-09-23] MEDS ORDERED: SODIUM CHLORIDE 0.9% 250ML 250 ML ONE (20:06)
[2018-09-23] MEDS ORDERED: SODIUM CHL 0.9% 50ML MIN-BAG+ 50 ML IVPB ONE (20:06)
[2018-09-23] MEDS ORDERED: cefTRIAXone SODIUM 1 GM VIAL ONE (20:07)
[2018-09-23] MEDS ORDERED: AZITHROMYCIN IV 500 MG VIAL IVPB ONE (20:08)
[2018-09-23] MEDS: ARIPiprazole 5 MG TAB PO SCH (20:48)
[2018-09-23] MEDS: traZODone HCL 50 MG TAB PO SCH (20:50)
[2018-09-23] MEDS: ENOXAPARIN SODIUM 40 MG/0.4 ML SYG SUBCU SCH (20:52)
[2018-09-23] MEDS: cefTRIAXone SODIUM 1 GM in SODIUM CHL 0.9% 50ML MIN-BAG+ 50 ML IVPB SCH (21:57)
[2018-09-24] MEDS: PANTOPRAZOLE SODIUM TAB 40 MG PO SCH (06:04)
[2018-09-24] MEDS: OXcarbazepine 300 MG TAB PO SCH (08:06)
[2018-09-24] MEDS: POTASSIUM CHLORIDE 10 MEQ TAB PO SCH (08:06)
[2018-09-24] MEDS: ASPIRIN (ENTERIC COATED) 81 MG TAB PO SCH (08:07)
[2018-09-24] MEDS: LOSARTAN POTASSIUM 100 MG TAB PO SCH (08:07)
[2018-09-24] MEDS: CETIRIZINE HCL 10 MG TAB PO SCH (08:07)
[2018-09-24] MEDS: FUROSEMIDE 40 MG TAB PO SCH (08:07)
[2018-09-24] MEDS: PRIMIDONE 50 MG TAB PO SCH (08:07)
[2018-09-24] MEDS: SODIUM CHLORIDE 0.9% (FLUSH) 10 ML SYG IV SCH (08:08)
[2018-09-24] MEDS: BUDESONIDE NEBS 0.5 MG/2 ML VIAL NEB SCH (08:19)
[2018-09-24] MEDS: IPRATROPIUM/ALBUTEROL 3 ML VIAL INH SCH ×2 (08:19→11:30)
[2018-09-24 10:13] VITALS: BP 120/67; TEMP 97.7; O2SAT 97
== END 2018-09-24 11:40 | disposition home or self-care (01) ==
LOC: ER 16:21 → MS 21:45
PROVIDERS: ADMIT Nurse Practitioner Acute Care; ATTEND Nurse Practitioner Family
DX: J44.1 Chronic obstructive pulmonary disease with (acute) exacerbation (principal); E87.6 Hypokalemia; I10 Essential (primary) hypertension; K21.9 Gastro-esophageal reflux disease without esophagitis; I73.9 Peripheral vascular disease, unspecified; I25.10 Atherosclerotic heart disease of native coronary artery without angina pectoris; I25.2 Old myocardial infarction; R07.89 Other chest pain; E78.5 Hyperlipidemia, unspecified; I49.3 Ventricular premature depolarization; Z79.51 Long term (current) use of inhaled steroids; Z79.82 Long term (current) use of aspirin; Z79.899 Other long term (current) drug therapy; Z88.6 Allergy status to analgesic agent; Z87.891 Personal history of nicotine dependence; Z90.49 Acquired absence of other specified parts of digestive tract; Z82.49 Family history of ischemic heart disease and other diseases of the circulatory system; Z80.1 Family history of malignant neoplasm of trachea, bronchus and lung
CPT/HCPCS: 96366 ×2; 96367; 96365; 96375 ×2; 96376 ×2; 96372 ×3; J7611 ×3; J0696 ×3; J1885 ×2; J1030 ×6; J2930 ×3; J7050 ×6; J1650 ×3; J7626 ×4; J0456 ×3; J7620 ×9; 82553; 80053 ×2; 36415 ×2; 85025 ×2; 82550; 83735; 84484; 71045; 71046; 94640 ×12; 94667; 94760 ×2; 94668 ×2; 99406; 94762 ×3; 99285; 93005; G0378

== ENCOUNTER → 2018-12-11 | Outpatient (CLI) | payer OTHER ==
--- NOTE | 2018-12-12 10:12 | MRI ---
EXAM DESCRIPTION: Lumbar Spine w/o Contrast CLINICAL HISTORY: LOW BACK PAIN COMPARISON: Correlation is made with x-ray images of the lumbar spine September 29, 2015 TECHNIQUE: MRI of the lumbar spine is performed according to our usual protocol with axial and sagittal multi sequence imaging. FINDINGS: Sagittal T2 images reveal decreased signal intensity consistent with desiccation of the intervertebral discs at levels L2-3 through L5-S1. Posterior annular bulges are not a prominent finding. No prevertebral mass or aneurysm. Lower cord and conus appear normal. Tip of the conus is behind L2. Sagittal T1 images reveal benign marrow signal characteristics. Few scattered small hemangiomas. Mild Modic type II changes around degenerated L4-5 disc. Normal T1 signal intensity and appearance of the lower cord and conus. Sagittal STIR images are negative for marrow edema within the vertebral bodies or posterior elements. No paraspinous fluid collection or cystic lesion. Axial T1 and T2-weighted images were obtained to evaluate the disc levels. T12-L1: No posterior annular bulge or herniation. No spinal stenosis or neural foraminal narrowing. Facets appear normal. Normal appearance of the lower cord and conus. L1-2: No posterior annular bulge or herniation. No spinal stenosis or neural foraminal narrowing. Moderate facet hypertrophic changes bilaterally. L2-3: Minimal diffuse posterior annular bulge without focal herniation. No spinal stenosis or neural foraminal narrowing. Moderate facet hypertrophic changes bilaterally. L3-4: Mild diffuse posterior annular bulge without spinal stenosis or significant neural foraminal narrowing. Facets appear mildly hypertrophic. There is mild narrowing of subarticular recesses bilaterally. L4-5: Mild diffuse posterior annular bulge with bilateral lateral accentuation. No spinal stenosis. Neural foraminal narrowing is mild bilaterally. Facets appear mildly hypertrophic and there is moderate narrowing of subarticular recesses bilaterally crowding the descending L5 nerve roots. L5-S1: Minimal diffuse posterior annular bulge without focal herniation. No spinal stenosis or significant neural foraminal narrowing marked facet hypertrophic spurring is seen with mild narrowing of subarticular recesses but no nerve root compression. Upper sacrum appears intact. No retroperitoneal mass or aneurysm. IMPRESSION: Advanced facet degenerative changes at L5-S1. Negative for spinal stenosis or acute appearing disc herniation. Electronically signed by: Jorge Vogt MD 12/12/2018 10:10 AM CDT
== END ==
LOC: MRI 13:43
PROVIDERS: ATTEND Family Medicine
DX: M51.37 Other intervertebral disc degeneration, lumbosacral region (principal)

== ENCOUNTER → 2018-12-27 | Outpatient (CLI) | payer OTHER | LOC: LAB.O 14:20 | PROVIDERS: ATTEND Urology | DX: R97.20 Elevated prostate specific antigen [PSA] (principal) ==

== ENCOUNTER → 2019-01-02 | Outpatient (CLI) | payer OTHER | LOC: RESP 10:11 | PROVIDERS: ATTEND Family Medicine | DX: R00.1 Bradycardia, unspecified (principal) ==

== ENCOUNTER → 2019-01-30 | Outpatient (CLI) | payer OTHER | LOC: ECHO 15:20 | PROVIDERS: ATTEND Family Medicine | DX: R00.8 Other abnormalities of heart beat (principal) ==

== ENCOUNTER → 2019-02-05 | Outpatient (CLI) | payer OTHER | LOC: RESP 10:03 | PROVIDERS: ATTEND Family Medicine | DX: R00.8 Other abnormalities of heart beat (principal); I48.91 Unspecified atrial fibrillation ==

== ENCOUNTER 2019-03-17 17:59 | Inpatient (IN) | payer OTHER ==
[2019-03-17] MEDS ORDERED: MORPHINE SULFATE INJ 10 MG/ML VIAL IV ONE (18:21)
[2019-03-17] MEDS ORDERED: ASPIRIN (CHEWABLE) 81 MG TAB PO ONE ×2 (18:21→18:49)
[2019-03-17] MEDS ORDERED: ONDANSETRON INJ 4 MG/2 ML VIAL IV ONE (18:21)
[2019-03-17] MEDS ORDERED: SODIUM CHLORIDE 0.9% 1000ML 1,000 ML IVS ONE (18:21)
--- NOTE | 2019-03-17 18:26 | ED.PDOC ---
History of Present Illness - General Chief Complaint: Chest Pain/TX Stated Complaint: Chest pain Time Seen by Provider: 03/17/19 18:16 - History of Present Illness Initial Comments: 58 yo M PMH HTN COPD presents to ED at bedside c/o chest pain sob radiating to left arm that began at home while watching television today. Denies fever chills nausea vomiting diarrhea admits chest pain sob denies diaphoresis. No change in diet rest bowel or bladder pain denies smoking admits occasional drinking admits FH HTN DM has PMD Dr. Huerta for follow up. No other c/o today. Allergies/Adverse Reactions: Allergies Codeine Allergy (Intermediate, Verified 03/17/19 18:14) Other vomiting, itch dizzy Meperidine [From Demerol HCl] Allergy (Intermediate, Verified 03/17/19 18:14) Other vomiting, dizzy itch Home Medications: Ambulatory Orders Trazodone HCl 100 mg PO BEDTIME 06/22/14 cloNAZepam [Klonopin] 0.5 mg PO DAILY 02/24/15 Aspirin [Aspirin Adult Low Dose] 81 mg PO DAILY #120 tab 08/15/16 OXcarbazepine [Trileptal] 300 mg PO BID 02/04/18 Nitroglycerin 0.4 mg Tab [Nitrostat] 1 tablet SL Q5MIN PRN #1 bottle 02/05/18 Cetirizine HCl [Cetirizine Hydrochloride] 10 mg PO DAILY 09/22/18 Clonazepam 0.25 mg PO BEDTIME 09/22/18 Furosemide Tab [Lasix Tab] 40 mg PO DAILY 09/22/18 Ipratropium-Albuterol [Combivent Respimat 20-100 Mcg/Act] 120 puff IN DAILY 09/22/18 Losartan Potassium 50 mg PO DAILY 09/22/18 Potassium Chloride [Potassium Chloride ER] 10 meq PO BID 09/22/18 Primidone 50 mg PO BID 09/22/18 Tramadol HCl 50 mg PO TID PRN 09/22/18 Amoxicillin & Pot Clavulanate [Augmentin Tab] 875 mg PO BID #12 tab 09/24/18 Methylprednisolone [Medrol Dose Kael] 4 mg PO DAILY 6 Days #21 tab 09/24/18 Review of Systems - Review of Systems Constitutional: States: no symptoms reported EENTM: States: no symptoms reported Respiratory: States: short of breath Cardiology: States: chest pain Gastrointestinal/Abdominal: States: no symptoms reported Genitourinary: States: no symptoms reported Musculoskeletal: States: no symptoms reported Skin: States: no symptoms reported Neurological: States: no symptoms reported Endocrine: States: no symptoms reported Hematologic/Lymphatic: States: no symptoms reported All other Systems: Reviewed and Negative Past Medical History (General) - Patient Medical History Hx Seizures: No Hx Stroke: No Hx Dementia: No Hx Asthma: Yes Hx of COPD: Yes Hx Cardiac Disorders: Yes - [place] Hx Congestive Heart Failure: No Hx Pacemaker: No Hx Hypertension: Yes Hx Thyroid Disease: No Hx Diabetes: No Hx Gastroesophageal Reflux: Yes Hx Renal Disease: No Hx Cancer: No Hx of HIV: No Hx Hepatitis C: No Hx MRSA: No - Vaccination History Hx Tetanus, Diphtheria Vaccination: No Hx Influenza Vaccination: Yes - 2018 Hx Pneumococcal Vaccination: Yes - Social History Hx Tobacco Use: Yes - Quit 2008 Hx Chewing Tobacco Use: No Hx Alcohol Use: Yes - Quit 2008 Hx Substance Use: No Hx Substance Use Treatment: No Hx Depression: No Hx Physical Abuse: No Hx Emotional Abuse: No Hx Suspected Abuse: No - Female History Patient : No Family Medical History - Family History Mother Family History: No Known Living Status: Still Living Hx Family Hypertension: Yes Hx Family Stroke: Yes - dad Hx Cardiac Disease: Yes Hx Family Diabetes: Yes - parents Hx Family Cancer: Yes - Lung CA Physical Exam - Physical Exam General Appearance: Other - uncomfortable Eyes, Ears, Nose, Throat Exam: normal ENT inspection Neck: non-tender, full range of motion Respiratory: normal breath sounds Cardiovascular/Chest: regular rate, rhythm Gastrointestinal/Abdominal: non tender, soft Extremity: normal range of motion, non-tender Neurologic: no motor/sensory deficits Skin Exam: normal color, warm/dry Progress - Progress Progress: 03/17/19 18:31 A/P-Chest Pain, COPD 1.iv bolus morphine telemetry pulse ox cxr cbc cmp trop urinalysis ekg reassess 03/17/19 18:49 Chest pain improving after morphine will add decadron and duoneb EKG-non specific TW changes no STEMI frequent PVCs will repeat 03/17/19 19:50 repear EKG at 07:17pm-non specific TW changes No STEMI occasional PVCs Laboratory Tests 03/17/19 03/17/19 03/17/19 18:21 18:21 18:21 WBC 8.2 RBC 4.42 L Hgb 13.3 L Hct 39.7 L MCV 89.7 MCH 30.1 MCHC 33.5 RDW 14.7 H Plt Count 180 MPV 7.1 L Absolute Neuts (auto) 5.80 Absolute Lymphs (auto) 1.30 Absolute Monos (auto) 0.70 Absolute Eos (auto) 0.20 Absolute Basos (auto) 0.00 Neutrophils % 71.7 Lymphocytes % 16.3 L Monocytes % 8.9 Eosinophils % 2.7 Basophils % 0.4 Sodium 140 Potassium 3.3 L Chloride 99 L Carbon Dioxide 32 H Anion Gap 12.3 BUN 13 Creatinine 0.89 BUN/Creatinine Ratio 14.6 Random Glucose 132 H Serum Osmolality 281.4 Calcium 8.5 Total Bilirubin 0.3 AST 15 ALT 16 Alkaline Phosphatase 77 Troponin I < 0.02 Serum Total Protein 6.4 Albumin 3.5 Globulin 2.9 Albumin/Globulin Ratio 1.2 03/17/19 20:22 EXAM DESCRIPTION: XR Chest,1 View CLINICAL HISTORY: 58 years Male pain TECHNIQUE: One view of the chest. COMPARISON: 11/13/2018 FINDINGS: Bibasilar atelectasis vs. infiltrates again seen, right greater than left. There is biapical pleural scarring. Trace right pleural effusion vs. pleural scarring. No pneumothorax. Stable cardiomediastinal silhouette without evidence of congestive failure. No acute osseous abnormality. IMPRESSION: Again seen are bibasilar atelectasis vs. infiltrates, right greater than left, with biapical pleural scarring and right basilar pleural scarring vs. trace effusion. No new findings in the chest. Electronically signed by: Kiley Snyder MD 03/17/2019 7:14 PM CDT Pt gives h/o coughing no overnight admissions in the last 90 days A/P-Chest Pain, COPD Exacerbation, Community Acquired Pneumonia 1.add rocephin doxycycline trend troponin admit will call hospitalist, azithromycin is contraindicated with trazadone 03/17/19 20:25 03/17/19 20:46 Laboratory Tests 03/17/19 03/17/19 03/17/19 18:21 18:21 18:21 WBC 8.2 RBC 4.42 L Hgb 13.3 L Hct 39.7 L MCV 89.7 MCH 30.1 MCHC 33.5 RDW 14.7 H Plt Count 180 MPV 7.1 L Absolute Neuts (auto) 5.80 Absolute Lymphs (auto) 1.30 Absolute Monos (auto) 0.70 Absolute Eos (auto) 0.20 Absolute Basos (auto) 0.00 Neutrophils % 71.7 Lymphocytes % 16.3 L Monocytes % 8.9 Eosinophils % 2.7 Basophils % 0.4 Sodium 140 Potassium 3.3 L Chloride 99 L Carbon Dioxide 32 H Anion Gap 12.3 BUN 13 Creatinine 0.89 BUN/Creatinine Ratio 14.6 Random Glucose 132 H Serum Osmolality 281.4 Calcium 8.5 Total Bilirubin 0.3 AST 15 ALT 16 Alkaline Phosphatase 77 Troponin I < 0.02 Serum Total Protein 6.4 Albumin 3.5 Globulin 2.9 Albumin/Globulin Ratio 1.2 03/17/19 19:49 WBC RBC Hgb Hct MCV MCH MCHC RDW Plt Count MPV Absolute Neuts (auto) Absolute Lymphs (auto) Absolute Monos (auto) Absolute Eos (auto) Absolute Basos (auto) Neutrophils % Lymphocytes % Monocytes % Eosinophils % Basophils % Sodium Potassium Chloride Carbon Dioxide Anion Gap BUN Creatinine BUN/Creatinine Ratio Random Glucose Serum Osmolality Calcium Total Bilirubin AST ALT Alkaline Phosphatase Troponin I < 0.02 Serum Total Protein Albumin Globulin Albumin/Globulin Ratio Spoke to Dr. Anat Espinoza Hospitalist accepts Departure - Departure Clinical Impression: Chronic obstructive pulmonary disease with (acute) exacerbation, Cough Chest pain Qualifiers: Chest pain type: unspecified Qualified Code(s): R07.9 - Chest pain, unspecified Community acquired pneumonia Qualifiers: Laterality: unspecified laterality Qualified Code(s): J18.9 - Pneumonia, unspecified organism Disposition: Discharge to Home or Self Care Departure Forms: ED Discharge - Pt. Copy, Patient Portal Self Enrollment Instructions: DI for Chest Pain Referrals: Artis Huerta MD [Primary Care Provider] - 1-2 Weeks Home Medications: Ambulatory Orders Trazodone HCl 100 mg PO BEDTIME 06/22/14 cloNAZepam [Klonopin] 0.5 mg PO DAILY 02/24/15 Aspirin [Aspirin Adult Low Dose] 81 mg PO DAILY #120 tab 08/15/16 OXcarbazepine [Trileptal] 300 mg PO BID 02/04/18 Nitroglycerin 0.4 mg Tab [Nitrostat] 1 tablet SL Q5MIN PRN #1 bottle 08/12/18 Cetirizine HCl [Cetirizine Hydrochloride] 10 mg PO DAILY 09/22/18 Clonazepam 0.25 mg PO BEDTIME 09/22/18 Furosemide Tab [Lasix Tab] 40 mg PO DAILY 09/22/18 Ipratropium-Albuterol [Combivent Respimat 20-100 Mcg/Act] 120 puff IN DAILY 09/22/18 Losartan Potassium 50 mg PO DAILY 09/22/18 Potassium Chloride [Potassium Chloride ER] 10 meq PO BID 09/22/18 Primidone 50 mg PO BID 09/22/18 Tramadol HCl 50 mg PO TID PRN 09/22/18 Amoxicillin & Pot Clavulanate [Augmentin Tab] 875 mg PO BID #12 tab 09/24/18 Methylprednisolone [Medrol Dose Kael] 4 mg PO DAILY 6 Days #21 tab 09/24/18 Decision To Admit - Decistion To Admit Decision to Admit Reason: Admit from ER Decision to Admit Date: 03/17/19 Decision to Admit Time: 20:50
[2019-03-17] MEDS ORDERED: IPRATROPIUM/ALBUTEROL 3 ML VIAL NEB ONE (18:55)
--- NOTE | 2019-03-17 19:15 | RAD ---
EXAM DESCRIPTION: XR Chest,1 View CLINICAL HISTORY: 58 years Male pain TECHNIQUE: One view of the chest. COMPARISON: 11/13/2018 FINDINGS: Bibasilar atelectasis vs. infiltrates again seen, right greater than left. There is biapical pleural scarring. Trace right pleural effusion vs. pleural scarring. No pneumothorax. Stable cardiomediastinal silhouette without evidence of congestive failure. No acute osseous abnormality. IMPRESSION: Again seen are bibasilar atelectasis vs. infiltrates, right greater than left, with biapical pleural scarring and right basilar pleural scarring vs. trace effusion. No new findings in the chest. Electronically signed by: Kiley Snyder MD 03/17/2019 7:14 PM CDT
[2019-03-17] MEDS ORDERED: cefTRIAXone SODIUM 1 GM in SODIUM CHL 0.9% 50ML MIN-BAG+ 50 ML IVPB ONE (20:24)
[2019-03-17] MEDS ORDERED: DOXYCYCLINE HYCLATE IV 100 MG in SODIUM CHLORIDE 0.9% 250ML 250 ML IVPB ONE (20:25)
[2019-03-17] MEDS ORDERED: cefTRIAXone SODIUM 1 GM VIAL ONE (20:37)
[2019-03-17] MEDS ORDERED: SODIUM CHL 0.9% 50ML MIN-BAG+ 50 ML IVPB ONE (20:37)
[2019-03-17] MEDS ORDERED: SODIUM CHLORIDE 0.9% 250ML 250 ML ONE (21:11)
[2019-03-17] MEDS ORDERED: DOXYCYCLINE HYCLATE IV 100 MG VIAL IVPB ONE (21:12)
--- NOTE | 2019-03-17 21:13 | HP ---
SUPERVISING PHYSICIAN: Owen Childers MD CHIEF COMPLAINT: Shortness of breath and chest pain. HISTORY OF PRESENT ILLNESS: This is a 58-year-old male patient who presented to the Emergency Room with chest pain and shortness of breath at 3 PM. He was sitting and watching television and had a sudden onset of chest pain that was pressure-like and midsternal. It did radiate some to the left arm. He had associated shortness of breath, it was constant and he had some diaphoresis with it. There was no nausea or vomiting. He had no fever. He had some coughing but that is chronic in nature. Nothing seemed to help his chest pain and he was at rest when it started and nothing made it worse, it was just constant. He does have a significant history of chronic obstructive pulmonary disease. He quit smoking in 2008 but prior to that he had a little over a [id number] history. His vital signs on admission were a temperature of 98.9, heart rate of 99, blood pressure 112/62, respiratory rate 24, oxygen saturation was 93% on 2 liters nasal cannula. It had been reported prior to arrival this his oxygen saturation was in the upper 80s. Lab studies were done and his CBC showed a normal white count of 8,200 with a hemoglobin of 13.3, hematocrit 39.7. Sodium was 140, potassium 3.3, chloride 99, carbon dioxide 32. The remainder of his metabolic panel was unremarkable. His first 2 troponins were negative in the Emergency Room. Urinalysis was normal. Blood cultures were done,. Chest x-ray showed bibasilar atelectasis versus infiltrate, right greater than left with biapical pleural scarring and right basilar pleural scarring with a trace of effusion. He was given fluids in the Emergency Room as well as Rocephin and doxycycline. He was also given some antiemetics and multiple breathing treatments and I was called for hospital admission. PAST MEDICAL HISTORY: 1. Hypertension. 2. Coronary artery disease. 3. Chronic obstructive pulmonary disease. 5. Hyperlipidemia. 5. Peripheral vascular disease. 6. Gastroesophageal reflux disease. 7. Myocardial infarction in 1988. PAST SURGICAL HISTORY: 1. Appendectomy. 2. Cardiac cath. OUTPATIENT MEDICATIONS: 1. Trazodone. 2. Duoneb. 3. Nitroglycerin. 4. Aspirin. 5. Cetirizine. 6. Clonazepam. 7. Furosemide. 8. Losartan. 9. Oxcarbazepine. 10. Potassium chloride. 11. Primidone. 12. Tramadol. FAMILY HISTORY: Positive for hypertension and lung cancer. SOCIAL HISTORY: He lives in [place]. He is disabled. He is . He sees Dr. Huerta at [facility]. He quit smoking in 2008 and has a greater [id number] history. He also quit drinking in 2008. He used to drink alcohol quite extensively. He denies any illicit drug use. REVIEW OF SYSTEMS: GENERAL: Negative for fever, chills or weight changes. HEENT: Negative for sinus symptoms, ear pain, vision changes or sore throat. RESPIRATORY: Positive for coughing, wheezing and shortness of breath. CARDIAC: Positive for chest pain, negative for palpitations or tachycardia. GASTROINTESTINAL: Negative for nausea, vomiting, diarrhea, constipation. GENITOURINARY: Negative for hematuria, dysuria or polyuria. MUSCULOSKELETAL: Negative for arthralgias, myalgias. SKIN: Negative for lesions or rashes. NEUROLOGIC: Negative for headache, dizziness or seizures. PHYSICAL EXAMINATION: VITAL SIGNS: Temperature 98.4, heart rate 94, blood pressure 111/67, respiratory rate 20 to 22. Oxygen saturation 92% on 2 liters ng. GENERAL: This is a 58 year-old obese male patient lying in his hospital bed. He is in mild respiratory distress. HEENT: Normocephalic, atraumatic. Pupils are equal and reactive. Oropharynx is clear. NECK: Supple without mass. RESPIRATORY: Diminished breath sounds throughout and he does have some scattered expiratory wheezing. His wheezing and diminished breath sounds are worse on the right than they are on the left. He is mildly tachypneic at rest and has to speak in short phrases due to his shortness of breath. CHEST: There is equal rise and fall of the chest with inspiration and expiration. CARDIOVASCULAR: Regular rate and rhythm. At times, he is slightly tachycardic. GASTROINTESTINAL: Abdomen is soft, nondistended, nontender. Bowel sounds are positive. EXTREMITIES: No cyanosis, clubbing or edema. NEUROLOGIC: Awake, alert and oriented times three. Cranial nerves II-XII are grossly intact. LABORATORY: Labs and films are as per history of present illness. ASSESSMENT: 1. Sepsis due to bilateral pneumonia, right worse than left, community acquired with admitting heart rate of 99, respiratory rate of 24. 2. Chest pain, rule out acute coronary syndrome. 3. Chronic obstructive pulmonary disease with an exacerbation in a patient who has an extensive history of prior tobacco abuse. 4. Gastroesophageal reflux disease. 5. Coronary artery disease with a history of [place] in 1988. 6. Hypertension on medications. 7. Hyperlipidemia. PLAN: The patient will be admitted to the hospital. He will continue with his azithromycin and doxycycline. The chest pain guidelines have been initiated as well as the pneumonia guidelines. He will have aggressive pulmonary hygiene including scheduled and p.r.n. nebulizer treatments. I will restart his home medications as soon as they are verified. I will have routine lab and chest x- ray in the morning and will continue to monitor him closely and follow as needed. #[id number] [facility]
[2019-03-17] MEDS ORDERED: ACETAMINOPHEN 325 MG TAB PO PRN (21:29)
[2019-03-17] MEDS ORDERED: traMADol HCL 50 MG TAB PO PRN (21:34)
[2019-03-17] MEDS ORDERED: SODIUM CHLORIDE 0.9% (FLUSH) 10 ML SYG IV PRN (21:37)
[2019-03-17] MEDS ORDERED: IV SET AND CAP CHANGE INJ INJ SCH (22:00)
[2019-03-17] MEDS: IV SET AND CAP CHANGE INJ INJ SCH (22:48)
[2019-03-17] MEDS: ENOXAPARIN SODIUM 40 MG/0.4 ML SYG SUBCU SCH (22:50)
[2019-03-17] MEDS: MORPHINE SULFATE INJ 10 MG/ML VIAL IV PRN (23:02)
[2019-03-17] MEDS: SODIUM CHLORIDE 0.9% (FLUSH) 10 ML SYG IV PRN (23:03)
[2019-03-18] MEDS: ALBUTEROL SULFATE 2.5 MG/3 ML VIAL NEB PRN (02:00)
[2019-03-18] MEDS: PANTOPRAZOLE SODIUM IV 40 MG VIAL IV SCH (06:14)
[2019-03-18] MEDS: SODIUM CHLORIDE 0.9% (FLUSH) 10 ML SYG IV PRN (06:15)
--- NOTE | 2019-03-18 07:20 | RAD ---
EXAM DESCRIPTION: Chest,2 Views CLINICAL HISTORY: 58 years Male Pneumonia COMPARISON: Portable chest dated 03/17/2019 TECHNIQUE: PA and lateral views of the chest are obtained. Heart: The heart is mildly enlarged in the setting of COPD. Vasculature: []There is no evidence of aortic aneurysm or acute findings. There is mild central pulmonary vascular congestion Mediastinum: Unremarkable otherwise. No evidence of mass or adenopathy. Lungs: Opacification in the right lower lung may result from layering pleural fluid versus atelectasis/pneumonia. There is discoid atelectasis and or scarring in the left base. Hyperinflation and hyperlucency of the upper lung suggests underlying COPD. Pleural spaces: There are small bilateral right pleural effusion with effusions some mild loculation laterally and at the apices. There are no pneumothoraces. Osseous structures: There is no evidence of acute fracture, osseous destruction or osteoblastic lesions. Tubes and catheters: None Upper abdomen: No acute findings. Chest wall: Unremarkable. IMPRESSION: COPD and congestive heart failure. Atelectasis and or pneumonia in the right lower lung not excluded versus edema. There has been little change in the interim allowing for slight differences in positioning. Electronically signed by: Griselda Simpson MD 03/18/2019 7:17 AM CDT
[2019-03-18] MEDS: IPRATROPIUM/ALBUTEROL 3 ML VIAL NEB SCH ×3 (07:45→16:20)
[2019-03-18] MEDS ORDERED: IPRATROPIUM/ALBUTEROL 3 ML VIAL INH SCH (08:00)
[2019-03-18] MEDS ORDERED: cefTRIAXone SODIUM 1 GM VIAL ONE (08:41)
[2019-03-18] MEDS ORDERED: SODIUM CHL 0.9% 50ML MIN-BAG+ 50 ML IVPB ONE (08:41)
[2019-03-18] MEDS: cefTRIAXone SODIUM 1 GM in SODIUM CHL 0.9% 50ML MIN-BAG+ 50 ML IVPB SCH (09:00)
[2019-03-18] MEDS: FUROSEMIDE 40 MG TAB PO SCH (09:00)
[2019-03-18] MEDS: PRIMIDONE 50 MG TAB PO SCH ×2 (09:00→20:54)
[2019-03-18] MEDS ORDERED: SODIUM CHLORIDE 0.9% (FLUSH) 10 ML SYG IV SCH (09:00)
[2019-03-18] MEDS: SODIUM CHLORIDE 0.9% (FLUSH) 10 ML SYG IV SCH ×2 (09:01→20:55)
[2019-03-18] MEDS: POTASSIUM CHLORIDE 10 MEQ TAB PO SCH ×2 (09:01→16:52)
[2019-03-18] MEDS: CETIRIZINE HCL 10 MG TAB PO SCH (09:01)
[2019-03-18] MEDS: OXcarbazepine 300 MG TAB PO SCH ×2 (09:01→20:53)
[2019-03-18] MEDS: ASPIRIN (ENTERIC COATED) 81 MG TAB PO SCH (09:01)
[2019-03-18] MEDS: LOSARTAN POTASSIUM 25 MG TAB PO SCH (09:01)
[2019-03-18] MEDS ORDERED: SODIUM CHLORIDE 0.9% 250ML 250 ML ONE ×2 (09:43→19:25)
[2019-03-18] MEDS ORDERED: DOXYCYCLINE HYCLATE IV 100 MG VIAL IVPB ONE ×2 (09:43→19:25)
[2019-03-18] MEDS: DOXYCYCLINE HYCLATE IV 100 MG in SODIUM CHLORIDE 0.9% 250ML 250 ML IVPB SCH ×2 (09:44→21:00)
[2019-03-18] MEDS ORDERED: methylPREDNISolone SODIUM SUC 125 MG/2 ML VIAL IV ONE (12:51)
[2019-03-18] MEDS: MORPHINE SULFATE INJ 10 MG/ML VIAL IV PRN (14:37)
[2019-03-18] MEDS ORDERED: methylPREDNISolone SODIUM SUC 125 MG/2 ML VIAL ONE (19:26)
--- NOTE | 2019-03-18 19:56 | PN ---
DATE: 03/18/19 SUPERVISING PHYSICIAN: Owen Childers M.D. SUBJECTIVE: The patient is sitting up in bed. He is feeling somewhat better, although he is coughing up quite a bit of thick, whitish yellow sputum. He continues to be somewhat short of breath with exertion, but denies any worsening shortness of breath, chest pain, nausea, vomiting or diarrhea. It is reported by nursing staff that when his is in the room he gets quite anxious, but he denies any issues at this time. OBJECTIVE: VITAL SIGNS: Temperature 97.4, heart rate 102, blood pressure 130/72, respiratory rate 18 to 22, O2 sat is 96% on 2 liters nasal cannula. RESPIRATORY: Diminished at the bases. He does have some scattered expiratory wheezing that is slightly worsened than his admission. The right is worse than the left. There is scattered rhonchi throughout. He is slightly tachypneic especially with speaking and he does have to speak in short phrases. CARDIAC: Regular rate and rhythm. At times he is somewhat tachycardic. GASTROINTESTINAL: Abdomen is soft, nondistended, non-tender. Bowel sounds are positive. NEUROLOGIC: He is awake, alert and oriented times three. LABORATORY: CBC is unremarkable. Serial cardiac enzymes have all been negative. Electrolytes are within normal limits with the exception of his calcium is slightly low at 8.3. Chloride is 99, carbon dioxide 33. Triglycerides 189. LDL 105 and HDL 23. Preliminary blood cultures are negative. Chest x-ray chronic obstructive pulmonary disease and congestive heart failure, atelectasis and/or pneumonia of the right lower lobe not excluded versus edema. All other labs and films have been reviewed via the EMR. ASSESSMENT: 1. Sepsis due to bilateral pneumonia, right worse than left, community acquired with admitting heart rate of 99, respiratory rate of 24. 2. Chest pain, rule out acute coronary syndrome. 3. Chronic obstructive pulmonary disease with an exacerbation in a patient who has an extensive history of prior tobacco abuse. 4. Gastroesophageal reflux disease. 5. Coronary artery disease with a history of [place] in 1988. 6. Hypertension on medications. 7. Hyperlipidemia. PLAN: We will continue present supportive care. His lung sounds have not improved and so I have added some IV steroids and have tapered that dosing for right now. I will check his lab and a chest x-ray in the morning. I have added Mucinex for the cough. I have also added p.r.n. Ativan for his anxiety. Will continue to monitor closely and follow as needed. #[id number] MTDD
[2019-03-18] MEDS: ENOXAPARIN SODIUM 40 MG/0.4 ML SYG SUBCU SCH (20:53)
[2019-03-18] MEDS: guaiFENesin ER TAB 600 MG TAB PO SCH (20:53)
[2019-03-18] MEDS: methylPREDNISolone SODIUM SUC 125 MG/2 ML VIAL IV SCH (23:43)
[2019-03-19] MEDS: PANTOPRAZOLE SODIUM IV 40 MG VIAL IV SCH (06:03)
[2019-03-19] MEDS: methylPREDNISolone SODIUM SUC 125 MG/2 ML VIAL IV SCH (06:03)
[2019-03-19] MEDS ORDERED: SODIUM CHL 0.9% 50ML MIN-BAG+ 50 ML IVPB ONE (07:33)
[2019-03-19] MEDS ORDERED: SODIUM CHLORIDE 0.9% 250ML 250 ML ONE ×2 (07:33→20:32)
[2019-03-19] MEDS ORDERED: DOXYCYCLINE HYCLATE IV 100 MG VIAL IVPB ONE ×2 (07:34→20:32)
[2019-03-19] MEDS ORDERED: cefTRIAXone SODIUM 1 GM VIAL ONE (07:34)
--- NOTE | 2019-03-19 07:37 | RAD ---
EXAM DESCRIPTION: Chest,2 Views CLINICAL HISTORY: pna COMPARISON: March 18, 2019 FINDINGS: The cardiac silhouette is at the upper limits of normal size, stable. Mediastinal contours are otherwise unremarkable. Bibasilar atelectasis and/or consolidation, worse on the right side with a possible small right-sided pleural effusion, stable. No new airspace consolidation. There is no pneumothorax or acute fracture. IMPRESSION: Right basilar pneumonia with possible small right-sided effusion, stable. Atelectasis versus less advanced pneumonia in the left lung base, also stable. Electronically signed by: Jose Brar MD 03/19/2019 7:35 AM CDT
[2019-03-19] MEDS: POTASSIUM CHLORIDE 10 MEQ TAB PO SCH ×2 (07:49→17:24)
[2019-03-19] MEDS: ASPIRIN (ENTERIC COATED) 81 MG TAB PO SCH (07:53)
[2019-03-19] MEDS: LOSARTAN POTASSIUM 25 MG TAB PO SCH (07:54)
[2019-03-19] MEDS: FUROSEMIDE 40 MG TAB PO SCH (07:54)
[2019-03-19] MEDS: SODIUM CHLORIDE 0.9% (FLUSH) 10 ML SYG IV SCH ×2 (07:55→22:09)
[2019-03-19] MEDS: OXcarbazepine 300 MG TAB PO SCH ×2 (08:00→22:08)
[2019-03-19] MEDS: guaiFENesin ER TAB 600 MG TAB PO SCH ×2 (08:00→22:09)
[2019-03-19] MEDS: PRIMIDONE 50 MG TAB PO SCH ×2 (08:00→22:08)
[2019-03-19] MEDS: IPRATROPIUM/ALBUTEROL 3 ML VIAL NEB SCH ×4 (08:02→20:23)
[2019-03-19] MEDS: cefTRIAXone SODIUM 1 GM in SODIUM CHL 0.9% 50ML MIN-BAG+ 50 ML IVPB SCH (08:04)
[2019-03-19] MEDS: CETIRIZINE HCL 10 MG TAB PO SCH (08:13)
[2019-03-19] MEDS: DOXYCYCLINE HYCLATE IV 100 MG in SODIUM CHLORIDE 0.9% 250ML 250 ML IVPB SCH ×2 (10:10→22:09)
--- NOTE | 2019-03-19 11:47 | PN ---
SUPERVISING PHYSICIAN: Mike Pitt MD DATE: 03/19/19 SUBJECTIVE: The patient feels okay this morning with no significant shortness of breath. He has been doing her breathing treatments and pulmonary hygiene as ordered without any difficulties. OBJECTIVE: VITAL SIGNS: Blood pressure 136/79. Heart rate 106. Respiratory rate 18. Temperature 97.5. O2 saturation 93%. GENERAL: Mr. Mark is a 58-year-old male patient in no active distress currently. NEUROLOGIC: Alert and oriented. LUNGS: Diminished in the bases. No active wheezing. CARDIOVASCULAR: Regular rate and rhythm. Normal S1, S2. ABDOMEN: Soft, obese. Positive bowel sounds. GENITOURINARY: Deferred. EXTREMITIES: Lower extremities with no significant edema. RADIOLOGY: Chest x-ray shows right bibasilar pneumonia, possible pneumonia on the left, but could be atelectasis as well. LABORATORY: White count 10,000, hemoglobin 16.8, platelet count 177. Chemistry unremarkable. ASSESSMENT: 1. Chronic obstructive pulmonary disease exacerbation. 2. Bibasilar pneumonia, right greater than left. 3. Gastroesophageal reflux disease. 4. Chest pain, rule out acute coronary syndrome, which was a negative workup, but history of coronary artery disease with myocardial infarction in 1988. 5. Hypertension. 6. Hyperlipidemia. PLAN: I am going to taper his steroids down to 20 mg every 6 hours from 60 mg every 6 hours. We will monitor his progress on this. If he does well, we can move him to p.o. steroids. Continue IV antibiotics for now. #[id number] MTDD
[2019-03-19] MEDS: methylPREDNISolone SODIUM SUC 40 MG/ML VIAL IV SCH ×3 (12:16→23:48)
[2019-03-19] MEDS: NITROGLYCERIN 0.4 MG 25 EA TAB SL PRN ×3 (15:32→17:25)
[2019-03-19] MEDS ORDERED: ALUM & MAG HYDROX-SIMETHICONE 30 ML, LIDOCAINE VISCOUS 2% 15 ML PO ONE ×2 (17:28)
[2019-03-19] MEDS ORDERED: LIDOCAINE HCL 2% (MOUTH-THROAT) 15 ML UD ONE (17:46)
[2019-03-19] MEDS ORDERED: ALUM & MAG HYDROX-SIMETHICONE 30 ML UD ONE (17:46)
[2019-03-19] MEDS ORDERED: PANTOPRAZOLE SODIUM TAB 40 MG PO ONE (20:32)
[2019-03-19] MEDS: ENOXAPARIN SODIUM 40 MG/0.4 ML SYG SUBCU SCH (22:09)
[2019-03-19] MEDS: SODIUM CHLORIDE 0.9% (FLUSH) 10 ML SYG IV PRN (23:49)
[2019-03-20] MEDS: methylPREDNISolone SODIUM SUC 40 MG/ML VIAL IV SCH (06:17)
[2019-03-20] MEDS: SODIUM CHLORIDE 0.9% (FLUSH) 10 ML SYG IV PRN ×2 (06:18→21:30)
[2019-03-20] MEDS: PANTOPRAZOLE SODIUM TAB 40 MG PO SCH (06:18)
[2019-03-20] MEDS ORDERED: SODIUM CHLORIDE 0.9% 250ML 250 ML ONE ×2 (07:17→20:50)
[2019-03-20] MEDS ORDERED: SODIUM CHL 0.9% 50ML MIN-BAG+ 50 ML IVPB ONE (07:17)
[2019-03-20] MEDS ORDERED: cefTRIAXone SODIUM 1 GM VIAL ONE (07:18)
[2019-03-20] MEDS ORDERED: DOXYCYCLINE HYCLATE IV 100 MG VIAL IVPB ONE ×2 (07:18→20:51)
--- NOTE | 2019-03-20 07:18 | RAD ---
EXAM DESCRIPTION: Chest,1 View CLINICAL HISTORY: 58 years Male copd/pna COMPARISON: Two-view chest dated 03/19/2019 TECHNIQUE: Portable AP view of the chest is obtained. FINDINGS IN THE CHEST: Heart: Allowing for magnification factors related to AP portable technique and body habitus, the heart is upper limits of normal in size and configuration. Vasculature: [] There is no evidence of aortic aneurysm or acute findings. The pulmonary vascularity is normal. Mediastinum: No evidence of mass or adenopathy. Lungs: Groundglass opacification is present in both lung bases which may be exaggerated by underpenetration. Mild bibasilar atelectasis and/or pneumonia versus edema not excluded. Pleura: There is a persistent small right pleural effusion. Minimal left pleural fluid not excluded There are no pneumothoraces. Osseous structures: No evidence of acute fracture or other significant osseous abnormalities. Tubes and catheters: None Chest wall: Unremarkable. Visualized Abdomen: Unremarkable. IMPRESSION: Groundglass opacification is present in both lung bases which may be exaggerated by underpenetration. Mild bibasilar atelectasis and/or pneumonia versus edema not excluded. Remainder of findings as described above. Electronically signed by: Griselda Simpson MD 03/20/2019 7:17 AM CDT
[2019-03-20] MEDS: POTASSIUM CHLORIDE 10 MEQ TAB PO SCH ×2 (07:23→16:33)
[2019-03-20] MEDS: IPRATROPIUM/ALBUTEROL 3 ML VIAL NEB SCH ×4 (07:57→19:50)
[2019-03-20] MEDS: guaiFENesin ER TAB 600 MG TAB PO SCH ×2 (08:29→21:29)
[2019-03-20] MEDS: SODIUM CHLORIDE 0.9% (FLUSH) 10 ML SYG IV SCH ×2 (08:29→21:30)
[2019-03-20] MEDS: LOSARTAN POTASSIUM 25 MG TAB PO SCH (08:29)
[2019-03-20] MEDS: ASPIRIN (ENTERIC COATED) 81 MG TAB PO SCH (08:29)
[2019-03-20] MEDS: CETIRIZINE HCL 10 MG TAB PO SCH (08:29)
[2019-03-20] MEDS: PRIMIDONE 50 MG TAB PO SCH ×2 (08:29→21:29)
[2019-03-20] MEDS: cefTRIAXone SODIUM 1 GM in SODIUM CHL 0.9% 50ML MIN-BAG+ 50 ML IVPB SCH (08:29)
[2019-03-20] MEDS: FUROSEMIDE 40 MG TAB PO SCH (08:29)
[2019-03-20] MEDS: OXcarbazepine 300 MG TAB PO SCH ×2 (08:29→21:30)
[2019-03-20] MEDS: DOXYCYCLINE HYCLATE IV 100 MG in SODIUM CHLORIDE 0.9% 250ML 250 ML IVPB SCH ×2 (09:24→21:31)
[2019-03-20] MEDS: predniSONE 20 MG TAB PO SCH (09:25)
--- NOTE | 2019-03-20 10:09 | PN ---
SUPERVISING PHYSICIAN: Mike Pitt MD DATE: 03/20/19 SUBJECTIVE: The patient states he has a little burning issues when he coughs, but otherwise no complaints of shortness of breath. He states his cough is not really too productive this morning. OBJECTIVE: VITAL SIGNS: Blood pressure 124/77. Heart rate 84. Respiratory rate 18. Temperature 98.3. O2 saturation 95%. GENERAL: Mr. Mark is a 58-year-old male patient in no active distress currently. NEUROLOGIC: Alert. LUNGS: Diminished in the bases. No active wheezing. No rhonchi. CARDIOVASCULAR: Regular rate and rhythm. Normal S1, S2. ABDOMEN: Soft, obese. Positive bowel sounds. EXTREMITIES: Lower extremities with some trace ankle edema. Otherwise, 2+ pulses. Capillary refill less than 2 seconds. LABORATORY: White count 12.3, hemoglobin 13.8, patient left in satisfactory condition 170. Chemistry with sodium 138, potassium 4.2, chloride 101, CO2 24, BUN 23, creatinine 0.89. Glucose 131, calcium 8.6. RADIOLOGY: Chest x-ray done pretty much consistent with bibasilar pneumonia. ASSESSMENT: 1. Chronic obstructive pulmonary disease exacerbation. 2. Bibasilar pneumonia, right greater than left. 3. Gastroesophageal reflux disease. 4. Chest pain, likely secondary to coughing as cardiac workup negative. 5. Hypertension. 6. Hyperlipidemia. PLAN: We will further reduce steroids today and place on prednisone 40 mg daily. Continue current antibiotics. I will recheck labs and chest x-ray in the morning. If he is doing okay, however, today, I would imagine that he can go home tomorrow on p.o. antibiotics and steroids. #[id number] MTDD
[2019-03-20] MEDS ORDERED: MAGNESIUM HYDROXIDE 30 ML UD PO ONE (21:00)
[2019-03-20] MEDS: ENOXAPARIN SODIUM 40 MG/0.4 ML SYG SUBCU SCH (21:29)
[2019-03-20] MEDS: IV SET AND CAP CHANGE INJ INJ SCH (21:31)
[2019-03-20] MEDS: ALBUTEROL SULFATE 2.5 MG/3 ML VIAL NEB PRN (23:27)
[2019-03-21] MEDS: ALBUTEROL SULFATE 2.5 MG/3 ML VIAL NEB PRN (03:47)
[2019-03-21] MEDS: PANTOPRAZOLE SODIUM TAB 40 MG PO SCH (06:20)
[2019-03-21] MEDS ORDERED: SODIUM CHLORIDE 0.9% 250ML 250 ML ONE (07:36)
[2019-03-21] MEDS ORDERED: SODIUM CHL 0.9% 50ML MIN-BAG+ 50 ML IVPB ONE (07:36)
[2019-03-21] MEDS ORDERED: cefTRIAXone SODIUM 1 GM VIAL ONE (07:37)
[2019-03-21] MEDS ORDERED: DOXYCYCLINE HYCLATE IV 100 MG VIAL IVPB ONE (07:37)
[2019-03-21] MEDS: POTASSIUM CHLORIDE 10 MEQ TAB PO SCH (07:48)
[2019-03-21] MEDS: IPRATROPIUM/ALBUTEROL 3 ML VIAL NEB SCH ×2 (08:30→12:48)
[2019-03-21] MEDS: FUROSEMIDE 40 MG TAB PO SCH (08:35)
[2019-03-21] MEDS: predniSONE 20 MG TAB PO SCH (08:35)
[2019-03-21] MEDS: ASPIRIN (ENTERIC COATED) 81 MG TAB PO SCH (08:35)
[2019-03-21] MEDS: LOSARTAN POTASSIUM 25 MG TAB PO SCH (08:36)
[2019-03-21] MEDS: guaiFENesin ER TAB 600 MG TAB PO SCH (08:36)
[2019-03-21] MEDS: OXcarbazepine 300 MG TAB PO SCH (08:36)
[2019-03-21] MEDS: SODIUM CHLORIDE 0.9% (FLUSH) 10 ML SYG IV SCH (08:36)
[2019-03-21] MEDS: CETIRIZINE HCL 10 MG TAB PO SCH (08:36)
[2019-03-21] MEDS: PRIMIDONE 50 MG TAB PO SCH (08:36)
[2019-03-21] MEDS: cefTRIAXone SODIUM 1 GM in SODIUM CHL 0.9% 50ML MIN-BAG+ 50 ML IVPB SCH (08:36)
[2019-03-21] MEDS: DOXYCYCLINE HYCLATE IV 100 MG in SODIUM CHLORIDE 0.9% 250ML 250 ML IVPB SCH (10:42)
[2019-03-21 12:15] VITALS: BP 135/82; TEMP 98
[2019-03-21] MEDS ORDERED: PNEUMOCOCCAL VACCINE 0.5 ML INJ ONE (12:36)
[2019-03-21] MEDS ORDERED: INFLUENZA VIRUS VACC (ADULT) 0.5 ML SYG IM ONE (12:36)
[2019-03-21 13:30] VITALS: O2SAT 97
--- NOTE | 2019-03-21 16:24 | DS ---
SUPERVISING PHYSICIAN: Mike Pitt M.D. ADMISSION DIAGNOSIS: 1. Sepsis secondary to bilateral pneumonia, right greater than left. 2. Chest pain, rule out acute coronary syndrome. 3. Chronic obstructive pulmonary disease with exacerbation. 4. Gastroesophageal reflux disease. 5. Coronary artery disease. 6. Hypertension. 7. Hyperlipidemia. DISCHARGE DIAGNOSIS: 1. Chronic obstructive pulmonary disease exacerbation. 2. Bibasilar pneumonia, right greater than left. 3. Gastroesophageal reflux disease. 4. Chest pain with cardiac event ruled out. 5. Hypertension. 6. Hyperlipidemia. HOSPITAL COURSE: This is a 58 year-old male patient who came to the Emergency Room with shortness of breath around 3:00 in the afternoon on day of admission. Apparently he was sitting watching television and had sudden onset of the chest pain which was pressure and substernal. He stated at the time it did radiate to his left arm. He had shortness of breath as well. When he came to the Emergency Room he was evaluated and shown to have bibasilar pneumonia as well as evidence of COPD exacerbation. For those reasons he was referred for admission. His actual cardiac workup proved to be negative for any acute cardiac cause. EKG remained without any acute changes and troponins were negative. He was placed on IV steroids as well as IV antibiotics for the pneumonia. The Solu- Medrol was reduced, in fact tapered down. Then it was changed to p.o. prednisone the day prior to discharge. The patient remained without significant shortness of breath and continued to progress well. Therefore the patient will be discharged today in stable condition on doxycycline to complete a 10 day course of antibiotics. Additionally I have ordered a titrating dose of prednisone for the patient to take as well. He can followup with his primary care physician, Dr. Huerta, in 1 to 2 weeks. His diet will be as per his usual diet. Activity is as tolerated but he utilizes a walker. I have contacted Social Work to get him some home health which he is going to get through [facility]. #[id number] [facility]
== END 2019-03-21 13:30 | disposition home health service (06) | DRG 190 ==
LOC: ER 17:59 → OBSVTOIN 21:12 → MS 21:12
PROVIDERS: ADMIT Nurse Practitioner Acute Care; ATTEND Nurse Practitioner
DX: J44.1 Chronic obstructive pulmonary disease with (acute) exacerbation (principal); J18.9 Pneumonia, unspecified organism; Z68.41 Body mass index [BMI] 40.0-44.9, adult; J44.0 Chronic obstructive pulmonary disease with (acute) lower respiratory infection; K21.9 Gastro-esophageal reflux disease without esophagitis; I25.10 Atherosclerotic heart disease of native coronary artery without angina pectoris; I10 Essential (primary) hypertension; E78.5 Hyperlipidemia, unspecified; Z87.891 Personal history of nicotine dependence; I73.9 Peripheral vascular disease, unspecified; I25.2 Old myocardial infarction; E66.9 Obesity, unspecified; Z79.82 Long term (current) use of aspirin; Z79.891 Long term (current) use of opiate analgesic; Z79.899 Other long term (current) drug therapy

== ENCOUNTER 2019-04-13 16:23 | Emergency (ER) | payer OTHER ==
[2019-04-13] MEDS ORDERED: IPRATROPIUM BROMIDE NEBS 0.5 MG/2.5 ML VIAL NEB ONE (16:33)
--- NOTE | 2019-04-13 17:06 | RAD ---
EXAM: XR Chest, 2 Views CLINICAL HISTORY: sob, palpitations TECHNIQUE: Frontal and lateral views of the chest. COMPARISON: 03/20/2019. FINDINGS: Limitations: None. Lungs: Chronic obstructive changes present with stable right lower lobe airway thickening and patchy consolidation. Pleural space: Bilateral pleural thickening present. No pneumothorax. Heart: Unremarkable. No cardiomegaly. Mediastinum: Unremarkable. Bones/joints: Unremarkable. IMPRESSION: Stable abnormalities as above. Electronically signed by: Jane Mcclain MD 04/13/2019 5:04 PM CDT
[2019-04-13] MEDS ORDERED: POTASSIUM CHLORIDE ELIXIR 20 MEQ/15 ML UD PO ONE ×2 (17:44→19:51)
[2019-04-13] MEDS ORDERED: KCL 40MEQ/NS 1,000 ML IVS ONE (17:44)
--- NOTE | 2019-04-13 19:54 | ED.PDOC ---
History of Present Illness - General Chief Complaint: Cardiovascular Problem Stated Complaint: Chest pain/SOB since 0700 Time Seen by Provider: 04/13/19 16:24 Source: patient Exam Limitations: no limitations - History of Present Illness Initial Comments: the patient is a 59-year-old male presenting to the emergency room secondary to a feeling of shortness of breath along with some anxiety and a feeling of palpitations starting this morning around 7 AM. No hypoxia. No real chest pain. No syncope. He does have a long-standing history of chronic pulmonary disease and multiple recurrent pneumonias. He also has a long- standing history of frequent PACs and PVCs. The patient is pleasant and cooperative. He does not appear to be in any distress. Telemetry does show mild sinus tachycardia with frequent PACs and PVCs. No syncope or near syncope. No productive cough. He has not been doing any breathing treatments but he has been using his Combivent inhaler. He did feel significantly better after ipratropium nebulizer treatment. Lungs are actually clear.the patient does have significant anxiety which has contributed to symptoms in the past. He is cur rently anxious. Timing/Duration: other - 10 hours Severity: mild Improving Factors: nothing Worsening Factors: nothing Associated Symptoms: shortness of breath Allergies/Adverse Reactions: Allergies Codeine Allergy (Intermediate, Verified 04/13/19 16:59) Other vomiting, itch dizzy Meperidine [From Demerol HCl] Allergy (Intermediate, Verified 04/13/19 16:59) Other vomiting, dizzy itch Home Medications: Ambulatory Orders Trazodone HCl 100 mg PO BEDTIME 06/22/14 cloNAZepam [Klonopin] 0.5 mg PO DAILY 02/24/15 Aspirin [Aspirin Adult Low Dose] 81 mg PO DAILY #120 tab 08/15/16 OXcarbazepine [Trileptal] 300 mg PO BID 02/04/18 Nitroglycerin 0.4 mg Tab [Nitrostat] 1 tablet SL Q5MIN PRN #1 bottle 02/05/18 Cetirizine HCl [Cetirizine Hydrochloride] 10 mg PO DAILY 09/22/18 Clonazepam 0.25 mg PO BEDTIME 09/22/18 Furosemide Tab [Lasix Tab] 40 mg PO DAILY 09/22/18 Ipratropium-Albuterol [Combivent Respimat 20-100 Mcg/Act] 120 puff IN DAILY 09/22/18 Losartan Potassium 50 mg PO DAILY 09/22/18 Potassium Chloride [Potassium Chloride ER] 10 meq PO BID 09/22/18 Primidone 50 mg PO BID 09/22/18 Tramadol HCl 50 mg PO TID PRN 09/22/18 Doxycycline (Monohydrate) [Doxycycline Monohydrate] 100 mg PO BID 7 Days #14 tab 03/21/19 predniSONE 40 mg PO DAILY #30 tab 03/21/19 Review of Systems - Review of Systems Constitutional: States: no symptoms reported EENTM: States: no symptoms reported Respiratory: States: short of breath Cardiology: States: palpitations Gastrointestinal/Abdominal: States: no symptoms reported Genitourinary: States: no symptoms reported Musculoskeletal: States: no symptoms reported Skin: States: no symptoms reported Neurological: States: anxiety Endocrine: States: no symptoms reported All other Systems: No Change from Baseline Past Medical History (General) - Patient Medical History Hx Seizures: No Hx Stroke: No Hx Dementia: No Hx Asthma: Yes Hx of COPD: Yes Hx Cardiac Disorders: Yes - [place] 1988 Hx Congestive Heart Failure: No Hx Pacemaker: No Hx Hypertension: Yes Hx Thyroid Disease: No Hx Diabetes: No Hx Gastroesophageal Reflux: Yes Hx Renal Disease: No Hx Cancer: Yes - Lung Hx of HIV: No Hx Hepatitis C: No Hx MRSA: No Surgical History: appendectomy, tonsillectomy - Vaccination History Hx Tetanus, Diphtheria Vaccination: No Hx Influenza Vaccination: Yes Hx Pneumococcal Vaccination: Yes - Social History Hx Tobacco Use: Yes Hx Chewing Tobacco Use: No Hx Alcohol Use: No Hx Substance Use: No Hx Substance Use Treatment: No Hx Depression: No Hx Physical Abuse: No Hx Emotional Abuse: No Hx Suspected Abuse: No - Female History Patient is a Female of Child Bearing Age (10 -59 yrs old): No Patient : No Family Medical History - Family History Father Living Status: Still Living Hx Family Hypertension: Yes Hx Cardiac Disease: Yes Hx Family Diabetes: Yes Hx Family;Other: lung CA Mother Family History: No Known Living Status: Still Living Hx Family Hypertension: Yes Hx Family Stroke: - dad Hx Cardiac Disease: Yes Hx Family Diabetes: Yes - parents Hx Family Cancer: - Lung CA Physical Exam - Physical Exam General Appearance: Alert, Anxious, No apparent distress Eye Exam: bilateral normal Ears, Nose, Throat: hearing grossly normal, normal pharynx, other - he does have a coarse, hoarse voice. Neck: full range of motion, supple Respiratory: lungs clear, normal breath sounds, no respiratory distress, no accessory muscle use Cardiovascular/Chest: normal peripheral pulses, no edema, other - telemetry shows borderline sinus tachycardia with frequent PACs and PVCs. Peripheral Pulses: radial,right: 2+, radial,left: 2+, dorsalis pedis,right: 2+, dorsalis pedis,left: 2+ Gastrointestinal/Abdominal: non tender, soft Rectal Exam: deferred Back Exam: no CVA tenderness, no vertebral tenderness Extremity: non-tender, normal inspection, no pedal edema, normal capillary refill Neurologic: outlet manager II-XII nml as tested, alert, oriented x 3, other - he is anxious Skin Exam: normal color Comments: Vital Signs - 24 hr 04/13/19 04/13/19 04/13/19 16:25 16:46 16:47 Temperature 97.9 F Pulse Rate 111 H 108 H Pulse Rate [ 111 H 111 H Monitor] Respiratory 24 22 22 Rate Blood Pressure 124/73 [R brachial] O2 Sat by Pulse 95 98 Oximetry 04/13/19 19:23 Temperature Pulse Rate Pulse Rate [ 92 H Monitor] Respiratory 22 Rate Blood Pressure 108/61 [R brachial] O2 Sat by Pulse 96 Oximetry Progress - Progress Progress: 04/13/19 19:56 the patient is a 59-year-old male presenting to emergency room due to shortness of breath and palpitations. He does have a history of some chronic lung disease. He is to continue his oral prednisone at home. He can do one of his breathing treatments every now and then if he needs to, if he feels like his lungs are tightening up. Otherwise he is to continue his Combivent inhaler primarily. No evidence of any overt infection was found. The patient did respond well to and ipratropium nebulizer treatment. The patient does have frequent PACs and PVCs which he does feel. These are likely made more frequent by the hypokalemia found here today. The patient was given 2 doses of oral potassium. He does need to increase his home potassium to 40 mEq twice a day. He needs to have this level rechecked in 1 week with his primary care doctor. Laboratory work, EKG and chest x-ray were reassuring otherwise. Return to the emergency room for any acute worsening. Follow back up with primary care doctor in 1 week. brody burnham [phone] - Results/Orders Results/Orders: EKG shows sinus tachycardia at 106 bpm with frequent PACs and PVCs. No definitive ST segment or T-wave changes in his [place] rhythm indicative of acute ischemia. Mild right axis deviation. Borderline QT interval. Chest x-ray shows chronic changes only. No obvious new infiltrate. No pneumothorax. No obvious acute volume overload. See report for details. Laboratory Tests 04/13/19 04/13/19 04/13/19 16:40 16:40 16:40 WBC 8.7 RBC 4.61 L Hgb 13.9 L Hct 41.7 L MCV 90.3 MCH 30.0 MCHC 33.3 RDW 15.1 H Plt Count 189 MPV 6.9 L Absolute Neuts (auto) 6.60 Absolute Lymphs (auto) 1.50 Absolute Monos (auto) 0.50 Absolute Eos (auto) 0.20 Absolute Basos (auto) 0.00 Neutrophils % 75.5 Lymphocytes % 16.8 L Monocytes % 5.6 Eosinophils % 1.8 Basophils % 0.3 PT 10.0 INR 1.00 PTT (SP) 24.4 D-Dimer, Quantitative 0.20 Sodium 140 Potassium 3.0 L Chloride 96 L Carbon Dioxide 30 Anion Gap 17.0 BUN 16 Creatinine 1.09 BUN/Creatinine Ratio 14.7 Random Glucose 165 H Serum Osmolality 284.3 Calcium 8.6 Magnesium 1.9 Total Bilirubin 0.6 AST 16 ALT 16 Alkaline Phosphatase 71 Creatine Kinase 61 CK-MB (CK-2) 2.7 CK-MB (CK-2) % Not Reportable Troponin I < 0.02 B-Natriuretic Peptide 20.4 Serum Total Protein 6.7 Albumin 3.5 Globulin 3.2 Albumin/Globulin Ratio 1.1 TSH 1.72 Departure - Departure Clinical Impression: COPD with exacerbation, Hypokalemia, Symptomatic PVCs Disposition: Discharge to Home or Self Care Condition: Fair Departure Forms: ED Discharge - Pt. Copy, Patient Portal Self Enrollment Instructions: Ventricular Premature Beats, Hypokalemia (DC) Diet: regular diet Activity: increase activity as tolerated Referrals: Artis Huerta MD [Primary Care Provider] - 1-2 Weeks Home Medications: Ambulatory Orders Trazodone HCl 100 mg PO BEDTIME 06/22/14 cloNAZepam [Klonopin] 0.5 mg PO DAILY 02/24/15 Aspirin [Aspirin Adult Low Dose] 81 mg PO DAILY #120 tab 08/15/16 OXcarbazepine [Trileptal] 300 mg PO BID 02/04/18 Nitroglycerin 0.4 mg Tab [Nitrostat] 1 tablet SL Q5MIN PRN #1 bottle 02/05/18 Cetirizine HCl [Cetirizine Hydrochloride] 10 mg PO DAILY 09/22/18 Clonazepam 0.25 mg PO BEDTIME 09/22/18 Furosemide Tab [Lasix Tab] 40 mg PO DAILY 09/22/18 Ipratropium-Albuterol [Combivent Respimat 20-100 Mcg/Act] 120 puff IN DAILY 09/22/18 Losartan Potassium 50 mg PO DAILY 09/22/18 Potassium Chloride [Potassium Chloride ER] 10 meq PO BID 09/22/18 Primidone 50 mg PO BID 09/22/18 Tramadol HCl 50 mg PO TID PRN 09/22/18 Doxycycline (Monohydrate) [Doxycycline Monohydrate] 100 mg PO BID 7 Days #14 tab 03/21/19 predniSONE 40 mg PO DAILY #30 tab 03/21/19 Additional Instructions: the patient is a 59-year-old male presenting to emergency room due to shortness of breath and palpitations. He does have a history of some chronic lung disease. He is to continue his oral prednisone at home. He can do one of his breathing treatments every now and then if he needs to, if he feels like his lungs are tightening up. Otherwise he is to continue his Combivent inhaler primarily. No evidence of any overt infection was found. The patient did respond well to and ipratropium nebulizer treatment. The patient does have frequent PACs and PVCs which he does feel. These are likely made more frequent by the hypokalemia found here today. The patient was given 2 doses of oral potassium. He does need to increase his home potassium to 40 mEq twice a day. He needs to have this level rechecked in 1 week with his primary care doctor, and further dosages adjusted appropriately at that time. Laboratory work, EKG and chest x-ray were reassuring otherwise. Return to the emergency room for any acute worsening. Follow back up with primary care doctor in 1 week.
[2019-04-13 20:23] VITALS: BP 127/63; TEMP 98.2; O2SAT 93
== END 2019-04-13 20:15 | disposition home or self-care (01) ==
LOC: ER 16:23
DX: J44.1 Chronic obstructive pulmonary disease with (acute) exacerbation (principal); E87.6 Hypokalemia; I49.3 Ventricular premature depolarization; R00.0 Tachycardia, unspecified; I49.1 Atrial premature depolarization; F41.9 Anxiety disorder, unspecified; I25.2 Old myocardial infarction; I10 Essential (primary) hypertension; K21.9 Gastro-esophageal reflux disease without esophagitis; Z85.118 Personal history of other malignant neoplasm of bronchus and lung; Z87.891 Personal history of nicotine dependence; Z79.899 Other long term (current) drug therapy; Z79.82 Long term (current) use of aspirin; Z88.8 Allergy status to other drugs, medicaments and biological substances; Z88.5 Allergy status to narcotic agent; Z87.01 Personal history of pneumonia (recurrent)
CPT/HCPCS: 36415; 71046; 80053; 82550; 82553; 83735; 83880; 84443; 84484; 85025; 85379; 85610; 85730; 93005; 94640; J3480; J7644

== ENCOUNTER 2019-04-19 16:13 | Emergency (ER) | payer OTHER ==
[2019-04-19] MEDS ORDERED: SODIUM CHLORIDE 0.9% (FLUSH) 10 ML SYG IV PRN (16:18)
[2019-04-19] MEDS ORDERED: KETOROLAC TROMETHAMINE INJ 30 MG/ML VIAL IV ONE (16:19)
--- NOTE | 2019-04-19 16:26 | ED.PDOC ---
History of Present Illness - General Chief Complaint: Respiratory Problem Time Seen by Provider: 04/19/19 16:17 Source: patient - History of Present Illness Initial Comments: 59 yo male with PMH of severe COPD on continuous home O2 who is bib EMS from clinic for cc of headache. Onset last night and rapidly worsened today, located to back of head and radiates down entire back of neck, constant, pulsating, 9/10 severity, worse with neck movement, tried Tylenol with little relief, no hx of similar headaches. Also reports subjective fevers and chills since last night. Reports chronic cough and dyspnea, largely unchanged from usual. Hospitalized last month for several days for PNA and treated as outpatient last week for COPD/PNA as well with modest improvement. Denies any chest pain, abd pain, n/v/d, urinary sx's. No recent sick contacts. Allergies/Adverse Reactions: Allergies Codeine Allergy (Intermediate, Verified 04/13/19 16:59) Other vomiting, itch dizzy Meperidine [From Demerol HCl] Allergy (Intermediate, Verified 04/13/19 16:59) Other vomiting, dizzy itch Home Medications: Ambulatory Orders Trazodone HCl 100 mg PO BEDTIME 06/22/14 cloNAZepam [Klonopin] 0.5 mg PO DAILY 02/24/15 Aspirin [Aspirin Adult Low Dose] 81 mg PO DAILY #120 tab 08/15/16 OXcarbazepine [Trileptal] 300 mg PO BID 02/04/18 Nitroglycerin 0.4 mg Tab [Nitrostat] 1 tablet SL Q5MIN PRN #1 bottle 02/05/18 Cetirizine HCl [Cetirizine Hydrochloride] 10 mg PO DAILY 09/22/18 Clonazepam 0.25 mg PO BEDTIME 09/22/18 Furosemide Tab [Lasix Tab] 40 mg PO DAILY 09/22/18 Ipratropium-Albuterol [Combivent Respimat 20-100 Mcg/Act] 120 puff IN DAILY 09/22/18 Losartan Potassium 50 mg PO DAILY 09/22/18 Potassium Chloride [Potassium Chloride ER] 10 meq PO BID 09/22/18 Primidone 50 mg PO BID 09/22/18 Tramadol HCl 50 mg PO TID PRN 09/22/18 Doxycycline (Monohydrate) [Doxycycline Monohydrate] 100 mg PO BID 7 Days #14 tab 03/21/19 predniSONE 40 mg PO DAILY #30 tab 03/21/19 Review of Systems - Review of Systems Review of Systems: 04/19/19 16:26 as per HPI All other Systems: Reviewed and Negative Past Medical History (General) - Patient Medical History Hx Seizures: No Hx Stroke: No Hx Dementia: No Hx Asthma: Yes Hx of COPD: Yes Hx Cardiac Disorders: Yes - [place] 1986 Hx Congestive Heart Failure: No Hx Pacemaker: No Hx Hypertension: Yes Hx Thyroid Disease: No Hx Diabetes: No Hx Gastroesophageal Reflux: Yes Hx Renal Disease: No Hx Cancer: Yes - Lung Hx of HIV: No Hx Hepatitis C: No Hx MRSA: No - Vaccination History Hx Tetanus, Diphtheria Vaccination: No Hx Influenza Vaccination: Yes Hx Pneumococcal Vaccination: Yes - Social History Hx Tobacco Use: Yes Hx Chewing Tobacco Use: No Hx Alcohol Use: No Hx Substance Use: No Hx Substance Use Treatment: No Hx Depression: No Hx Physical Abuse: No Hx Emotional Abuse: No Hx Suspected Abuse: No - Female History Patient : No Family Medical History - Family History Father Living Status: Still Living Hx Family Hypertension: Yes Hx Cardiac Disease: Yes Hx Family Diabetes: Yes Hx Family;Other: lung CA Mother Family History: No Known Living Status: Still Living Hx Family Hypertension: Yes Hx Family Stroke: - dad Hx Cardiac Disease: Yes Hx Family Diabetes: Yes - parents Hx Family Cancer: - Lung CA Physical Exam - Physical Exam General Appearance: Alert, No apparent distress Eye Exam: bilateral normal Ears, Nose, Throat: hearing grossly normal, normal ENT inspection, normal pharynx Neck: normal inspection, other - moderate left posterolateral neck ttp, mild decreased ROM all directions due to pain, Kernig and Brudzinski neg Respiratory: chest non-tender, no respiratory distress, no accessory muscle use, rales - wet rales right lower lung base Cardiovascular/Chest: normal peripheral pulses, regular rate, rhythm, no edema, no gallop, no JVD, no murmur Gastrointestinal/Abdominal: non tender, soft, no organomegaly Back Exam: normal inspection, no CVA tenderness, no vertebral tenderness Extremity: normal range of motion, non-tender, normal inspection, no pedal edema, normal capillary refill Neurologic: no motor/sensory deficits, alert, normal mood/affect, oriented x 3 Skin Exam: normal color, warm/dry Progress - Progress Progress: 04/19/19 16:28 Headache -appears tension most likely. Consider also migraine vs other. Doubt lo james as afebrile here. -will obtain labs, CXR, EKG, place PIV -Toradol 30 mg IV for pain, reassess -if pt spikes fever, will likely obtain LP 04/19/19 18:22 -Pt has remained stable. Reports headache little improved so trying Phenergan 12.5 mg IV. Pt now reports new onset numbness sensation throughout RUE which he didn't report earlier. Also reports he has been feeling very dizzy since last night, which is worse with movements, sensation "like the room is spinning." No other focal neurological sx's reported. CXR reveals small BL pleural effusions but no evidence of focal infiltrate. Labwork shows normal WBC and lactate. UA unremarkable. Mild hypokalemia (replenished orally). -will obtain CT head and CT chest to better evaluate his neuro sx's/dizziness and abnormal CXR 04/19/19 19:31 -Pt feeling much better but still with some dizziness. BP 100s/80s, remainder of vitals wnl. CT head shows no acute processes. CT chest reveals some chronic emphysematous changes but no evidence of infiltrate, effusion, other acute processes. Flu testing negative. -Discussed his work-up is pretty unremarkable here. Suspect BRITO is tension BRITO and dizziness may be medication related (?tamsulosin just begun recently) vs ?vertigo. Does not appear to be emergent conditions. Advised rest, hydration, otc analgesics and close PCP f/u for both issues -dc home in good condition with , return warnings discussed at length Isaak Caballero MD Billing #[id number] - EKG/XRAY/CT EKG: Sinus - NSR, HR 95, frequent PVCs present, no ST elevations, intervals normal, axis normal, appears unchanged from 04/13/19 EKG. Departure - Departure Clinical Impression: Acute tension headache Qualifiers: Intractability: not intractable Qualified Code(s): G44.209 - Tension-type headache, unspecified, not intractable Time of Disposition: 19:38 Disposition: Discharge to Home or Self Care Condition: Fair Departure Forms: ED Discharge - Pt. Copy, Patient Portal Self Enrollment Instructions: Tension Headache (DC) Activity: increase activity as tolerated Referrals: Artis Huerta MD [Primary Care Provider] - 1-2 Weeks Home Medications: Ambulatory Orders Trazodone HCl 100 mg PO BEDTIME 06/22/14 cloNAZepam [Klonopin] 0.5 mg PO DAILY 02/24/15 Aspirin [Aspirin Adult Low Dose] 81 mg PO DAILY #120 tab 08/15/16 OXcarbazepine [Trileptal] 300 mg PO BID 02/04/18 Nitroglycerin 0.4 mg Tab [Nitrostat] 1 tablet SL Q5MIN PRN #1 bottle 02/05/18 Cetirizine HCl [Cetirizine Hydrochloride] 10 mg PO DAILY 09/22/18 Clonazepam 0.25 mg PO BEDTIME 09/22/18 Furosemide Tab [Lasix Tab] 40 mg PO DAILY 09/22/18 Ipratropium-Albuterol [Combivent Respimat 20-100 Mcg/Act] 120 puff IN DAILY 09/22/18 Losartan Potassium 50 mg PO DAILY 09/22/18 Potassium Chloride [Potassium Chloride ER] 10 meq PO BID 09/22/18 Primidone 50 mg PO BID 09/22/18 Tramadol HCl 50 mg PO TID PRN 09/22/18 Doxycycline (Monohydrate) [Doxycycline Monohydrate] 100 mg PO BID 7 Days #14 tab 03/21/19 predniSONE 40 mg PO DAILY #30 tab 03/21/19
--- NOTE | 2019-04-19 16:54 | RAD ---
EXAM: Chest,2 Views CLINICAL INDICATION: Shortness of breath COMPARISON: 04/13/2019 FINDINGS: A single view of the chest was obtained. The heart size is normal. The pulmonary vascularity is unremarkable. Small bilateral pleural effusions are noted right greater than left with mild atelectasis in both lung bases. Mild biapical pleural thickening is noted. The lungs are otherwise clear. There is no pneumothorax. IMPRESSION: Small bilateral pleural effusions with mild bibasilar atelectasis. No definite change from the previous study. Electronically signed by: Damian Newell MD 04/19/2019 4:52 PM CDT
[2019-04-19] MEDS ORDERED: POTASSIUM CHLORIDE ELIXIR 20 MEQ/15 ML UD PO ONE (17:00)
[2019-04-19] MEDS ORDERED: PROMETHAZINE HCL INJ 12.5 MG in SODIUM CHLORIDE 0.9% 50ML 50 ML IVPB ONE (17:38)
[2019-04-19] MEDS ORDERED: SODIUM CHLORIDE 0.9% 500ML 500 ML IVS ONE (17:39)
[2019-04-19] MEDS ORDERED: SODIUM CHLORIDE 0.9% 50ML 50 ML ONE (17:45)
[2019-04-19] MEDS ORDERED: PROMETHAZINE HCL INJ 25 MG/ML VIAL ONE (17:45)
--- NOTE | 2019-04-19 19:04 | CT ---
EXAM: Head CLINICAL INDICATION: Right upper extremity numbness COMPARISON: There is no previous study for comparison. TECHNIQUE: CT scan was done using contiguous axial 5 mm sections through the brain. This exam was performed according to our departmental dose-optimization program, which includes automated exposure control, adjustment of the mA and/or kV according to patient size and/or use of iterative reconstruction technique. FINDINGS: There is no midline shift, mass effect, or extraaxial fluid collection. There is no evidence of acute intracranial hemorrhage, mass lesion, or cerebral edema. The ventricles and cortical sulci are normal for the patient's age. Bone window images reveal no evidence of a skull fracture. IMPRESSION: No evidence of an acute intracranial process. Electronically signed by: Damian Newell MD 04/19/2019 7:02 PM CDT
--- NOTE | 2019-04-19 19:05 | CT ---
EXAM: Chest w/o Contrast CLINICAL INDICATION: Fever, shortness of breath COMPARISON: 12/12/2017 TECHNIQUE: The CT scan was done using contiguous axial 5 mm noncontrast sections through the chest. This exam was performed according to our departmental dose-optimization program, which includes automated exposure control, adjustment of the mA and/or kV according to patient size and/or use of iterative reconstruction technique. FINDINGS: The visualized portions of the upper abdominal structures reveal that the spleen is mildly enlarged measuring 14.8 cm but otherwise appear unremarkable. There are no enlarged mediastinal or hilar lymph nodes. Mild emphysematous changes are noted. Mild areas of subsegmental atelectasis are noted in both lung bases. The lungs are otherwise clear with no jose consolidation, pleural effusion, or pneumothorax. IMPRESSION: Mild emphysematous changes and areas of mild atelectasis. Otherwise negative CT of the chest. Incidentally noted splenomegaly. Electronically signed by: Damian Newell MD 04/19/2019 7:04 PM CDT
[2019-04-19 19:13] VITALS: O2SAT 96
[2019-04-19 20:10] VITALS: BP 99/62; TEMP 97.8
== END 2019-04-19 19:50 | disposition home or self-care (01) ==
LOC: ER 16:13
DX: G44.209 Tension-type headache, unspecified, not intractable (principal); J44.9 Chronic obstructive pulmonary disease, unspecified; I25.2 Old myocardial infarction; I10 Essential (primary) hypertension; K21.9 Gastro-esophageal reflux disease without esophagitis; Z99.81 Dependence on supplemental oxygen; Z85.118 Personal history of other malignant neoplasm of bronchus and lung; Z87.891 Personal history of nicotine dependence; Z79.82 Long term (current) use of aspirin; Z79.899 Other long term (current) drug therapy; Z88.8 Allergy status to other drugs, medicaments and biological substances
CPT/HCPCS: 36415; 70450; 71046; 71250; 80053; 81001; 83605; 83880; 85025; 87502; 93005; A4216; J1885; J2550; J7040

== ENCOUNTER → 2019-08-09 | Outpatient (CLI) | payer OTHER | LOC: LAB.O 08:22 | PROVIDERS: ATTEND Family Medicine | DX: I10 Essential (primary) hypertension (principal) ==

== ENCOUNTER → 2019-09-20 | Outpatient (CLI) | payer OTHER, MEDICAID | LOC: BFHH 15:51 | PROVIDERS: ATTEND Family Medicine | DX: I10 Essential (primary) hypertension (principal) ==

== ENCOUNTER → 2019-11-05 | Outpatient (CLI) | payer OTHER, MEDICAID ==
--- NOTE | 2019-11-05 13:37 | MRI ---
EXAM DESCRIPTION: Lumbar Spine w/o Contrast : Magnetic Resonance Imaging. CLINICAL HISTORY: DISC DEGENERATION COMPARISON: MRI lumbar spine noncontrast November 2018 TECHNIQUE: Multiplanar, multiple standard sequences, non contrast MRI, lumbar spine. FINDINGS: L5-S1: The disc is well visualized on axial T2 series 501, image 3. Normal signal in the disc with no bulging. Degenerative hypertrophy of the flavum ligaments and facet joints (canal elements) more right than left. AP canal diameter 12 mm. Mild narrowing of the bilateral foramina. Bilateral hyperintense T1 and T2 circumscribed hemangiomas in the S1 pedicles. No interval changes. L4-L5: Disc desiccation with disc space maintained. No posterior bulging. Moderate endplate reactive changes to the right of midline. Minimal degenerative hypertrophy of the posterior canal ligaments. AP canal diameter 13 mm. Bilateral mild foraminal narrowing. Stable since the prior study. L3-L4: Disc desiccation with anterior bulge and mild endplate reactive changes. Minimal disc space loss. No posterior bulge. Canal elements are unremarkable. AP canal diameter 13 mm. Mild bilateral foraminal narrowing. No change from the prior study. L2-L3: Minimal disc desiccation. Disc space maintained. Mild canal narrowing. Canal elements are unremarkable. Bilateral foramina are patent. No change. L1-L2: Normal signal in the disc with disc space maintained. Degenerative hypertrophy in the canal elements. Canal and foramina are patent. Conus terminates just above this level. Stable since the prior study. T12-L1: Normal signal in the disc. Superior minimal endplate erosions inferior T12. Tiny disc bulge. Minimal degenerative hypertrophy of the canal and its. Minimal canal narrowing. Bilateral foramina are patent. No change from the prior study. Upper lumbar kyphoscoliosis. Paravertebral soft tissues negative.. Distal cord normal signal and caliber. Otherwise normal marrow signal in the remaining vertebral bodies and the posterior elements. Vertebral bodies are not compressed at any level. IMPRESSION: 1. Multiple levels of dislocated discs, degenerative hypertrophy of the canal elements, and disc bulging at several levels. No canal or foraminal stenosis. No abnormal marrow signal. 2. Stable since the prior study November 2018. Electronically signed by: Alli Ferreira MD 11/05/2019 1:35 PM CDT
== END ==
LOC: MRI 09:00
PROVIDERS: ATTEND Family Medicine
DX: M51.36 Other intervertebral disc degeneration, lumbar region (principal); M51.86 Other intervertebral disc disorders, lumbar region; M46.96 Unspecified inflammatory spondylopathy, lumbar region

== ENCOUNTER → 2020-04-14 | Outpatient (CLI) | payer OTHER, MEDICAID | LOC: GMAM 14:50 | PROVIDERS: ATTEND Family Medicine | DX: Z79.899 Other long term (current) drug therapy (principal); Z12.5 Encounter for screening for malignant neoplasm of prostate; I10 Essential (primary) hypertension | CPT/HCPCS: 83036; 84439; 84443; G0103 ==